=== PATIENT | male | born 1950 | race Two or more races ===

== ENCOUNTER → 2016-08-07 | Outpatient (CLI) | payer MEDICAID ==
[~2016-08-07] MED LIST: GADOBUTROL 10 ML VIAL IVP ONE
== END ==
LOC: FIMAGING 12:06
PROVIDERS: ATTEND Internal Medicine Hematology & Oncology
DX: Z12.89 Encounter for screening for malignant neoplasm of other sites (principal); C34.90 Malignant neoplasm of unspecified part of unspecified bronchus or lung
CPT/HCPCS: A9585

== ENCOUNTER → 2016-08-19 | Day surgery (SDC) | payer MEDICAID ==
[~2016-08-19] MED LIST changes: +ACETAMINOPHEN 325 MG TAB ONE; -GADOBUTROL 10 ML VIAL IVP ONE; +LIDOCAINE 1% 30 ML SDV ONE; +MIDAZOLAM 2 MG/2 ML VIAL ONE; +NS 1,000 ML IV SCH; +fentaNYL 100 MCG/2 ML INJ ONE
== END | disposition home or self-care (01) ==
LOC: FIMAGING 07:27
PROVIDERS: ATTEND Internal Medicine Hematology & Oncology
PROC: 0B9C3ZX Drainage of Right Upper Lung Lobe, Percutaneous Approach, Diagnostic (ICD-10-PCS; principal; 2016-08-19)
DX: C34.01 Malignant neoplasm of right main bronchus (principal); I10 Essential (primary) hypertension; E11.9 Type 2 diabetes mellitus without complications; I48.91 Unspecified atrial fibrillation
CPT/HCPCS: J2250; J3010

== ENCOUNTER 2016-08-27 10:10 | Emergency (ER) | payer MEDICAID ==
[2016-08-27 10:15] VITALS: RESP 16
[2016-08-27] MEDS ORDERED: OXYMETAZOLINE 30 ML NASAL SPRAY ONE (10:34)
--- NOTE | 2016-08-27 10:35 | EDPHY ---
H & P Stated Complaint: EPISTAXIS YESTERDAY AND THEN THIS AM R SIDE HPI/ROS: CHIEF COMPLAINT: Nosebleed HISTORY OF PRESENT ILLNESS: Spontaneous nose bleed that 1st started yesterday morning. Soon as he woke up stood up, he started bleeding from the right naris. This lasted for 30 minutes and stop spontaneously. This occurred again this morning around 8:00 a.m.. It has not stopped. He feels that there is some blood on the back of the throat. No chest pain. No shortness of breath. No headache. No lightheadedness or dizziness. He does take Xarelto for atrial fibrillation. It no trauma to the nose. No other associated complaints or modifying factors. REVIEW OF SYSTEMS: Ten systems reviewed and are negative unless otherwise noted in the HPI PERTINENT MEDICAL HISTORY: Atrial fibrillation on Xarelto EXAMINATION General Appearance: Alert, no distress Head: normocephalic, atraumatic Eyes: Pupils equal and round, no conjunctival pallor or injection ENT, Mouth: Mucous membranes moist. EOMs intact. There is dry blood around the right near. There is a clamp on the nose this time. The posterior pharynx does reveal mild venous blood. No pulsatile blood flow. No asymmetry of the posterior pharynx. Uvula is midline. Airway is widely patent. Neck: Normal inspection, supple, non-tender Respiratory: Lungs are clear to auscultation Cardiovascular: Irregularly irregular. No murmur. Gastrointestinal: Abdomen is soft and nontender Skin: Warm and dry, no rash Extremities: Nontender, no pedal edema Psychiatric: Mood and affect normal DIFFERENTIAL DIAGNOSES: Including but not limited to epistaxis, posterior sphenoid bleed, anterior bleed , coagulopathy, anemia MDM: 10:35 a.m. Epistaxis that is recurrent. Today's nosebleed has been present for over 2 and 0.5 hours. There is mild blood in the posterior pharynx is nonpulsatile. He is awake and alert with stable vital signs. Coagulation studies and CBC have been ordered. Pressure is being applied at this time. 11:30 a.m. Patient was still bleeding minimally around the nose clamp. I have now applied a 7.5 rhino rocket. There is good tamponade. No bleeding. He tolerated this well. Hemoglobin and platelets are within normal limits. Monitor and plan for outpatient follow-up with ENT. 12:25 p.m. Patient has not had any return of epistaxis for the past hour. He has minimal pain, for which I have ordered [place]. He has been dosed with Keflex here and will be provided prescription. He is to contact ENT upon discharge for follow- up. He is also to contact his staff midwife to discuss the Xarelto. Return here for any return of bleeding, hemoptysis or blood from the mouth. He is comfortable with this plan and discharged home stable condition PROCEDURE: Epistaxis management Indication: epistaxis Consent: verbal Description: Right near was treated with Afrin and lidocaine with epinephrine, 3 mL. 7.5 cm rhino rocket was irrigated with sterile water. This was placement of the right nasal passage without complication. Tolerated well. Bleeding was hemostasis. Follow-up: ENT in 2-3 days SUPERVISION: This patient was independently evaluated without direct examination by the attending physician. Case was discussed with attending physician. Source: Patient Exam Limitations: No limitations - Personal History Current Tetanus/Diphtheria Vaccine: Yes Tetanus Vaccine Date: < 10 YEARS - Medical/Surgical History Hx Asthma: No Hx Chronic Respiratory Disease: No Hx Diabetes: Yes Hx Cardiac Disease: No Hx Renal Disease: No Hx Cirrhosis: No Hx Alcoholism: No Hx HIV/AIDS: No Hx Splenectomy or Spleen Trauma: No Other PMH: NON SMALL CELL LUNG CANCER, DIABETES, HTN, HIGH CHOLESTEROL - Social History Smoking Status: Former smoker Constitutional: Initial Vital Signs Temperature (C) 98.6 F 08/27/16 10:11 Heart Rate 70 08/27/16 10:11 Respiratory Rate 16 08/27/16 10:11 Blood Pressure 154/81 H 08/27/16 10:11 O2 Sat (%) 93 08/27/16 10:11 O2 Delivery Mode Room Air Allergies/Adverse Reactions: No Known Allergies Allergy (Unverified 08/27/16 10:15) Home Medications: Medication Instructions Recorded Amlodipine Besylate 10 mg PO DAILY 08/15/16 Aspirin 81mg (*) 81 mg PO DAILY 08/15/16 Atorvastatin Calcium 80 mg PO DAILY 08/15/16 Centrum Silver Tablet PO DAILY 08/15/16 FENOFIBRATE 134 mg PO DAILY 08/15/16 Glimepiride 4 mg PO DAILY 08/15/16 HCTZ (*) 25 mg PO DAILY 08/15/16 Metoprolol Tartrate 25 mg PO DAILY 08/15/16 Omeprazole 40 mg PO DAILY 08/15/16 Pot Citrate-Citric Acid Packet 25 meq PO DAILY 08/15/16 Tamsulosin HCl 0.4 mg PO DAILY 08/15/16 Tradjenta 5 mg PO DAILY 08/15/16 Xarelto 20 mg PO DAILY 08/15/16 Cephalexin [Keflex (*)] 500 mg PO TID #30 cap 08/27/16 Hydrocodone/APAP 5/325 [[place]land 1 - 2 tab PO Q4H PRN #10 tab 08/27/16 5/325 (*)] Medical Decision Making - Data Points Laboratory Results: Laboratory Results 08/27/16 10:43 08/27/16 08/27/16 10:43 10:43 WBC 7.31 10^3/uL 10^3/uL (3.80-9.50) RBC 4.39 10^6/uL L 10^6/uL (4.40-6.38) Hgb 13.0 g/dL L g/dL (13.7-17.5) Hct 39.8 % L % (40.0-51.0) MCV 90.7 fL fL (81.5-99.8) MCH 29.6 pg pg (27.9-34.1) MCHC 32.7 g/dL g/dL (32.4-36.7) RDW 14.0 % % (11.5-15.2) Plt Count 472 10^3/uL H 10^3/uL (150-400) PT 18.0 SEC H SEC (12.0-15.0) INR 1.49 H (0.83-1.16) APTT 45.6 SEC H SEC (23.0-38.0) Departure - Departure Disposition: Home, Routine, Self-Care Clinical Impression: Epistaxis, Coagulation disorder Condition: Good Instructions: Nosebleed (ED) Additional Instructions: Contact primary care physician to discuss holding his Xarelto due to the nose bleed. Contact ENT physician for follow-up regarding the rhino rocket. Keflex prophylaxis as prescribed. Return here for signs of bleeding, dizziness, lightheadedness, syncope or chest pain Referrals: TALAT OLIVER [Other] - As per Instructions Shannon Messer MD [Medical Doctor] - As per Instructions Prescriptions: Cephalexin [Keflex (*)] 500 mg PO TID #30 cap Hydrocodone/APAP 5/325 [[place] 5/325 (*)] 1 - 2 tab PO Q4H PRN #10 tab PRN Reason: Pain, Moderate
[2016-08-27 10:51] LABS: HEMATOCRIT 39.8 % (40.0-51.0); LIPEMIA HEMOLYSIS FLAG 80 (0-99); MEAN CELL HEMOGLOBIN 29.6 pg (27.9-34.1); MEAN CELL HEMOGLOBIN CONCENTR. 32.7 g/dL (32.4-36.7); MEAN CELL VOLUME 90.7 fL (81.5-99.8); PLATELET COUNT 472 10^3/uL (150-400); RED BLOOD CELL COUNT 4.39 10^6/uL (4.40-6.38)
[2016-08-27 11:01] LABS: INR 1.49 (0.83-1.16)
[2016-08-27 11:02] LABS: APTT 45.6 SEC (23.0-38.0)
[2016-08-27] MEDS ORDERED: CEPHALEXIN 500 MG CAP PO ONE (11:38)
[2016-08-27] MEDS ORDERED: HYDROCODONE/APAP 5/325 TAB PO ONE (12:26)
[2016-08-27 12:53] VITALS: BP 114/72; PULSE 54; TEMP 98.8; O2SAT 96
[2016-08-27] MEDS ORDERED: OXYMETAZOLINE 30 ML NASAL SPRAY EACHNARE SCH (21:00)
== END 2016-08-27 12:52 | disposition home or self-care (01) ==
PROC: 2Y41X5Z Packing of Nasal Region using Packing Material (ICD-10-PCS; principal; 2016-08-27)
DX: R04.0 Epistaxis (principal); E11.9 Type 2 diabetes mellitus without complications; I10 Essential (primary) hypertension; D68.9 Coagulation defect, unspecified; Z79.01 Long term (current) use of anticoagulants; Z79.82 Long term (current) use of aspirin; Z85.118 Personal history of other malignant neoplasm of bronchus and lung; Z87.891 Personal history of nicotine dependence
CPT/HCPCS: J1170

== ENCOUNTER 2016-08-27 22:00 | Emergency (ER) | payer MEDICAID ==
[2016-08-27 22:15] VITALS: RESP 16; TEMP 97.7
[2016-08-27] MEDS ORDERED: HYDROmorphONE/DILAUDID 1 MG/ML SYR IM ONE (23:25)
[2016-08-28 00:18] VITALS: BP 116/78; PULSE 58; O2SAT 92
--- NOTE | 2016-08-28 00:23 | EDPHY ---
H & P Stated Complaint: pain/pressure fm Rhino Rocket Time Seen by Provider: 08/27/16 23:04 HPI/ROS: Chief complaint: Nose pain, headache HPI: 66-year-old male on Xarelto presenting with headache and face pain after having a rhino rocket placed in this emergency department earlier today. Patient has been taking Cecilia without any significant relief. Denies any fevers or chills. Has not had any further bleeding. He has made an appointment to follow up with ENT in several days. ROS: 10 point Review of Systems is negative except as noted in the HPI. Gen: Awake, Alert, No Distress HEENT: Nose: Nasal balloon in right nostril Eyes: PERRLA, EOMI Mouth: Moist mucosa Neck: Supple, no JVD Skin: no rash Neuro: CN II-XII intact, Sensation grossly intact, Strength 5/5 in bilateral upper and lower extremities - Personal History Current Tetanus/Diphtheria Vaccine: Yes Current Tetanus Diphtheria and Acellular Pertussis (TDAP): Yes Tetanus Vaccine Date: < 10 YEARS - Medical/Surgical History Hx Asthma: No Hx Chronic Respiratory Disease: No Hx Diabetes: Yes Hx Cardiac Disease: No Hx Renal Disease: No Hx Cirrhosis: No Hx Alcoholism: No Hx HIV/AIDS: No Hx Splenectomy or Spleen Trauma: No Other PMH: NON SMALL CELL LUNG CANCER, DIABETES, HTN, HIGH CHOLESTEROL - Social History Smoking Status: Former smoker Constitutional: Initial Vital Signs Temperature (C) 36.5 C 08/27/16 22:10 Heart Rate 68 08/27/16 22:10 Respiratory Rate 16 08/27/16 22:10 Blood Pressure 131/99 H 08/27/16 22:10 O2 Sat (%) 94 08/27/16 22:10 O2 Delivery Mode Room Air Allergies/Adverse Reactions: No Known Allergies Allergy (Unverified 08/27/16 10:15) Home Medications: Medication Instructions Recorded Amlodipine Besylate 10 mg PO DAILY 08/15/16 Aspirin 81mg (*) 81 mg PO DAILY 08/15/16 Atorvastatin Calcium 80 mg PO DAILY 08/15/16 Centrum Silver Tablet PO DAILY 08/15/16 FENOFIBRATE 134 mg PO DAILY 08/15/16 Glimepiride 4 mg PO DAILY 08/15/16 HCTZ (*) 25 mg PO DAILY 08/15/16 Metoprolol Tartrate 25 mg PO DAILY 08/15/16 Omeprazole 40 mg PO DAILY 08/15/16 Pot Citrate-Citric Acid Packet 25 meq PO DAILY 08/15/16 Tamsulosin HCl 0.4 mg PO DAILY 08/15/16 Tradjenta 5 mg PO DAILY 08/15/16 Xarelto 20 mg PO DAILY 08/15/16 Cephalexin [Keflex (*)] 500 mg PO TID #30 cap 08/27/16 Hydrocodone/APAP 5/325 [Cecilia 1 - 2 tab PO Q4H PRN #10 tab 08/27/16 5/325 (*)] IBUPROFEN 08/27/16 oxyCODONE/APAP 5/325 [Percocet 1 - 2 tab PO Q4H PRN #10 tab 08/28/16 5/325 (*)] Medical Decision Making ED Course/Re-evaluation: Patient given IM Dilaudid here. Feeling significantly improved. I have counseled him instructed that the nasal packing knee sustained placed the next 2 days. He will be sent home with oral Percocet as needed for pain. Follow up as scheduled. Packing is be removed in 2 days per his return instructions. - Data Points Medications Given: Discontinued Medications Hydromorphone HCl (Dilaudid) 2 mg IM EDNOW ONE Stop: 08/27/16 23:26 Last Admin: 08/27/16 23:39 Dose: 2 mg Departure - Departure Disposition: Home, Routine, Self-Care Clinical Impression: Epistaxis Condition: Good Instructions: Nosebleed (ED) Additional Instructions: He may take oxycodone every 4 hours as needed for pain, 1 mg tablets. Follow up with your doctor in [facility] in 2 days for nasal packing removal. Referrals: TALAT OLIVER [Other] - As per Instructions Prescriptions: oxyCODONE/APAP 5/325 [Percocet 5/325 (*)] 1 - 2 tab PO Q4H PRN #10 tab PRN Reason: Pain, Severe
== END 2016-08-28 00:31 | disposition home or self-care (01) ==
DX: R04.0 Epistaxis (principal); E11.9 Type 2 diabetes mellitus without complications; I10 Essential (primary) hypertension; Z79.01 Long term (current) use of anticoagulants; Z79.82 Long term (current) use of aspirin; Z85.118 Personal history of other malignant neoplasm of bronchus and lung; Z87.891 Personal history of nicotine dependence
CPT/HCPCS: J1170

== ENCOUNTER 2016-08-29 14:11 | Emergency (ER) | payer MEDICAID ==
[2016-08-29 14:17] VITALS: BP 125/71; PULSE 72; RESP 16; TEMP 97.5; O2SAT 92
--- NOTE | 2016-08-29 15:07 | EDPHY ---
H & P Time Seen by Provider: 08/29/16 15:01 HPI/ROS: CHIEF COMPLAINT: Removal of nasal packing HISTORY OF PRESENT ILLNESS: 66-year-old male who was seen here 2 days ago and had a rhino rocket placed in the right naris for epistaxis. He is unable to obtain an appointment at ENT and is wishing to have the rhino rocket removed. He no longer has bleeding. He is currently taking antibiotics. Patient denies other complaints. REVIEW OF SYSTEMS: Aside from elements discussed in the HPI, a comprehensive 10-point review of systems was reviewed and is negative. PAST MEDICAL HISTORY: Non-small cell lung cancer, hypertension, diabetes. Patient is on Xarelto. SOCIAL HISTORY: Here with his family. GENERAL APPEARANCE: Pleasant, alert, no distress. FOCUSED EXAM OF ENT: Rhino rocket is present in the right nares. No bleeding. Oropharynx is clear. No posterior blood. No bleeding from the left naris. Smoking Status: Former smoker Constitutional: Initial Vital Signs Temperature (C) 36.4 C 08/29/16 14:14 Heart Rate 72 08/29/16 14:14 Respiratory Rate 16 08/29/16 14:14 Blood Pressure 125/71 H 08/29/16 14:14 O2 Sat (%) 92 08/29/16 14:14 O2 Delivery Mode Room Air Allergies/Adverse Reactions: No Known Allergies Allergy (Unverified 08/27/16 10:15) Home Medications: Medication Instructions Recorded Amlodipine Besylate 10 mg PO DAILY 08/15/16 Aspirin 81mg (*) 81 mg PO DAILY 08/15/16 Atorvastatin Calcium 80 mg PO DAILY 08/15/16 Centrum Silver Tablet PO DAILY 08/15/16 FENOFIBRATE 134 mg PO DAILY 08/15/16 Glimepiride 4 mg PO DAILY 08/15/16 HCTZ (*) 25 mg PO DAILY 08/15/16 Metoprolol Tartrate 25 mg PO DAILY 08/15/16 Omeprazole 40 mg PO DAILY 08/15/16 Pot Citrate-Citric Acid Packet 25 meq PO DAILY 08/15/16 Tamsulosin HCl 0.4 mg PO DAILY 08/15/16 Tradjenta 5 mg PO DAILY 08/15/16 Xarelto 20 mg PO DAILY 08/15/16 Cephalexin [Keflex (*)] 500 mg PO TID #30 cap 08/27/16 Hydrocodone/APAP 5/325 [Karval 1 - 2 tab PO Q4H PRN #10 tab 08/27/16 5/325 (*)] IBUPROFEN 08/27/16 oxyCODONE/APAP 5/325 [Percocet 1 - 2 tab PO Q4H PRN #10 tab 08/28/16 5/325 (*)] MDM/Departure - [facility] ED Course/Re-evaluation: Balloon was deflated in the packing was easily removed. On examination afterwards I see no acute bleeding source. Patient is comfortable being discharged. Differential Diagnosis: Differential diagnosis: Nasal packing removal, continued epistaxis. - Depart Disposition: Home, Routine, Self-Care Clinical Impression: Acute anterior epistaxis, Encounter for removal of nasal packing Condition: Good Instructions: Nosebleed (ED) Referrals: NONE *PRIMARY CARE P,. [Primary Care Provider] - As per Instructions
== END 2016-08-29 15:12 | disposition home or self-care (01) ==
DX: R04.0 Epistaxis (principal); I10 Essential (primary) hypertension; E11.9 Type 2 diabetes mellitus without complications; C34.90 Malignant neoplasm of unspecified part of unspecified bronchus or lung; Z48.00 Encounter for change or removal of nonsurgical wound dressing; Z79.01 Long term (current) use of anticoagulants; Z79.82 Long term (current) use of aspirin; Z87.891 Personal history of nicotine dependence

== ENCOUNTER 2016-09-16 12:18 | Inpatient (IN) | payer MEDICAID ==
--- NOTE | 2016-09-16 14:44 | EDPHY ---
H & P Stated Complaint: 2 weeks sciatic back pain, pt wants stat MRI Time Seen by Provider: 09/16/16 14:23 HPI/ROS: CHIEF COMPLAINT: Lower back pain HISTORY OF PRESENT ILLNESS: This is a 66-year-old male patient presenting to the emergency department sent by [facility] to rule out any metastasis of lung cancer to spine. Patient states he was diagnosed with lung cancer in August of this year, trial of chemo, last IV chemo was 4 days ago. Patient states over the past 2 weeks he has had an increased pain in his mid back radiating to his lower back radiating to his right lower leg. Patient states" the pain is so bad I can't walk or move my legs sometime" denies any chest pain or shortness of breath no bowel or bladder incontinence REVIEW OF SYSTEMS: Constitutional: No fever, no chills. Eyes: No discharge. No blurred vision ENT: No sore throat. Cardiovascular: No chest pain, no palpitations. Respiratory: No cough, no shortness of breath. Gastrointestinal: No abdominal pain, no vomiting. Genitourinary: No no difficulty urinating Musculoskeletal: back pain. Skin: No rashes. Neurological: No headache. Source: Patient - Personal History Current Tetanus/Diphtheria Vaccine: Yes Current Tetanus Diphtheria and Acellular Pertussis (TDAP): Yes Tetanus Vaccine Date: < 10 YEARS - Medical/Surgical History Hx Asthma: No Hx Chronic Respiratory Disease: No Hx Diabetes: Yes Hx Cardiac Disease: No Hx Renal Disease: No Hx Cirrhosis: No Hx Alcoholism: No Hx HIV/AIDS: No Hx Splenectomy or Spleen Trauma: No Other PMH: NON SMALL CELL LUNG CANCER, DIABETES, HTN, HIGH CHOLESTEROL - Social History Smoking Status: Former smoker - Physical Exam Exam: General Appearance: Alert, no distress. Eyes: Pupils equal and round no pallor or injection. ENT, Mouth: Mucous membranes moist. No stomatitis Respiratory: There are no retractions, lungs are clear to auscultation. Cardiovascular: Regular rate and rhythm. Gastrointestinal: Abdomen is soft and nontender, no masses, bowel sounds normal. Neurological: No focal deficits Skin: Warm and dry, no rashes. Musculoskeletal: Thoracic/lumbar vertebral tenderness on palpation. Right hamstring tenderness on palpation full range of motion. Positive CMS intact Extremities: symmetrical, full range of motion. Psychiatric: Patient is oriented X 3, there is no agitation. Patient acting appropriate Constitutional: Initial Vital Signs Temperature (C) 36.8 C 09/16/16 12:21 Heart Rate 96 09/16/16 12:21 Respiratory Rate 16 09/16/16 12:21 Blood Pressure 111/80 09/16/16 12:21 O2 Sat (%) 98 09/16/16 12:21 O2 Delivery Mode Room Air Allergies/Adverse Reactions: No Known Allergies Allergy (Unverified 08/27/16 10:15) Home Medications: Medication Instructions Recorded Amlodipine Besylate 10 mg PO DAILY 08/15/16 Aspirin 81mg (*) 81 mg PO DAILY 08/15/16 Atorvastatin Calcium 80 mg PO DAILY 08/15/16 Centrum Silver Tablet PO DAILY 08/15/16 FENOFIBRATE 134 mg PO DAILY 08/15/16 Glimepiride 4 mg PO DAILY 08/15/16 HCTZ (*) 25 mg PO DAILY 08/15/16 Metoprolol Tartrate 25 mg PO DAILY 08/15/16 Omeprazole 40 mg PO DAILY 08/15/16 Pot Citrate-Citric Acid Packet 25 meq PO DAILY 08/15/16 Tamsulosin HCl 0.4 mg PO DAILY 08/15/16 Tradjenta 5 mg PO DAILY 08/15/16 Xarelto 20 mg PO DAILY 08/15/16 Cephalexin [Keflex (*)] 500 mg PO TID #30 cap 08/27/16 Hydrocodone/APAP 5/325 [[place] 1 - 2 tab PO Q4H PRN #10 tab 08/27/16 5/325 (*)] IBUPROFEN 08/27/16 oxyCODONE/APAP 5/325 [Percocet 1 - 2 tab PO Q4H PRN #10 tab 08/28/16 5/325 (*)] Medical Decision Making ED Course/Re-evaluation: Discussed ED plan of care: MRI of thoracic and lumbar vertebral spine, IV Dilaudid 1730: Patient MRI at this time, no apparent distress well appearing, pain has been relieved with Dilaudid. Report handed to Dr. Liu - Data Points Medications Given: Discontinued Medications Hydromorphone HCl (Dilaudid) 2 mg PO EDNOW ONE Stop: 09/16/16 14:47 Last Admin: 09/16/16 15:07 Dose: 2 mg Hydromorphone HCl (Dilaudid) 1 mg IVP EDNOW ONE Stop: 09/16/16 15:13 Last Admin: 09/16/16 15:35 Dose: 1 mg Departure - Departure Clinical Impression: Back pain Qualifiers: Back pain location: thoracic back pain Chronicity: acute Back pain laterality: midline Qualified Code(s): M54.6 - Pain in thoracic spine Condition: Good Referrals: Gerald Solis MD [Primary Care Provider] - As per Instructions
[2016-09-16] MEDS ORDERED: HYDROmorphONE/DILAUDID 2 MG TAB PO ONE (14:46)
[2016-09-16] MEDS ORDERED: HYDROmorphONE/DILAUDID 2 MG/ML INJ ONE (15:10)
[2016-09-16] MEDS ORDERED: HYDROmorphONE/DILAUDID 1 MG/ML SYR IVP ONE ×2 (15:12→20:00)
[2016-09-16] MEDS ORDERED: GADOBUTROL 10 ML VIAL IVP ONE (18:06)
--- NOTE | 2016-09-16 19:59 | EDPHY ---
ED Progress Note Narrative: The patient was signed out to me by the PA, Alexa Gaines, pending MRI results. 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 8:00 p.m.: I discussed findings with the patient. I will consult the biomedical electronics technician oncologist and neurosurgeon. 8:10 p.m.: I spoke to Dr. Quan, Oncology, who would like the patient started on a steroid and admitted to Neurosurgery. 8:15 p.m.: I spoke to Neurosurgeon, who will consult, but would like patient admitted to the hospitalist. 8:20 p.m.: I spoke to the hospitalist team, the patient will be admitted to Dr. Humphrey.
[2016-09-16] MEDS ORDERED: DEXAMETHASONE 4 MG TAB PO ONE (20:26)
[2016-09-16] MEDS ORDERED: ONDANSETRON DISINTEGRATING 4 MG TAB PO PRN (20:39)
[2016-09-16] MEDS ORDERED: ONDANSETRON 4 MG/2 ML VIAL IVP PRN (20:39)
[2016-09-16] MEDS ORDERED: ACETAMINOPHEN 325 MG TAB PO PRN (20:39)
[2016-09-16] MEDS ORDERED: MAGNESIUM HYDROXIDE 30 ML UDCUP PO PRN (20:42)
[2016-09-16] MEDS ORDERED: LACTULOSE 20 GM/30 ML UDCUP PO PRN (20:42)
[2016-09-16] MEDS ORDERED: BISACODYL 10 MG SUPP PR PRN (20:42)
[2016-09-16] MEDS ORDERED: POLYETHYLENE GLYCOL 3350 17 GM PKT PO PRN (20:42)
[2016-09-16] MEDS ORDERED: D50W 25 GM/50 ML SYR IVP PRN (21:44)
--- NOTE | 2016-09-16 21:51 | PDGENHP ---
History and Physical - Chief Complaint acute back pain - History of Present Illness primary care provider: In [place] [facility] oncologist: Dr. Solis HPI: 66-year-old male presenting with acute back pain located in the mid and lower back, characterized as severe and radiating into the right lower extremity , exacerbated by ambulation and not alleviated by home doses of ibuprofen, gabapentin, oxycodone. Patient reports that the onset of his pain was approximately 2 weeks ago and has been persistent duration and worsening thereafter. Pain became so unbearable on the day of presentation he sought medical attention. He reports that it has been somewhat alleviated by the Dilaudid received in the emergency department. He denies any constipation or urinary retention. He has otherwise been taking all of his home medications with last dose of Xarelto on the evening prior, 6/4 p.m., last dose of aspirin 6 /5 a.m.. History Information - Allergies/Home Medication List Allergies/Adverse Reactions: No Known Allergies Allergy (Unverified 08/27/16 10:15) Home Medications: Aspirin EC [Aspirin EC 81 mg (*)] 81 mg PO DAILY 09/16/16 [Last Taken 09/16/16] Atorvastatin Calcium [Lipitor 80 mg] 80 mg PO DAILY 09/16/16 [Last Taken ] Fenofibrate,Micronized [Fenofibrate] 134 mg PO DAILY 09/16/16 [Last Taken ] Gabapentin [Neurontin 100 MG (*)] 300 mg PO Q8H PRN 09/16/16 [Last Taken ] Glimepiride [Amaryl] 4 mg PO HS 09/16/16 [Last Taken 09/15/16] Hydrochlorothiazide [HCTZ (*)] 25 mg PO DAILY 09/16/16 [Last Taken 09/16/16] Linagliptin [Tradjenta] 5 mg PO DAILY 09/16/16 [Last Taken 09/16/16] Metoprolol Tartrate 25 mg PO DAILY 09/16/16 [Last Taken 09/16/16] Multivitamins [Multivitamin (*)] 1 each PO DAILY 09/16/16 [Last Taken 09/16/16] Omeprazole 40 mg PO DAILY 09/16/16 [Last Taken 09/16/16] Potassium Chloride 20 meq PO DAILY 09/16/16 [Last Taken 09/16/16] Rivaroxaban [Xarelto] 20 mg PO HS 09/16/16 [Last Taken 09/15/16] Tamsulosin HCl [Flomax 0.4 MG (*)] 0.4 mg PO DAILY 09/16/16 [Last Taken 09/16/16 ] amLODIPine BESYLATE [Amlodipine Besylate] 10 mg PO DAILY 09/16/16 [Last Taken ] I have personally reviewed and updated: family history, medical history, social history, surgical history - Past Medical History atrial fibrillation ( Status post DC cardioversion x2 with recent conversion back into AFib with news of his malignancy), diabetes type 2, hypertension, hyperlipidemia Additional medical history: metastatic non-small cell lung cancer currently receiving chemotherapy, last dosage 4 days ago. Osteoarthritis - Surgical History Additional surgical history: right knee surgery - Family History Additional family history: no family history of neurologic issues - Social History Smoking Status: Former smoker Alcohol Use: Occasionally Drug Use: None Additional social history: patient reports that he does not experience shortness of breath or chest pain when he ambulates upstairs, otherwise does not participate in regular physical exercise Review of Systems ROS: 10pt was reviewed & negative except for what was stated in HPI & below Muscolosketal: Reports: back pain Physical Exam Temp Pulse Resp BP Pulse Ox 37.3 C 79 18 103/68 92 09/16/16 21:35 09/16/16 21:35 09/16/16 21:35 09/16/16 21:35 09/16/16 21:35 O2 (L/minute) 2 Constitutional: no apparent distress, obese, uncomfortable, No not in pain ( mild pain) Eyes: PERRL, anicteric sclera, EOMI Ears, Nose, Mouth, Throat: moist mucous membranes, hearing normal, ears appear normal, no oral mucosal ulcers Cardiovascular: irregularly irregular, No systolic murmur, No tachycardia, No edema Respiratory: no respiratory distress, no rales or rhonchi, clear to auscultation Gastrointestinal: normoactive bowel sounds, soft, non-tender abdomen, no palpable masses, distension ( mildly) Musculoskeletal: other ( tenderness over the lower thoracic and upper lumbar spine) Neurologic: AAOx3, sensation intact bilaterally, other ( positive straight leg raise on the right), No weakness ( motor strength 5/5 bilateral lower extremity) Psychiatric: interacting appropriately, not anxious, not encephalopathic, thought process linear Assessment & Plan Assessment: 66-year-old male presenting with metastatic non-small cell lung cancer to the thoracic and lumbar spine with central disc herniation and cord compression resulting in acute back pain Plan: 1. Spinal cord compression and Spinal cord edema. Secondary to structural, metastatic lesions with central disc herniation resulting in pain, no evidence of bowel or bladder dysfunction, no evidence of lower extremity weakness or atrophy - placed on neuro checks - discussed with Dr. Sherrie Liu, she has informed me that Dr. Quan recommended dexamethasone and this will be continued 4 mg IV q.6 - appreciate neurosurgical evaluation to determine whether surgery is indicated - patient has an RCRI of 0 conferring 0.5% risk of perioperative cardiovascular morbidity and/or mortality, conferring a low cardiovascular risk for an intermediate to high risk neurosurgical procedure - the patient reports that he had a Lexiscan stress test within the last year I would recommend ordering these records from his outpatient provider in [place] , order placed to verify that patient had no evidence of ischemia - that being said, the patient does currently have atrial fibrillation and he is currently in a rate controlled AFib rhythm, requiring ongoing telemetry monitoring given his risk of rapid ventricular response if he does undergo surgery - would recommend that his beta-kaleigh be continued currently holding his Xarelto and aspirin, exact date of procedure to mitigate bleeding risks will be per Neurosurgery but I would recommend at least 48 hours off of Xarelto given that this is a neurosurgical procedure, and patient will be greater than 48 hours out from last dosage by 6/7 a.m. 2. Back pain. Acute, secondary to above, attempt to manage pain with oral and IV Dilaudid, continue bowel regimen, avoid nonsteroidal anti-inflammatory medications -placed gabapentin on scheduled dosing given that the patient was taking as needed at home which is an ineffective way of dosing gabapentin 3. non-small cell lung cancer. Recent diagnosis in July of 2016, reviewed outside records including brain MRI demonstrating atrophy but no intracranial metastases -patient is currently undergoing outpatient chemotherapy protocol -appreciate oncology consultation 4. Permanent atrial fibrillation. Patient is status post cardioversion x2 with recent conversion back into AFib in the setting of receiving news about his malignancy -as noted above, hold his anticoagulation anti-platelet medications -continue metoprolol -placed on telemetry monitoring to ensure he does not go into rapid ventricular response 5. Hypertension. Chronic, continue amlodipine and hydrochlorothiazide with potassium supplementation, monitor his daily electrolytes Diet. Cardiac, NPO in a.m. in case the surgical team does need to perform emergent surgery if his neurologic exam evolves Prophylaxis. High risk patient, begin SCDs given the patient may require surgery Code. Full per patient, his is MPOA Disposition. Anticipated discharge uncertain this time, anticipated length stay is greater than 48 hours warranting inpatient admission status for acute cord compression with spinal cord edema secondary to non-small cell lung cancer , likely requiring urgent surgery.
[2016-09-16] MEDS: GABAPENTIN 100 MG CAP PO SCH (23:03)
[2016-09-16] MEDS: SENNOSIDES/DOCUSATE SODIUM TAB PO SCH (23:03)
[2016-09-16] MEDS: HYDROmorphONE/DILAUDID 2 MG TAB PO PRN (23:04)
[2016-09-16] MEDS: DEXAMETHASONE 4 MG/ML VIAL IVP SCH (23:04)
[2016-09-16] MEDS: TEMAZEPAM 15 MG CAP PO PRN (23:04)
[2016-09-16] MEDS: NS 1,000 ML IV SCH (23:05)
[2016-09-17] MEDS: DEXAMETHASONE 4 MG/ML VIAL IVP SCH ×4 (05:50→23:03)
[2016-09-17] MEDS: GABAPENTIN 100 MG CAP PO SCH ×3 (05:50→21:33)
[2016-09-17] MEDS: HYDROmorphONE/DILAUDID 2 MG TAB PO PRN ×2 (05:50→21:37)
[2016-09-17] MEDS: NS 1,000 ML IV SCH ×2 (05:52→15:27)
[2016-09-17] MEDS: SENNOSIDES/DOCUSATE SODIUM TAB PO SCH ×2 (08:02→21:34)
[2016-09-17] MEDS: TAMSULOSIN HCL 0.4 MG CAP PO SCH (08:03)
[2016-09-17] MEDS: HYDROCHLOROTHIAZIDE 25 MG TAB PO SCH (08:04)
[2016-09-17] MEDS: ATORVASTATIN CALCIUM 40 MG TAB PO SCH (08:04)
[2016-09-17] MEDS: HYDROmorphONE/DILAUDID 1 MG/ML SYR IVP PRN ×2 (08:05→13:29)
[2016-09-17] MEDS: MULTIVITAMINS 1 EACH TAB PO SCH (08:05)
[2016-09-17] MEDS: INSULIN REGULAR HUMAN 100 UNIT/ML SC SCH ×4 (08:05→22:58)
[2016-09-17] MEDS: POTASSIUM CL 20 MEQ TAB PO SCH (08:05)
[2016-09-17 08:34] LABS: ALANINE AMINOTRANSFERASE 32 IU/L (21-72); ALBUMIN 3.3 g/dL (3.5-5.0); ALKALINE PHOSPHATASE 89 IU/L (38-126); ANION GAP 8 mEq/L (8-16); ASPARTATE AMINOTRANSFERASE 17 IU/L (17-59); BILIRUBIN,TOTAL 0.5 mg/dL (0.1-1.4); CALCIUM 8.5 mg/dL (8.5-10.4); CARBON DIOXIDE 24 mEq/l (22-31); CHLORIDE 107 mEq/L (97-110); CREATININE 0.7 mg/dL (0.7-1.3); GLOMERULAR FILTRATION RATE > 60; GLUCOSE 191 mg/dL (70-100); INR 1.22 (0.83-1.16); POTASSIUM 4.7 mEq/L (3.5-5.2); PROTIME(PATIENT) 15.4 SEC (12.0-15.0); SODIUM 139 mEq/L (134-144); TOTAL PROTEIN 6.2 g/dL (6.3-8.2)
[2016-09-17 08:35] LABS: APTT 35.7 SEC (23.0-38.0)
[2016-09-17] MEDS ORDERED: METOPROLOL TARTRATE 25 MG TAB PO SCH (09:00)
[2016-09-17] MEDS ORDERED: FENOFIBRATE MICRONIZED 134 MG PO SCH (09:00)
[2016-09-17] MEDS: PANTOPRAZOLE SODIUM 40 MG TAB PO SCH (10:02)
--- NOTE | 2016-09-17 12:18 | GCON ---
[f rep st] CONSULTATION REASON FOR CONSULTATION: Back pain. RECOMMENDATIONS: 1. Consideration for neurosurgical consult. 2. Most likely he will need external beam radiotherapy after we have a consultation with Neurosurge ry. 3. Definitive determination of whether or not to continue systemic treatment on a clinical trial [facility] JERICHO [id number] which is nivolumab plus ipilimumab is difficult to decide at this moment. EXECUTIVE SUMMARY: Mr. Ramos is a 66-year-old man with metastatic squamous cell carcinoma of the lung. He was initially diagnosed in [facility] in mid June with right-sided rib pain which is found to b e due to pathologic rib fracture due to a rib metastasis. He has a large mass in the inferior right upper lobe which was 9 cm in maximal dimension with central necrosis. There were some other pulmon brice nodules as well. The patient underwent a bronchoscopy which revealed a poorly differentiated sq uamous cell carcinoma. The patient had CK7 positive, CK20 negative, CD10 positive, DHEA 3 positive, HECTOR positive, CRISTINE-EP 4 positive, CK 4 and 6 variably positive, vimentin negative, Calretinin negati ve, S100 negative, TTF 1 negative. The patient has a known metastasis to liver which is about 1 cm in size. He has a normal brain scan . Alk, EGFR, and PL 1 testing are all negative. The patient's PET scan was reviewed, and while it was not specifically mentioned, there was most likely some metastases to the spine as well as the pe lvis on the PET scan. The patient was started on a clinical trial with nivolumab and ipilimumab on August 26. The patient received a dose of ipilimumab of 1 mg/kg in combination with 240 mg of nivolu mab. The ipilimumab is given once every 6 weeks, and nivolumab is given every 2 weeks. The patient was started on zoledronate at the same time. He presented to the emergency room last night with worsening upper lumbar back pain radiating into t he right leg. He had an MRI scan done at [facility], and this thoracic MRI shows a T6 disk herniation which was severe with some stenosis which has probably been chronic and old, but he also had a T11 metastasis in the posterior inferior vertebral body with surrounding bone marrow e debi with no retropulsion. The patient was placed on corticosteroids with dexamethasone last evening, and the patient's conditi on is better this morning. Neurosurgical consult is pending at this time. PAST MEDICAL HISTORY: Remarkable for the fact that he was a cigarette smoker but quit 17 years ago. He has a history of atrial fibrillation, diabetes, hypertension, and hyperlipidemia. He has also had a splenectomy. He had a traumatic splenectomy during a laparoscopic surgery for hiatal hernia i n 1999. FAMILY HISTORY: Unremarkable. SOCIAL HISTORY: He is an occasional drinker. He has been for 41 years, and he has several children who are present today. The patient works multiple different kinds of jobs but currently wo rks in [employer]. REVIEW OF SYSTEMS: His weight has been stable. He is eating relatively well. He denies any signif icant cough. He denies significant shortness of breath. He denies any chest pain at this time. He does not have any nausea or vomiting. His back pain is in the upper lumbar area, and it radiates i nto the right lower extremity. He has no extremity edema or calf tenderness. PHYSICAL EXAMINATION: Neurologically, he is intact. On abdominal exam, he is obese, but there is n o hepatosplenomegaly. There is no neurologic weakness. IMPRESSION: 1. 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 2. History of positive QuantiFERON test. 3. Chronic atrial fibrillation. PLAN: The patient is admitted. The issues are multiple. It is too early probably to assess any ki nd response, but the pain is severe. I believe the pain is most likely from T11, and the management of that is pending the neurosurgeon but most likely will require some radiation therapy. In the ia antime, I would continue the steroids. We need to be mindful that he is QuantiFERON positive. Whet her or not the patient will continue on the trial is not resolved at this time. I have not called a radiation consult yet. I am conferring with his hospitalist as well as the [facility] care. I have discussed the case with Dr. Solis. /[id number]/MODL
--- NOTE | 2016-09-17 14:33 | GCON ---
[f rep st] CONSULTATION CHIEF COMPLAINT: Back pain and right leg pain. HISTORY OF PRESENT ILLNESS: The patient is a 66-year-old male patient who is a patient of Dr. Quan. He has known metastatic squamous cell carcinoma of the lung. He was diagnosed in June, had some right-sided rib pain which was found to be due to a pathologic rib fracture and rib metastasis. The patient has been being treated with chemotherapy managed by Dr. Quan. The patient presented to the emergency room last night with worsening upper lumbar spine back pain that radiated to the right leg. He underwent MRI of the lumbar spine and the thoracic spine that showed some zdjuu-to-voomgtlt size disk herniations in the thoracic spine along with some metastasis into the L5 vertebral body. The Neurosurgery service was subsequently consulted for further management. On examination this morning, the patient was resting in bed. He had family at the bedside. He was moving well. He stated that his pain was localized down around his belt line. He denied any higher pain in his back. He also had some pain down the back of the right leg. He denied any weakness. No loss of bladder or bowel control. No new numbness or tingling in his legs or extremities. PAST MEDICAL HISTORY: Quit smoking 17 years ago, history of atrial fibrillation , diabetes hypertension, hyperlipidemia, history of splenectomy, hiatal hernia repair. FAMILY HISTORY: Reviewed and unremarkable. SOCIAL HISTORY: An occasional drinker. Has been for 41 years. He has several children who live in the area. The patient has worked multiple jobs and per family he has worked in the [employer]. REVIEW OF SYSTEMS: Please see above mentioned in the HPI. PHYSICAL EXAMINATION: VITAL SIGNS: Blood pressure 109/75, heart rate 61, respirations 19, O2 saturation is 95% on 2 L of oxygen via nasal cannula, temperature is 36.4. GENERAL: Well-developed, well-nourished male patient in no acute distress. Cranial nerves 2-12 are grossly intact. Patient's eyes are PERRLA. His extremities are intact. Sclera is anicteric. He has intact sensation over his face. His facial movements are symmetric. A facial droop noted. His tongue protrudes midline. His palate elevates symmetrically. He has intact sensation over his face, intact to light finger scratch bilaterally. His bilateral shoulder shrug is symmetric. Motor examination of the bilateral lower extremities is 5/5 for hip flexion, flexion and extension of the knee and plantar and dorsiflexion. He has intact sensation throughout the normal dermatomal distribution of his body. Focal motor strength of his upper extremities was not assessed, but he has no obvious deficits. LABORATORY: PT is 15.4, INR 1.22, APTT is 35.7. Sodium 139, potassium 4.7, chloride 107, carbon dioxide 24, anion gap 8, BUN 16, creatinine 0.7, GFR greater than 60. Glucose 191, calcium 8.5, bilirubin 0.5, AST 17, ALT 32, alkaline phosphatase 89, total protein 6.2, albumin 3.3. IMAGING: MRI of the lumbar spine with and without contrast. Six lumbar vertebral body segments osseous metastasis involving the ventral left side of the L5 vertebral body measuring 13 mm. Multilevel moderate degenerative disk disease with central disk herniations and bilateral facet arthropathy resulting in multilevel [id number]-pcjercdq central canal stenosis, worse at L3-4 and L4-5 levels; central subligamentous disk herniation at L5-L6 with facet arthropathy resulting in dkut-nq-odqjhlvt bilateral lateral recess stenosis and mild central canal stenosis. Thoracic spine MRI with and without contrast. T11 metastasis to the posteroinferior vertebral body with surrounding bone marrow edema enhancement and questionable associated nondisplaced fracture through the metastatic focus, no retropulsion, T6-7 severe central canal stenosis secondary to a large central disk herniation with cord compression and deformity, smaller disk herniations in the lower thoracic spine resulting in [id number]-yt-vxwahpci stenosis as described above (please see above findings). IMPRESSION: This is a 66-year-old male patient with new onset back pain with a history of metastatic lung cancer and several metastasis. PLAN: I have seen and examined the patient this morning. He is neurologically intact. We have kept the patient n.p.o. in anticipation of further discussion of treatment. The patient was seen by Dr. Jagruti Eden this afternoon, and after discussion of treatment options, patient will undergo an epidural steroid injection at L5. This order has been placed and will be performed by the interventional Radiology service. Recommend the patient be up and ambulatory and work with therapies, both physical therapy and occupational therapy, continue with pain management. We will reassess the patient in the morning to see if he has had any benefit from the epidural steroid injection. Please contact the Neurosurgery service of any changes and motor status or neurologic status. /[id number]/MODL MTDD
--- NOTE | 2016-09-17 14:49 | HOSPPROG ---
Hospitalist Progress Note Assessment/Plan: 66-year-old male presenting with metastatic non-small cell lung cancer to the thoracic and lumbar spine with central disc herniation and cord compression resulting in acute back pain. This is my first encounter, chart reviewed. D/W Jose Felipe and David. Plan: # Spinal cord metastatic lesions with central disc herniation resulting in pain , - no evidence of bowel or bladder dysfunction, no evidence of lower extremity weakness or atrophy - placed on neuro checks - dexamethasone and this will be continued 4 mg IV q.6 - appreciate neurosurgical evaluation, no surgery plan, just AN at L5/S1. # atrial fibrillation - currently in a rate controlled AFib rhythm - would recommend that his beta-kaleigh be continued - currently holding his Xarelto and aspirin # Back pain. - Acute -AN -avoid nonsteroidal anti-inflammatory medications -gabapentin on scheduled dosing given that the patient was taking as needed at home which is an ineffective way of dosing gabapentin #. non-small cell lung cancer. - Recent diagnosis in July of 2016, D/W Kadeem -patient is currently undergoing outpatient chemotherapy protocol -consider radiation per oncology #. Hypertension. Chronic, continue amlodipine and hydrochlorothiazide with potassium supplementation, monitor his daily electrolytes Diet. Cardiac, NPO for intervention Prophylaxis. High risk patient, begin SCDs given the patient may require surgery Code. Full per patient, his is MPOA Disposition. Anticipated discharge uncertain this time, anticipated length stay is greater than 48 hours warranting inpatient admission status f Subjective: Still having some back pain. Less then yesterday. Objective: Vital Signs Temp Pulse Resp BP Pulse Ox 36.4 C 61 19 109/75 95 09/17/16 11:58 09/17/16 11:58 09/17/16 11:58 09/17/16 11:58 09/17/16 11:58 Laboratory Results 09/17/16 08:10 09/16/16 09/17/16 09/18/16 05:59 05:59 05:59 Intake Total 1071 0 Output Total 300 550 Balance 771 -550 PT 15.4 SEC (12.0-15.0) H 09/17/16 08:10 INR 1.22 (0.83-1.16) H 09/17/16 08:10 - Physical Exam Constitutional: no apparent distress, appears nourished, uncomfortable Eyes: PERRL, anicteric sclera, EOMI Ears, Nose, Mouth, Throat: moist mucous membranes, hearing normal, ears appear normal Cardiovascular: No JVD, No tachycardia, No edema Respiratory: no respiratory distress, no rales or rhonchi, reduced air movement Gastrointestinal: No tenderness, No ascites, No guarding Skin: warm, normal color, No erythema Musculoskeletal: pain with ROM, muscular tenderness, generalized weakness Neurologic: AAOx3 Psychiatric: interacting appropriately, not anxious, not encephalopathic, thought process linear ICD10 Worksheet Patient Problems: Problems Problem Status Onset Back pain Acute
[2016-09-17] MEDS ORDERED: MIDAZOLAM 2 MG/2 ML VIAL ONE (15:50)
[2016-09-17] MEDS ORDERED: fentaNYL 100 MCG/2 ML INJ ONE (15:50)
[2016-09-17] MEDS ORDERED: TRIAMCINOLONE ACETONIDE 200 MG/5 ML MDV IM ONE (16:14)
[2016-09-17] MEDS: TEMAZEPAM 15 MG CAP PO PRN (23:03)
[2016-09-18] MEDS: DEXAMETHASONE 4 MG/ML VIAL IVP SCH ×2 (05:37→13:03)
[2016-09-18] MEDS: GABAPENTIN 100 MG CAP PO SCH ×2 (05:37→13:03)
[2016-09-18] MEDS: HYDROmorphONE/DILAUDID 2 MG TAB PO PRN ×3 (05:40→14:29)
--- NOTE | 2016-09-18 07:44 | NEUSURGPN ---
Assessment/Plan: Assessment: 66 yo male that is admitted to IM with hx of lung cancer with mets to spine and LBP with LE pain Plan: -lung CA: defer to IM/Oncology for management -MRI showed HNP at T6/7, T11 as well as stenosis at L5 with mets -pt is s/p injection and states pain is better -d/w Dr Eden and ok to s/o -continue with PT/OT -pt and updated -call with any questions or concerns -warning signs given Subjective: No new complaints or concerns. No new events per Pt and family/RN. Objective: AAO x 3, PERRLA/EOMI no droop CN 2-12 grossly intact PRABHA x 4 CDI 5/5 BUE/BLE = Neuro Check Frequency: per routine Urinary Catheter in Place: No - Physician Discussed Patient with : [facility] Physical Exam - Vitals, I&O, Labs I and O 09/17/16 09/18/16 09/19/16 05:59 05:59 05:59 Intake Total 1071 1300 Output Total 300 1650 Balance 771 -350 Weight 111.13 kg 111.13 kg Intake: Oral (ml) 400 500 IV Intake (ml) 641 IV Infused (ml) 30 800 Ns 1,000 ml @ 100 mls/hr 800 IV CONT MELODY Rx#: [id number] Output: Urine (ml) 300 1650 Urinal 300 1650 Other: Intake Quantity Yes Sufficient Number of Voids Urinal 1 2 Vital Signs Temp Pulse Resp BP Pulse Ox 36.3 C 62 16 109/64 96 09/18/16 04:00 09/18/16 04:00 09/18/16 04:00 09/18/16 04:00 09/18/16 04:00 Laboratory Results 09/17/16 08:10 ICD10 Worksheet Patient Problems: Problems Problem Status Onset Back pain Acute
--- NOTE | 2016-09-18 08:02 | CPEKG ---
Heart Rate: 41 RR Interval: 1463 P-R Interval: 212 QRSD Interval: 112 QT Interval: 480 QTC Interval: 397 P Stanton: 0 QRS Stanton: 14 T Wave Stanton: -4 EKG Severity - ABNORMAL ECG - EKG Impression: BRADYCARDIA WITH IRREGULAR RATE 32-52 EKG Impression: INCOMPLETE LEFT BUNDLE BRANCH BLOCK Electronically Signed By: Ronny Britton 18-Sep-2016 09:42:08
--- NOTE | 2016-09-18 08:49 | SOAPPROG ---
SOAP Progress Note Assessment/Plan: Assessment: 1. NSCLC SCC stage IV: stable on clinical trail. Dicussed with Dr. Solis. Continue current therapy. No radiation to T11 needed right now. 2. LBP with radiculopathy: pain is better post AN. Plan:Taper off of dexamethasone. See Dr. solis next week 09/18/16 08:46 Subjective: Came in with LBP. better after AN. Objective: Vital Signs Temp Pulse Resp BP Pulse Ox 36.3 C 52 L 21 H 113/68 97 09/18/16 07:46 09/18/16 07:46 09/18/16 07:46 09/18/16 07:46 09/18/16 07:46 Laboratory Results 09/17/16 08:10 09/17/16 09/18/16 09/19/16 05:59 05:59 05:59 Intake Total 1071 1300 Output Total 300 1650 Balance 771 -350 PT 15.4 SEC (12.0-15.0) H 09/17/16 08:10 INR 1.22 (0.83-1.16) H 09/17/16 08:10 Looks good Lungs clear CVS reg Abd neg Ext no weakness - Time Spent With Patient Time Spent With Patient: 20 min ICD10 Worksheet Patient Problems: Problems Problem Status Onset Back pain Acute
[2016-09-18] MEDS ORDERED: FENOFIBRATE MICRONIZED 134 MG PO SCH (09:00)
[2016-09-18] MEDS: ATORVASTATIN CALCIUM 40 MG TAB PO SCH (09:16)
[2016-09-18] MEDS: MULTIVITAMINS 1 EACH TAB PO SCH (09:18)
[2016-09-18] MEDS: SENNOSIDES/DOCUSATE SODIUM TAB PO SCH (09:18)
[2016-09-18] MEDS: POTASSIUM CL 20 MEQ TAB PO SCH (09:19)
[2016-09-18] MEDS: PANTOPRAZOLE SODIUM 40 MG TAB PO SCH (09:19)
[2016-09-18] MEDS: HYDROCHLOROTHIAZIDE 25 MG TAB PO SCH (09:20)
[2016-09-18] MEDS: INSULIN REGULAR HUMAN 100 UNIT/ML SC SCH ×2 (09:20→13:36)
[2016-09-18] MEDS: TAMSULOSIN HCL 0.4 MG CAP PO SCH (09:20)
[2016-09-18 11:49] VITALS: BP 112/70; PULSE 77; RESP 16; TEMP 97.6; O2SAT 93
--- NOTE | 2016-09-18 15:01 | GDS ---
[f rep st] DISCHARGE SUMMARY DISCHARGE DIAGNOSES: 1. Back pain. 2. Non-small cell lung cancer. 3. Hypertension. 4. Atrial fibrillation. 5. Spinal cord metastatic lesions. 6. Bradycardia. CONSULTATIONS: 1. Dr. Quan of Oncology. 2. Dr. Eden of Neurosurgery. STUDIES AND PROCEDURES: 1. Lumbar spine MRI. 2. Thoracic spine MRI. 3. Lumbar epidural injection. PHYSICAL EXAM: GENERAL: The patient is alert. VITAL SIGNS: Afebrile at 36.4. Pulse is 77. Resp iratory rate is 16. Blood pressure is 112/77. He is saturating 93% on room air. HOSPITAL COURSE: The patient is a 66-year-old male who presented to the hospital with complaints of back pain. He was evaluated and diagnosed with: 1. Spinal cord metastatic lesions. During this hospitalization, he received a consultation from On cology as well as Neurosurgery. It was noted that the patient would benefit from an epidural steroi d injection. He received injection performed by Dr. Hernandez of Radiology. His pain has significantly i mproved. He was also placed on Decadron and will taper this in the outpatient setting. 2. Atrial fibrillation with bradycardia. The patient's beta kaleigh has been held at the time of d isposition. He will continue on his aspirin as well as his Xarelto in the outpatient setting. 3. Non-small cell lung cancer. This is followed by Dr. Solis. He will continue chemotherapy an d follow up with Dr. Solis. 4. Hypertension. This is stable and controlled with medications. 5. Diabetes mellitus. Again, the patient will reinitiate his previously prescribed home medication s. DISPOSITION: The patient will be discharged home with his family. There are no pending studies. F to will be with Dr. Solis, his primary oncologist. DISCHARGE MEDICATIONS: Please refer to EMR form. I have provided the patient a prescription for Di laudid 2 mg, #20, and have discontinued his Lopressor prior to disposition. I spent greater than 35 minutes in the care, coordination, and management of the patient's discharge . /[id number]/MODL
== END 2016-09-18 14:32 | disposition home or self-care (01) | DRG 543 ==
LOC: OBSVTOIN 20:24 → F3N 21:12
PROVIDERS: ADMIT Internal Medicine; ATTEND Internal Medicine
PROC: 3E0S3BZ Introduction of Anesthetic Agent into Epidural Space, Percutaneous Approach (ICD-10-PCS; principal; 2016-09-17 16:05)
PROC: 3E0S33Z Introduction of Anti-inflammatory into Epidural Space, Percutaneous Approach (ICD-10-PCS; principal; 2016-09-17 16:05)
DX: C79.51 Secondary malignant neoplasm of bone (principal); C34.90 Malignant neoplasm of unspecified part of unspecified bronchus or lung; I10 Essential (primary) hypertension; E11.9 Type 2 diabetes mellitus without complications; I48.2 Chronic atrial fibrillation; R00.1 Bradycardia, unspecified; E78.5 Hyperlipidemia, unspecified; Z87.891 Personal history of nicotine dependence
CPT/HCPCS: 96374; 97161-GP; 97165-GO; 97530-GP; A9585; J1100; J1170; J1815; J2250; J3010; J3301

== ENCOUNTER → 2016-10-09 | Day surgery (SDC) | payer MEDICAID ==
[~2016-10-09] MED LIST changes: -ACETAMINOPHEN 325 MG TAB ONE; +IOPAMIDOL (ISOVUE-M 300) 15 ML VIAL ONE; -LIDOCAINE 1% 30 ML SDV ONE; -MIDAZOLAM 2 MG/2 ML VIAL ONE; -NS 1,000 ML IV SCH; +TRIAMCINOLONE ACETONIDE 200 MG/5 ML MDV IM ONE; -fentaNYL 100 MCG/2 ML INJ ONE
== END | disposition home or self-care (01) ==
LOC: FIMAGING 13:16
PROVIDERS: ATTEND Radiology Diagnostic Radiology
DX: M47.26 Other spondylosis with radiculopathy, lumbar region (principal); M51.16 Intervertebral disc disorders with radiculopathy, lumbar region; C79.51 Secondary malignant neoplasm of bone; C34.90 Malignant neoplasm of unspecified part of unspecified bronchus or lung; I10 Essential (primary) hypertension; Z87.891 Personal history of nicotine dependence
CPT/HCPCS: J3301; Q9967

== ENCOUNTER 2016-12-30 12:29 | Inpatient (IN) | payer MEDICAID ==
[2016-12-30] MEDS ORDERED: NS 1,000 ML IV ONE (13:03)
[2016-12-30] MEDS ORDERED: HYDROmorphONE/DILAUDID 1 MG/ML INJ IVP ONE (13:03)
[2016-12-30] MEDS ORDERED: ONDANSETRON 4 MG/2 ML VIAL IVP ONE (13:03)
--- NOTE | 2016-12-30 13:06 | EDPHY ---
H & P Stated Complaint: lower back pain radiataing down both legs, lung ca, mets to spine Time Seen by Provider: 12/30/16 12:45 HPI/ROS: CHIEF COMPLAINT: Back pain HISTORY OF PRESENT ILLNESS: The patient is a 66-year-old man with a history of metastatic liver cancer with metastasis to his lumbar spine and kidneys. He was seen in Dr. Gerald Solis is office today and referred here for MRIs and admission for pain control. The patient has had increased back pain radiating down both legs. He has some urinary incontinence but this is baseline. No stool incontinence. No retention. The patient has also had falls recently and Dr. Solis was concerned about brain metastasis. The patient does not have any cervical or thoracic back pain. No fever. No chest pain. No shortness of breath. He states that the pain is his primary concern. REVIEW OF SYSTEMS: Constitutional: denies: chills, fever, recent illness, recent injury EENTM: denies: blurred vision, double vision, nose congestion Respiratory: denies: cough, shortness of breath Cardiac: denies: chest pain, irregular heart rate, lightheadedness, palpitations Gastrointestinal/Abdominal: denies: abdominal pain, diarrhea, nausea, vomiting, blood streaked stools Genitourinary: denies: dysuria, frequency, hematuria, pain Musculoskeletal: See HPI Skin: denies: lesions, rash, jaundice, bruising Neurological: denies: headache, numbness, paresthesia, tingling, dizziness, weakness Hematologic/Lymphatic: denies: blood clots, easy bleeding, easy bruising Immunologic/allergic: denies: HIV/AIDS, transplant EXAM: GENERAL: Well-appearing, well-nourished and in no acute distress. HEAD: Atraumatic, normocephalic. EYES: Pupils equal round and reactive to light, extraocular movements intact, sclera anicteric, conjunctiva are normal. ENT: TMs normal, nares patent, oropharynx clear without exudates. Moist mucous membranes. NECK: Normal range of motion, supple without lymphadenopathy or JVD. LUNGS: Breath sounds clear to auscultation bilaterally and equal. No wheezes rales or rhonchi. HEART: Regular rate and rhythm without murmurs, rubs or gallops. ABDOMEN: Soft, nontender, normoactive bowel sounds. No guarding, no rebound. No masses appreciated. BACK: Low back pain, no step-offs EXTREMITIES: Normal range of motion, no pitting or edema. No clubbing or cyanosis. NEUROLOGICAL: Cranial nerves II through XII grossly intact. Normal speech, normal gait. 5/5 strength, normal movement in all extremities, normal sensation PSYCH: Normal mood, normal affect. SKIN: Warm, dry, normal turgor, no visible rashes or lesions. Source: Patient Exam Limitations: No limitations - Personal History Current Tetanus/Diphtheria Vaccine: Unsure Current Tetanus Diphtheria and Acellular Pertussis (TDAP): Unsure Tetanus Vaccine Date: < 10 YEARS - Medical/Surgical History Hx Asthma: No Hx Chronic Respiratory Disease: No Hx Diabetes: Yes Hx Cardiac Disease: No Hx Renal Disease: No Hx Cirrhosis: No Hx Alcoholism: No Hx HIV/AIDS: No Hx Splenectomy or Spleen Trauma: No Other PMH: NON SMALL CELL LUNG CANCER, DIABETES, HTN, HIGH CHOLESTEROL - Family History Significant Family History: No pertinent family hx - Social History Smoking Status: Former smoker Alcohol Use: Sober Drug Use: None Constitutional: Initial Vital Signs Temperature (C) 36.7 C 12/30/16 12:33 Heart Rate 79 12/30/16 12:33 Respiratory Rate 18 12/30/16 12:33 Blood Pressure 114/74 12/30/16 12:33 O2 Sat (%) 90 L 12/30/16 12:33 O2 Delivery Mode Room Air Allergies/Adverse Reactions: No Known Allergies Allergy (Verified 10/07/16 11:40) Home Medications: Medication Instructions Recorded Atorvastatin Calcium [Lipitor 80 80 mg PO DAILY 09/16/16 mg] Fenofibrate,Micronized 134 mg PO DAILY 09/16/16 [Fenofibrate] Gabapentin [Neurontin 100 MG (*)] 300 mg PO Q8H PRN 09/16/16 Glimepiride [Amaryl] 4 mg PO HS 09/16/16 Linagliptin [Tradjenta] 5 mg PO DAILY 09/16/16 Multivitamins [Multivitamin (*)] 1 each PO DAILY 09/16/16 Omeprazole 40 mg PO BID 09/16/16 Potassium Chloride 20 meq PO DAILY 09/16/16 Rivaroxaban [Xarelto] 20 mg PO HS 09/16/16 Tamsulosin HCl [Flomax 0.4 MG (*)] 0.4 mg PO BID 09/16/16 amLODIPine BESYLATE [Amlodipine 10 mg PO DAILY 09/16/16 Besylate] Acetaminophen [Tylenol 325mg (*)] 650 mg PO Q4HRS PRN #0 tab 09/18/16 Polyethylene Glycol 3350 [Miralax 17 gm PO DAILY PRN #0 pkt 09/18/16 17 gm (*)] Sennosides/Docusate Sodium 1 - 2 tab PO BID PRN 10/07/16 [Senokot-S] Metoprolol Tartrate [Lopressor 25 12.5 mg PO BID 12/30/16 mg (*)] Ondansetron [Ondansetron Odt] 8 mg PO Q8 PRN 12/30/16 Sertraline HCl [Zoloft 100mg (*)] 150 mg PO DAILY 12/30/16 fentaNYL [Duragesic 100 MCG Patch 100 mcg TD Q72H 12/30/16 (*)] morphINE IR [morphINE IR 15 mg (*)] 30 mg PO Q4H PRN 12/30/16 predniSONE 20 mg PO DAILY 12/30/16 Medical Decision Making ED Course/Re-evaluation: 3:00 p.m. the patient is in MRI. His pain is currently controlled. Care transferred to Dr. Stevie Daugherty at shift change. 3:30 p.m. the patient is pain controlled. He is back from MRI. I spoke with Dr. Gomes who will admit. We are pending MRI results. Differential Diagnosis: Partial list of the Differential diagnosis considered include but were not limited to; metastasis, fracture and although unlikely based on the history and physical exam, I also considered infection. - Data Points Laboratory Results: Laboratory Results 12/30/16 13:00 12/30/16 13:00 Medications Given: Amlodipine Besylate (Norvasc) 10 mg PO DAILY [facility] Stop: 06/29/17 08:59 Last Admin: 01/01/17 08:44 Dose: 10 mg Amoxicillin/Clavulanate Potassium (Augmentin 875mg) 875 mg PO BID [facility] PRN Reason: Protocol Stop: 01/31/17 13:14 Last Admin: 01/01/17 13:29 Dose: 875 mg Atorvastatin Calcium (Lipitor) 80 mg PO DAILY [facility] Stop: 06/29/17 08:59 Last Admin: 01/01/17 08:44 Dose: 80 mg Fentanyl (Duragesic) 100 mcg TD Q3D [facility] Stop: 01/11/17 12:29 Last Admin: 01/01/17 13:19 Dose: 100 mcg Fentanyl (Duragesic) 25 mcg TD Q3D [facility] Stop: 01/11/17 12:29 Last Admin: 01/01/17 13:18 Dose: 25 mcg Gabapentin (Neurontin) 400 mg PO TID [facility] Stop: 06/29/17 08:59 Last Admin: 01/01/17 08:44 Dose: 400 mg Glimepiride (Amaryl) 4 mg PO HS [facility] Stop: 06/28/17 20:59 Last Admin: 12/31/16 21:27 Dose: 4 mg Hydromorphone HCl (Dilaudid) 0.2 - 0.4 mg IVP Q2 PRN PRN Reason: Pain, Severe Unable to Take PO Stop: 01/09/17 20:34 Last Admin: 01/01/17 11:28 Dose: 0.4 mg Hydromorphone HCl (Dilaudid) 2 - 4 mg PO Q4HRS PRN PRN Reason: Pain, Severe Able to Take PO Stop: 01/11/17 12:20 Last Admin: 01/01/17 13:29 Dose: 4 mg Insulin Human Lispro (Humalog Lispro) 0 unit SC TIDMEAL [facility] PRN Reason: Protocol Stop: 06/29/17 17:59 Last Admin: 01/01/17 11:29 Dose: 3 units Metoprolol Tartrate (Lopressor) 12.5 mg PO BID [facility] Stop: 06/28/17 20:59 Last Admin: 01/01/17 08:44 Dose: 12.5 mg Miscellaneous Medication (Fenofibrate,Micronized [Fenofibrate]) 134 mg PO DAILY [facility] Stop: 06/29/17 08:59 Last Admin: 01/01/17 08:49 Dose: 134 mg Miscellaneous Medication (Linagliptin [Tradjenta]) 5 mg PO DAILY [facility] Stop: 06/29/17 08:59 Last Admin: 01/01/17 08:49 Dose: 5 mg Multivitamins (Tab-A-Carlos) 1 each PO DAILY [facility] Stop: 06/29/17 08:59 Last Admin: 01/01/17 08:44 Dose: 1 each Pantoprazole Sodium (Protonix) 40 mg PO BID [facility] Stop: 06/28/17 20:59 Last Admin: 01/01/17 08:45 Dose: 40 mg Potassium Chloride (Klor-Con) 20 meq PO DAILY [facility] Stop: 06/29/17 08:59 Last Admin: 01/01/17 08:45 Dose: 20 meq Prednisone (Prednisone) 20 mg PO DAILY [facility] Stop: 06/30/17 12:29 Last Admin: 01/01/17 13:19 Dose: 20 mg Rivaroxaban (Xarelto) 20 mg PO HS [facility] Stop: 06/28/17 20:59 Last Admin: 12/31/16 21:26 Dose: 20 mg Sertraline HCl (Zoloft) 150 mg PO DAILY [facility] Stop: 06/29/17 08:59 Last Admin: 01/01/17 08:44 Dose: 150 mg Tamsulosin HCl (Flomax) 0.4 mg PO BID [facility] Stop: 06/28/17 20:59 Last Admin: 01/01/17 08:45 Dose: 0.4 mg Zolpidem Tartrate (Ambien) 5 - 10 mg PO HS PRN PRN Reason: Sleep/Insomnia, use 1st Stop: 06/28/17 17:45 Last Admin: 12/31/16 22:08 Dose: 10 mg Discontinued Medications Dexamethasone (Decadron) 4 mg PO BID [facility] Stop: 06/29/17 20:59 Last Admin: 01/01/17 08:45 Dose: 4 mg Fentanyl (Duragesic) 100 mcg TD Q72H [facility] Stop: 01/09/17 16:44 Last Admin: 12/30/16 17:33 Dose: 100 mcg Gabapentin (Neurontin) 300 mg PO Q8H PRN PRN Reason: NEUROPATHY Stop: 06/28/17 16:40 Last Admin: 12/30/16 22:46 Dose: 300 mg Gabapentin (Neurontin) 300 mg PO ONCE ONE Stop: 12/31/16 03:42 Last Admin: 12/31/16 03:54 Dose: 300 mg Gabapentin (Neurontin) 300 mg PO TID [facility] Stop: 06/29/17 08:59 Last Admin: 12/31/16 09:41 Dose: 300 mg Hydromorphone HCl (Dilaudid) 1 mg IVP EDNOW ONE Stop: 12/30/16 13:04 Last Admin: 12/30/16 13:07 Dose: 1 mg Hydromorphone HCl (Dilaudid) 0.2 - 0.4 mg IVP Q4HRS PRN PRN Reason: Pain, Severe Unable to Take PO Stop: 01/09/17 17:45 Last Admin: 12/30/16 19:17 Dose: 0.2 mg Sodium Chloride (Ns) 1,000 mls @ 0 mls/hr IV EDNOW ONE; Wide Open PRN Reason: Protocol Stop: 12/30/16 13:04 Last Admin: 12/30/16 13:07 Dose: 1,000 mls Influenza Virus Vaccine Quadrival (Fluarix Quad 0411-1372) 0.5 ml IM .ONCE ONE Stop: 12/31/16 12:28 Last Admin: 12/31/16 13:59 Dose: 0.5 ml Methylnaltrexone [place] (Relistor) 12 mg SC ONCE ONE Stop: 01/01/17 12:57 Last Admin: 01/01/17 13:19 Dose: 12 mg Morphine Sulfate (Morphine Ir) 30 mg PO Q4H PRN PRN Reason: Pain, Breakthrough Stop: 01/09/17 16:40 Last Admin: 12/31/16 15:26 Dose: 30 mg Morphine Sulfate (Ms Contin/Oramorph) 15 mg PO BID [facility] Stop: 01/10/17 20:59 Last Admin: 01/01/17 08:44 Dose: 15 mg Morphine Sulfate (Morphine Ir) 15 - 30 mg PO Q4H PRN; Protocol PRN Reason: Pain, Breakthrough Stop: 01/09/17 16:40 Last Admin: 01/01/17 08:37 Dose: 30 mg Ondansetron HCl (Zofran) 4 mg IVP EDNOW ONE Stop: 12/30/16 13:04 Last Admin: 12/30/16 13:08 Dose: 4 mg Pneumococcal Polyvalent Vaccine (Pneumovax 23) 0.5 ml IM .ONCE ONE Stop: 12/31/16 12:28 Last Admin: 12/31/16 14:04 Dose: 0.5 ml Polyethylene Glycol (Miralax) 17 gm PO DAILY PRN PRN Reason: Constipation, patient prefers Stop: 06/28/17 16:40 Last Admin: 12/31/16 22:18 Dose: 17 gm Prednisone (Prednisone) 20 mg PO DAILY [facility] Stop: 06/29/17 08:59 Last Admin: 12/31/16 09:40 Dose: 20 mg Departure - Departure Disposition: [facility] Acute Clinical Impression: Back pain Qualifiers: Back pain location: low back pain Chronicity: unspecified Back pain laterality : midline Sciatica presence: unspecified whether sciatica present Qualified Code (s): M54.5 - Low back pain Lung cancer Qualifiers: Laterality: unspecified laterality Lung location: unspecified part of lung Qualified Code(s): C34.90 - Malignant neoplasm of unspecified part of unspecified bronchus or lung Condition: Fair
[2016-12-30 13:09] LABS: % IMMATURE GRANULYOCYTES 0.7 % (0.0-1.1); ABSOLUTE IMMATURE GRANULOCYTES 0.08 10^3/uL (0.00-0.10); ADD DIFF? NO; ADD MORPH? NO; ADD SCAN? NO; ATYPICAL LYMPHOCYTE FLAG 10 (0-99); FRAGMENT RBC FLAG 20 (0-99); HEMATOCRIT 37.5 % (40.0-51.0); HEMOGLOBIN 12.1 g/dL (13.7-17.5); LEFT SHIFT FLG 0 (0-99); LIPEMIA HEMOLYSIS FLAG 80 (0-99); MEAN CELL HEMOGLOBIN 28.9 pg (27.9-34.1); MEAN CELL HEMOGLOBIN CONCENTR. 32.3 g/dL (32.4-36.7); MEAN CELL VOLUME 89.5 fL (81.5-99.8); MEAN PLATELET VOLUME 10.1 fL (8.7-11.7); PLATELET CLUMPS FLAG 40 (0-99); PLATELET COUNT 331 10^3/uL (150-400); RED BLOOD CELL COUNT 4.19 10^6/uL (4.40-6.38); RED CELL DISTRIBUTION WIDTH 17.9 % (11.5-15.2)
[2016-12-30 13:36] LABS: ALANINE AMINOTRANSFERASE 284 IU/L (21-72); ALBUMIN 3.4 g/dL (3.5-5.0); ALKALINE PHOSPHATASE 222 IU/L (38-126); ANION GAP 9 mEq/L (8-16); ASPARTATE AMINOTRANSFERASE 146 IU/L (17-59); BILIRUBIN-CONJUGATED 0.7 mg/dL (0.0-0.5); BILIRUBIN-UNCONJUGATED 0.3 mg/dL (0.0-1.1); CALCIUM 8.9 mg/dL (8.5-10.4); CARBON DIOXIDE 28 mEq/l (22-31); CHLORIDE 98 mEq/L (97-110); CREATININE 0.8 mg/dL (0.7-1.3); GLOMERULAR FILTRATION RATE > 60; GLUCOSE 69 mg/dL (70-100); POTASSIUM 3.7 mEq/L (3.5-5.2); SODIUM 135 mEq/L (134-144); TOTAL PROTEIN 6.3 g/dL (6.3-8.2)
[2016-12-30] MEDS ORDERED: GADOBUTROL 10 ML VIAL IVP ONE (14:15)
[2016-12-30] MEDS ORDERED: SENNOSIDES/DOCUSATE SODIUM TAB PO PRN (16:41)
[2016-12-30] MEDS ORDERED: ONDANSETRON 8 MG PO PRN (16:41)
[2016-12-30] MEDS ORDERED: GABAPENTIN 300 MG CAP PO PRN (16:41)
[2016-12-30] MEDS ORDERED: fentaNYL 100 MCG PATCH TD SCH (16:45)
[2016-12-30] MEDS ORDERED: ONDANSETRON DISINTEGRATING 4 MG TAB PO PRN ×2 (16:51→17:46)
[2016-12-30] MEDS ORDERED: HYDROmorphONE/DILAUDID 1 MG/ML INJ IVP PRN (17:46)
[2016-12-30] MEDS ORDERED: ACETAMINOPHEN 325 MG TAB PO PRN (17:46)
[2016-12-30] MEDS ORDERED: ONDANSETRON 4 MG/2 ML VIAL IVP PRN (17:46)
--- NOTE | 2016-12-30 19:18 | PDGENHP ---
History and Physical History and Physical: CC: Back pain and bilateral leg pain HISTORY: This patient with known metastatic lung cancer sent in from Dr. Solis office because of back and bilateral leg pain which is new. Patient does have some chronic back pain related to metastatic disease and is on some pain medications for these. However in the last 3 days he has had steadily increasing low lumbar pain as low well as radicular pain in both legs that goes down the posterior thigh past the knee and into the ankle and foot on each side. This is consistent with neuropathic pain. There is no loss of sensation but he does feel slightly weak. The patient has had no change in bowel or bladder function. He does have chronic constipation from his ongoing pain medicine use and uses laxative successfully for that. There is no fever. Notably before the onset of pain 3 days ago he did 3 days ago while working on a car fall backward and landed on his buttock. It was later that night that he had the new onset of pain. The pain is fairly debilitating for him and he has a significant increase in the pain when he bends over. He has been taking his same doses of pain medication that he usually takes. He tells me that he thinks this is too much medicine as it makes him feel lightheaded and woozy at times but never makes him sleepy and he is not nauseous with it. Notably he also does have some lumbar disc disease and several months ago was treated here with an epidural steroid injection which he says gave him partial relief of some radicular pain he was having at that time. He has had no spine surgeries. Know whether he is that the patient is currently taking prednisone at 20 mg daily, tapered down from 60 mg. This is medicine he is taking because of a hepatic reaction to recent immune therapy for his lung cancer. He says the prednisone has made his sugars run a bit higher ROS: A comprehensive 10 system review revealed no other significant findings PAST MEDICAL HISTORY: Stage IV squamous cell carcinoma of the lung status post treatment with several different immune related medications. He is currently not receiving any treatment as he had a liver reaction to his most recent therapy, and they are waiting for his liver to settle down before trying new medication. Notably he is on some steroid for that as above. He has not had any radiation therapy. Atrial fibrillation, status post cardioversions Type 2 diabetes Hypertension Osteoarthritis Right knee replacement FAMILY MEDICAL HISTORY: No prior lung cancers in the family SOCIAL HISTORY: for 41 years, with his and several family members here at the bedside with him and they are very supportive Former smoker Notably he does still wish to be full cor MEDICATIONS: The patients list has been reconciled by our clinical pharmacist in the EMR. I have reviewed the list and ordered appropriate medicines. PHYSICAL EXAMINATION: Vital Signs: Stable without fever Examination: General: alert, oriented, good mentation, relaxed Skin: warm, dry, good color, no rash HEENT: normal Neck: no mass or jvd Resps: relaxed Lungs: clear breath sounds Heart: regular, no murmur Abdomen: soft, nondistended, nontender, +BS, no mass On examination of the back the spine has normal alignment and normal lordosis. There is no spine tenderness per se. He has normal strength throughout both lower extremities with the possible exception of his left hip flexion which at 1 point tested a little bit weak for me and other try tested normal. There is no loss of sensation. Ankle tendon reflexes are slightly symmetrically decreased knees are normal. Straight leg raise did elicit some sciatic pain. No Bleeding or bruising Neurologic: normal speech/language, normal hourly shift, no focal weakness IV site: looks normal LABORATORY DATA: White blood cell count elevated 11.9 with mild increase in neutrophils Mild anemia hemoglobin 12 He does have ongoing elevation of liver enzymes in the 200s and elevation of lipase RADIOLOGY STUDIES: MRI of the spine is done and I reviewed the images of that and reviewed the results with Dr. Boyer of Radiology. He does have some new vertebral body metastases at L1-2 but none of his metastatic disease of the spine is causing any neural impingement or narrowing of the canal. He does have some chronic disc disease which has been present. Overall there is not a definite cause of sciatic identified in Dr. pan readings. MRI of the brain is done with no evidence of metastatic lesions in the brain. There is a small white matter lesions that could potentially be an old ischemic lesion. ASSESSMENT: # bilateral sciatica and lumbar pain new in the last 3 days, occurring after he fell backward onto his buttock 3 days ago. This certainly sounds like spine related neuropathic pain however per radiology reading of the MRI of the spine today a cause of this is not clearly identified. Would like to have Neurosurgery review his MRI scanning get their opinion. He is already on some oral steroid. Would certainly like to be able to come up with some kind of none medicinal treatment for his pain but would like to get the final opinion about the MRI before deciding what to trying do. He is already on narcotic which is at a dose that he thinks is more than he should take, and is already on gabapentin. 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 has had for his lung cancer he is on oral prednisone at a tapering dose for this at present # type 2 diabetes mellitus # stage IV squamous cell carcinoma of the lung with disease in the liver and spine normal MRI of the brain today # history of permanent atrial fibrillation on rate control and anticoagulation # does wish to be full cor PLANS: -will place on observation though depending on his progress may need to stay long enough to changed inpatient -will concert neurosurgery to review his examination and MRI scan to help determine the cause of his symptoms and make treatment plans -continue current medications, will follow his sugars closely I have reviewed the patient's case in detail with Dr. Nilson Fish I have reviewed the patient's past medical records as part of this assessment, including previous hospital records including physician notes, and imaging studies, lab data
[2016-12-30] MEDS: HYDROmorphONE/DILAUDID 1 MG/ML INJ IVP PRN (20:45)
[2016-12-30] MEDS: GLIMEPIRIDE 2 MG TAB PO SCH (20:51)
[2016-12-30] MEDS: METOPROLOL TARTRATE 25 MG TAB PO SCH (20:51)
[2016-12-30] MEDS: PANTOPRAZOLE SODIUM 40 MG TAB PO SCH (20:51)
[2016-12-30] MEDS: RIVAROXABAN 20 MG TAB PO SCH (20:51)
[2016-12-30] MEDS: TAMSULOSIN HCL 0.4 MG CAP PO SCH (20:51)
[2016-12-30] MEDS ORDERED: NON-FORMULARY NEW DRUG (Glimepiride [Amaryl] 4 MG) PO SCH (21:00)
[2016-12-30] MEDS ORDERED: NON-FORMULARY NEW DRUG (Omeprazole [Omeprazole] 40 MG) PO SCH (21:00)
[2016-12-30] MEDS: ZOLPIDEM TARTRATE 5 MG TAB PO PRN (21:01)
[2016-12-31] MEDS: HYDROmorphONE/DILAUDID 1 MG/ML INJ IVP PRN ×4 (01:40→22:46)
[2016-12-31] MEDS ORDERED: GABAPENTIN 300 MG CAP PO ONE (03:41)
[2016-12-31] MEDS ORDERED: predniSONE 20 MG TAB PO SCH (09:00)
[2016-12-31] MEDS ORDERED: GABAPENTIN 300 MG CAP PO SCH (09:00)
[2016-12-31] MEDS: TAMSULOSIN HCL 0.4 MG CAP PO SCH ×2 (09:39→21:26)
[2016-12-31] MEDS: PANTOPRAZOLE SODIUM 40 MG TAB PO SCH ×2 (09:40→21:25)
[2016-12-31] MEDS: POTASSIUM CL 20 MEQ TAB PO SCH (09:40)
[2016-12-31] MEDS: ATORVASTATIN CALCIUM 40 MG TAB PO SCH (09:40)
[2016-12-31] MEDS: SERTRALINE HCL 100 MG TAB PO SCH (09:41)
[2016-12-31] MEDS: MULTIVITAMINS 1 EACH TAB PO SCH (09:41)
[2016-12-31] MEDS: METOPROLOL TARTRATE 25 MG TAB PO SCH ×2 (09:41→22:25)
[2016-12-31] MEDS: POLYETHYLENE GLYCOL 3350 17 GM PKT PO PRN ×2 (09:56→22:18)
[2016-12-31] MEDS: FENOFIBRATE MICRONIZED 134 MG PO SCH (10:02)
[2016-12-31] MEDS ORDERED: FLU VACC QS 2017-18 (3YR+)/PF 0.5 ML SYR (FLUARIX QUAD) IM ONE (12:27)
[2016-12-31] MEDS ORDERED: PNEUMOCOCCAL 0.5ML VACCINE VIAL IM ONE (12:27)
--- NOTE | 2016-12-31 13:11 | ASMTCASEMG ---
Living Arrangements What is your living Answers: With Spouse arrangement? Who do you live with? Type Of Residence What kind of residence do Answers: House you live in? Case Management Evaluation Functional: Able to Answers: No Notes: Pain in back return Home with Prior Level of Function/Care Functional: ADL / IADL Answers: Mobility Issues Performance Deficits Due to: Psychosocial Needs: Answers: Terminal Illness Education Needs Answers: Disease Teaching Discharge Plan Comments Coordination Status Comments Notes: Met with patient, spouse and son to discuss possible d/c needs. Patient says that he is unsure what the plan ahead is since he had a reaction to his cancer treatment at the beginning of his third. curt. of a trial medication. He reports having been diagnosed in August following some back pain. Asked patient about needs they might have while here and they said if they are in the hospital vety long they would appreciate a occupational health physician coming to see them. case management will continue to follow. Date Signed: 12/31/2016 01:11 PM Electronically Signed By:CARINA Britt
[2016-12-31] MEDS ORDERED: D50W 25 GM/50 ML SYR IVP PRN (13:13)
--- NOTE | 2016-12-31 13:17 | GCON ---
[f rep st] CONSULTATION NEUROSURGERY CONSULTATION CHIEF COMPLAINT: Back and leg pain. HISTORY OF PRESENT ILLNESS: The patient was seen in September at a prior admission for back pain by Dr. Samson castañeda. He has known metastatic lung cancer and Dr. Solis is his oncologist. He presented to the hospital with worsening back and bilateral leg pain. He does have some chronic back pain related to his metastatic disease and is on pain medications for this. Patient and his family report that his pain has been steadily worsening and he now has leg pain that goes all the way down to the foot when previously it stopped at the level of the knee. He also feels weaker in his legs and is using a walk er to assist with ambulation. Patient was admitted to the medicine service for further treatment, an d the neurosurgery service was subsequently consulted. Currently the patient is resting in bed. He states that the pain medications he is on are not adequately managing his pain. His states that his pain is in his low back, goes down into his buttock and then into the front of the left leg down into the foot. He has been on some prednisone due to elevated liver enzymes, and when he was on a h igher dose of this, his blood sugars went up. Patient states that on the higher dose of prednisone h e felt slightly better in regard to his back and leg pain, but he did not have significant relief of his pain at that time. He states that he has intact sensation over his legs. No numbness or tinglin g, but does have persistent leg pain and low back pain. He states that the steroid injection he had during his last admission did not do much for him. REVIEW OF SYSTEMS: Please see above-mentioned in the HPI. PAST MEDICAL HISTORY: Stage IV squamous cell carcinoma, atrial fibrillation, type 2 diabetes, hypert ension, osteoarthritis, right knee replacement. SOCIAL HISTORY: Patient is . His accompanies him along with other family members. He i s a former smoker. Per the medical record, patient wishes to be a full core. MEDICATIONS: Please see the hospital medication list. PHYSICAL EXAMINATION: VITAL SIGNS: Blood pressure is 127/88, heart rate is 70, O2 sat is 92% on navi m air. Respirations are 16. Temperature is 37.1 Celsius. GENERAL: This is a well-developed, well- nourished male patient. He is in no acute distress. EXTREMITIES: He moves all 4 extremities withou t gross deficits. On focused motor examination of bilateral lower extremities, he has 5/5 bilaterall y for hip flexion, flexion-extension at the knee, and plantar flexion. Dorsiflexion on the left is a pproximately 5-/5 and dorsiflexion on the right is 5/5. He has absent patellar reflexes. Negative B abinski. He has intact sensation over his legs without any areas of decreased sensation. LABORATORY DATA: White blood cells 11.89, red blood cells 4.19, hemoglobin 12.1, hematocrit 37.5, RD W is 17.9, platelet count is 331. Sodium 135, potassium 3.7, chloride 98, carbon dioxide 28, anion gap 9, BUN 15, creatinine 0.8, GFR g reater than 60, glucose 69, calcium 8.9. Total bilirubin 1.0, conjugated bilirubin 0.7, unconjugated bilirubin is 0.3, AST is 146, ALT is 284, alk phos is 222, total protein 6.3, albumin 3.4, lipase 16 12. IMAGING: MRI of the brain with and without contrast: No evidence for intracranial metastatic diseas e. Small white matter lesion, posterior right frontal lobe which is nonspecific and could be seconda ry to small vessel ischemic disease. No evidence for acute infarct. Mild generalized cerebral atrop hy. Mild chronic sinus related change. Lumbar spine MRI: Progression of osseous metastatic disease in the lumbar spine with new lesions in the L1 and L2 vertebral bodies as above. Multilevel degenerative disk and degenerative joint disease in lumbar spine with a stable appearance as detailed above by level. IMPRESSION: This is a 66-year-old male patient with stage IV metastatic lung cancer. He has worseni ng back pain and left leg pain. PLAN: I reviewed the patient's MRI with Dr. Eden today. There are new bony lesions at L1 and L2, but no significant new nerve compression to explain his worsening left leg pain. I discussed treatm ent options with the patient and also with Dr. Eden today. Given that he is diabetic and is alrea dy having issues keeping his blood sugar at an appropriate level with steroid use, this would not be our first-line recommendation for trying to manage his symptoms. We could try increasing his gabapen tin to see if that helps his nerve pain, and I will plan to increase his gabapentin to 400 mg three t imes daily from 300 mg three times daily. I think I will largely have to work on pain management wit h this patient, and possibly adjusting his pain medications that he is currently taking. While he is here in the hospital, would recommend he work with Physical Therapy and Occupational Therapy. At th is time, there are no plans for surgical intervention, as there is no significant nerve compression t hat would require surgery. I have discussed the patient with Dr. Jagruti Eden, who has seen the priya ent this afternoon and discussed with the family as well. I have paged the hospitalist service so th at I can discuss with the physician taking care of this patient today as well. Please contact the neurosurgery service for any additional questions or concerns. /[id number]/MODL
[2016-12-31] MEDS: GABAPENTIN 400 MG CAP PO SCH ×2 (15:24→21:26)
--- NOTE | 2016-12-31 17:18 | NEUSURGPN ---
Assessment/Plan: Please see dictation from earlier today for complete consult note. 66 yo M with mets to spine, c/o back pain and left leg pain MRI reviewed without significant nerve compression. Recommend focusing on pain management, currently do not recommend AN or surgical intervention. Bumped up gabapentin dose to see if this provides some benefit. Pt seen and D/w Dr Eden NS will sign off and follow peripherally, please call with any questions or concerns - Physician Discussed Patient with : [facility] Physical Exam - Vitals, I&O, Labs I and O 12/30/16 12/31/16 01/01/17 05:59 05:59 05:59 Intake Total 1250 Output Total 450 Balance 800 Weight 102.194 kg Intake: Oral (ml) 250 IV Infused (ml) 1000 Output: Urine (ml) 450 Toilet 450 Other: Number of Voids Toilet 2 Vital Signs Temp Pulse Resp BP Pulse Ox 36.9 C 66 18 124/72 H 90 L 12/31/16 13:56 12/31/16 13:56 12/31/16 13:56 12/31/16 13:56 12/31/16 13:56 ICD10 Worksheet Patient Problems: Problems Problem Status Onset Back pain Acute Lung cancer Acute
--- NOTE | 2016-12-31 17:30 | HOSPPROG ---
Hospitalist Progress Note Assessment/Plan: 66 yo male with h/o stage IV SCC lung cancer admitted for pain control in setting of worsening back pain with radicular component. Acute back pain with radicular symptoms - MRI shows progression of spine mets with new lesions in L1 and L2. Mild - mod neural foraminal narrowing could explain his radicular pain in quad distribution. -agree with increasing neurontin, continue up-titration by 300 mg q 2-3 days -change prednisone to dexamethasone -add MS Contin and up-titrate as needed, cont morphine IR for breakthrough pain -PT/OT Stage IV SCC of lung - Pt seen by oncology here, chemo planned as outpatient. 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 May need to up-titrate insulin with steroid use. Hypertension - cont current regimen Hemoptysis - "grape-size" amt of BRB, CXR shows progression of cancer. Doubt PE as he is on Xarelto. Follow. Full code Dispo - change to inpt, needs ongoing hospitalization for pain control, acute PT /OT. Subjective: Pt continues to have back pain. Shooting pains into his legs, worse in LLE, quadricept region. Feels like a sharp electrical pain. No loss of bowel or bladder control. No fevers. RN reported a "grape-size" amount of hemoptysis today. Objective: Vital Signs Temp Pulse Resp BP Pulse Ox 36.9 C 66 18 124/72 H 90 L 12/31/16 13:56 12/31/16 13:56 12/31/16 13:56 12/31/16 13:56 12/31/16 13:56 12/30/16 12/31/16 01/01/17 05:59 05:59 05:59 Intake Total 1250 Output Total 450 Balance 800 - Physical Exam Constitutional: no apparent distress Eyes: PERRL Ears, Nose, Mouth, Throat: moist mucous membranes Cardiovascular: regular rate and rhythym Respiratory: no respiratory distress, clear to auscultation Gastrointestinal: normoactive bowel sounds, soft, non-tender abdomen Skin: warm Musculoskeletal: full muscle strength Neurologic: AAOx3 Psychiatric: interacting appropriately ICD10 Worksheet Patient Problems: Problems Problem Status Onset Back pain Acute Lung cancer Acute
[2016-12-31] MEDS: INSULIN LISPRO 100 UNIT/ML SC SCH (18:23)
[2016-12-31] MEDS: DEXAMETHASONE 4 MG TAB PO SCH (21:25)
[2016-12-31] MEDS: RIVAROXABAN 20 MG TAB PO SCH (21:26)
[2016-12-31] MEDS: GLIMEPIRIDE 2 MG TAB PO SCH (21:27)
[2016-12-31] MEDS: morphINE SR 15 MG TAB PO SCH (21:27)
[2016-12-31] MEDS: ZOLPIDEM TARTRATE 5 MG TAB PO PRN (22:08)
[2017-01-01] MEDS: HYDROmorphONE/DILAUDID 1 MG/ML INJ IVP PRN ×5 (02:51→20:24)
--- NOTE | 2017-01-01 03:38 | GCON ---
[f rep st] CONSULTATION RADIATION ONCOLOGY CONSULTATION NOTE DATE OF CONSULTATION: 12/31/2016 REFERRING PHYSICIAN: Medical Oncology REFERRING SERVICE: Medical Oncology CHIEF COMPLAINT: Metastatic non-small cell lung cancer admitted for acute on chronic low back pain, found to have progression of his disease on MRI. Role of palliative radiation. PATIENT IDENTIFICATION: The patient is a 66-year-old gentleman with a prior history of metastatic no n-small cell lung cancer, clinical T3 N1 M1b, of his lung, rib, liver and lumbar spine. He was previ ously treated on clinical trial with Dr. Gerald Solis consisting of nivolumab and low dose ipilimum ab but had to be discontinued given progression as well as autoimmune hepatitis. He was [facility] adm [facility] acute on chronic low back pain and was found to have MRI evid ence of disease progression in that location. Dr. Solis has consulted me regarding a role of pall iative radiation. HISTORY OF PRESENT ILLNESS: The patient was initially diagnosed with his malignancy in June [address] he presented with right-sided rib pain that became severe. A CT scan of the chest showed a large mass in the right upper lobe extending to the hilum measuring 9.1 cm. There was 8th rib cortical de fect as well as a mild right hilar adenopathy. He ultimately underwent a bronchoscopy and biopsy whi ch showed a poorly differentiated carcinoma, possible lung primary versus a metastatic lesion of unkn own primary, likely upper GI or mesothelial or urothelial. A PET scan for initial staging showed the lung tumor, a bone lesion and a 1 cm metastasis to the liver with no other sites of disease. A brai n MRI was normal. Dr. Solis enrolled him on a clinical trial consisting of nivolumab and low dose ipilimumab. He vaz s some issues with pain flare initially with treatment and did develop transaminase elevation suggest ion of autoimmune hepatitis related to this immunotherapy. He was started on prednisone, which is cu rrently being tapered. Given some re-staging scans showing progression, it was decided to take the p atient off the trial and pursue another type of systemic therapy. About 3 days ago, he was doing some work on a vehicle and fell from standing to the ground. This was associated with some increase of his low back pain which he has had for several years. He has had p rior injections to the lumbar spine with steroids and that has not helped much. He was escalating up on his narcotic pain medication until he got to the point where he was told to go to the hospital fo r further pain control as his pain was not being controlled on oral narcotics. Since he has been in the hospital, an MRI was performed of his brain which showed no evidence for int racranial metastatic disease. A lumbar spine MRI was performed which showed progression of osseous m etastatic disease in the lumbar spine with new lesions in L1-L2 vertebral bodies. He does have multi -level degenerative disk and degenerative joint disease of the lumbar spine that was stable in appear ance. He was evaluated by Dr. Eden in the neurosurgical team who mostly attributed his pain to potential degenerative joint disease as there were no obvious metastatic lesions compressing the nerves. Since being in the hospital and receiving IV pain medications as well as a fentanyl patch, the patien t overall feels slightly improved low back pain. He does continue to localize this to the lower lumb ar spine and the upper portion of the sacrum and says that it does radiate down mainly to his left qu ad and down to his left foot. He does have some radiation down to his right leg, but not as severe. He denies any bowel or bladder issues. He has been walking the halls in the hospital and does repor t a little bit of weakness but still able to ambulate with a walker. He denies significant pain anyw here else. Otherwise, his breathing has been stable. No focal neurologic issues. No sensory change s in his lower extremities. REVIEW OF SYSTEMS: A complete review of systems was obtained and was negative except as mentioned ab ove. PAST MEDICAL HISTORY: 1. Lung cancer as outlined above. 2. Atrial fibrillation. 3. Type 2 diabetes. 4. Hypertension. 5. Osteoarthritis. 6. Right knee replacement. PAST SURGICAL HISTORY: Right knee replacement. FAMILY HISTORY: Noncontributory. SOCIAL HISTORY: He lives in [place] with his . He is here in the hospital with his sister. He has for 41 years. He has several family members in the area as well. 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 MEDICATIONS: Tylenol, Norvasc, Lipitor, Duragesic, Neurontin, Amaryl, Dilaudid, lispro, Lopressor, m orphine 30 mg p.o. q.4 hours as needed for pain, Zofran, Protonix, MiraLAX, prednisone 20 mg per day, Xarelto, Senokot, Zoloft, Flomax, Ambien. ALLERGIES: No known drug allergies. PHYSICAL EXAMINATION: VITAL SIGNS: Blood pressure 124/72, oxygen sats 90%, respiratory rate 18, hea rt rate 66, temp 36.9. GENERAL: When I initially saw the patient, he was actually walking the hallw ay and ambulating with a cautious gait but with a walker. He was in no obvious pain during his walke r. Well-appearing gentleman, otherwise. MUSCULOSKELETAL: On palpation of the entire vertebral colu mn, he does have some tenderness to palpation in the lower lumbar spine but nothing else. There is s ome rib discomfort toward the right. There are no bony abnormalities or skeletal step-off deformitie s. NEUROLOGIC: Cranial nerves 2-12 are intact. 4/5 strength in the lower extremities and 5/5 stren gth in the upper extremities. Sensation to light touch is intact in the bilateral lower extremities. IMAGING: Please see HPI above. PATHOLOGY: Metastatic non-small cell lung cancer. ASSESSMENT AND PLAN: The patient is a 66-year-old gentleman with metastatic non-small cell lung canc er to lung, bone and liver, status post initial nivolumab and low dose ipilimumab on trial. Currentl y, off trial given disease progression and autoimmune hepatitis. He was admitted for acute on chroni c low back pain. I am being consulted regarding the role of palliative radiation to his lumbar spine . I had a long discussion with the patient today in the hospital regarding diagnosis and management of metastatic non-small cell lung cancer. Once again, he has been on systemic therapy on clinical trial with immunotherapy with Dr. Solis and was awaiting restaging scans to evaluate for response and n eed for further systemic treatment, but was admitted for acute on chronic low back pain. MRI shows m ulti-level metastasis in the lumbar spine and a few new lesions that have progressed since his prior scan. The exact etiology of his low back pain is a little bit puzzling as he does have severe disk disease, degenerative joint disease, and these metastasis. He was evaluated by the neurosurgical team who th inks his pain is most likely attributed to degenerative joint disease and may not be related to the m etastatic lesions. I do agree that, after reviewing the MRI, his lesions seemed to be confined to th e vertebral bodies and do not seem to be associated with the soft tissue component that would be comp ressing the nerves that exit the foramen. However, his pain does seem to be discordant with a pure d egenerative joint disease etiology and possibly could have a component of metastatic disease progress ion. Dr. Solis has asked me to evaluate him regarding palliative radiation and a short course of radiation to hopefully alleviate his pain. I think this is a reasonable approach and I will focus on the entire lumbar spine, L1-L5, since there are multiple lesions in that location to see if we can h elp his pain. I explained to the patient that this is in no way a curative type of treatment and the re is about a 50% chance that we will be able to help his pain. I cannot guarantee that the pain com pletely goes away, but the goal is to reduce it to a bearable level to the point where maybe he can r educe the amount of narcotics that he requires for pain control. I discussed that the radiation may be associated with a pain flare which could temporarily increase his pain. However, I put this risk at low since he is currently on prednisone for his autoimmune hepatitis, which would alleviate any in flammation from radiation. I would recommend a dose of 20 Gy in 5 fractions, with 4 Gy per fraction, and we will plan to perform a CT simulation of him tomorrow morning and hopefully be able to get started later this week. After which, the plan is to pursue second line systemic therapy with Dr. Solis and to potentially get a CT chest, abdomen and pelvis prior to determine his disease response in the lungs and elsewhere. I discussed the pros, cons, risks and benefits as well as the acute and usp side effect profile o f external beam radiotherapy with the patient today. Acute side effects would include fatigue, skin irritation, itching and dryness of the skin, pain flare, loose stools, diarrhea, nausea, vomiting, da mage to the nerves, bladder irritation, rectal or small bowel irritation, inability to control his pa in. After our discussion today, the patient has expressed a desire to move forward with radiation to help alleviate his pain. We will see him in our clinic tomorrow morning. We will sign consents and go o anne more of the logistics of radiation with the patient and his family. /[id number]/MODL
[2017-01-01] MEDS: GABAPENTIN 400 MG CAP PO SCH ×3 (08:44→22:21)
[2017-01-01] MEDS: SERTRALINE HCL 100 MG TAB PO SCH (08:44)
[2017-01-01] MEDS: ATORVASTATIN CALCIUM 40 MG TAB PO SCH (08:44)
[2017-01-01] MEDS: MULTIVITAMINS 1 EACH TAB PO SCH (08:44)
[2017-01-01] MEDS: morphINE SR 15 MG TAB PO SCH (08:44)
[2017-01-01] MEDS: METOPROLOL TARTRATE 25 MG TAB PO SCH ×2 (08:44→20:28)
[2017-01-01] MEDS: DEXAMETHASONE 4 MG TAB PO SCH (08:45)
[2017-01-01] MEDS: TAMSULOSIN HCL 0.4 MG CAP PO SCH ×2 (08:45→20:21)
[2017-01-01] MEDS: PANTOPRAZOLE SODIUM 40 MG TAB PO SCH ×2 (08:45→20:22)
[2017-01-01] MEDS: POTASSIUM CL 20 MEQ TAB PO SCH (08:45)
[2017-01-01] MEDS: FENOFIBRATE MICRONIZED 134 MG PO SCH (08:49)
[2017-01-01] MEDS: INSULIN LISPRO 100 UNIT/ML SC SCH ×3 (08:49→18:46)
[2017-01-01] MEDS ORDERED: HYDROmorphONE/DILAUDID 2 MG TAB PO PRN (12:21)
[2017-01-01] MEDS ORDERED: BISACODYL 10 MG SUPP PR PRN (12:24)
[2017-01-01] MEDS ORDERED: MAGNESIUM HYDROXIDE 30 ML UDCUP PO PRN (12:24)
[2017-01-01] MEDS ORDERED: LACTULOSE 20 GM/30 ML UDCUP PO PRN (12:24)
[2017-01-01] MEDS ORDERED: POLYETHYLENE GLYCOL 3350 17 GM PKT PO PRN (12:24)
[2017-01-01] MEDS ORDERED: fentaNYL 25 MCG PATCH TD SCH (12:30)
[2017-01-01] MEDS ORDERED: fentaNYL 100 MCG PATCH TD SCH (12:30)
[2017-01-01] MEDS ORDERED: METHYLNALTREXONE BROMIDE 12 MG/0.6 ML INJ SC ONE (12:56)
[2017-01-01] MEDS: predniSONE 20 MG TAB PO SCH (13:19)
[2017-01-01] MEDS: AMOXICILLIN/CLAVULANATE POT 875/125 MG TAB PO SCH ×2 (13:29→20:21)
--- NOTE | 2017-01-01 14:50 | HOSPPROG ---
Hospitalist Progress Note Assessment/Plan: * Metastatic lung cancer - non-small cell * Acute back pain - musculoskeletal due to fall vs. 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 Dilaudid works better than morphine, but doesn't last very long Objective: Vital Signs Temp Pulse Resp BP Pulse Ox 36.3 C 66 16 138/82 H 93 01/01/17 07:35 01/01/17 08:44 01/01/17 07:35 01/01/17 08:44 01/01/17 07:35 12/31/16 01/01/17 01/02/17 05:59 05:59 05:59 Intake Total 400 Balance 400 CXR viewed, my personal interpretation is - mass with PNA vs. Atelectasis Lumbar MRI - spine mets - Physical Exam Constitutional: no apparent distress, appears nourished, not in pain Cardiovascular: regular rate and rhythym, no murmur, rub, or gallop Respiratory: no respiratory distress, no rales or rhonchi, clear to auscultation Gastrointestinal: normoactive bowel sounds, soft, non-tender abdomen, no palpable masses Skin: no rashes or abrasions, no fluctuance, no induration Neurologic: AAOx3, sensation intact bilaterally Psychiatric: interacting appropriately, not anxious, not encephalopathic, thought process linear ICD10 Worksheet Patient Problems: Problems Problem Status Onset Back pain Acute Lung cancer Acute
--- NOTE | 2017-01-01 15:24 | ASMTCMCOM ---
CM Note CM Note Notes: Met with pt and dtr to discuss DC needs. Pt does not need home care but would welcome a palliative care referral. Faxed referral to [facility]. They will let [facility] know if they can take pt. Date Signed: 01/01/2017 03:23 PM Electronically Signed By:Marlee Vail LCSW
[2017-01-01] MEDS: HYDROmorphONE/DILAUDID 2 MG TAB PO PRN ×2 (17:38→22:23)
[2017-01-01] MEDS: GLIMEPIRIDE 2 MG TAB PO SCH (20:20)
[2017-01-01] MEDS: RIVAROXABAN 20 MG TAB PO SCH (20:22)
[2017-01-01] MEDS: ZOLPIDEM TARTRATE 5 MG TAB PO PRN (22:22)
[2017-01-02] MEDS: HYDROmorphONE/DILAUDID 1 MG/ML INJ IVP PRN ×4 (00:57→16:45)
[2017-01-02] MEDS: HYDROmorphONE/DILAUDID 2 MG TAB PO PRN ×6 (01:50→22:00)
[2017-01-02 05:52] LABS: % IMMATURE GRANULYOCYTES 0.5 % (0.0-1.1); ABSOLUTE IMMATURE GRANULOCYTES 0.05 10^3/uL (0.00-0.10); ADD DIFF? NO; ADD MORPH? NO; ADD SCAN? NO; ATYPICAL LYMPHOCYTE FLAG 20 (0-99); FRAGMENT RBC FLAG 20 (0-99); HEMATOCRIT 35.9 % (40.0-51.0); HEMOGLOBIN 11.8 g/dL (13.7-17.5); LEFT SHIFT FLG 0 (0-99); LIPEMIA HEMOLYSIS FLAG 80 (0-99); MEAN CELL HEMOGLOBIN 28.9 pg (27.9-34.1); MEAN CELL HEMOGLOBIN CONCENTR. 32.9 g/dL (32.4-36.7); MEAN CELL VOLUME 87.8 fL (81.5-99.8); MEAN PLATELET VOLUME 10.6 fL (8.7-11.7); PLATELET CLUMPS FLAG 0 (0-99); PLATELET COUNT 351 10^3/uL (150-400); RED BLOOD CELL COUNT 4.09 10^6/uL (4.40-6.38); RED CELL DISTRIBUTION WIDTH 17.3 % (11.5-15.2)
[2017-01-02 06:11] LABS: ALANINE AMINOTRANSFERASE 202 IU/L (21-72); ALBUMIN 3.1 g/dL (3.5-5.0); ALKALINE PHOSPHATASE 220 IU/L (38-126); ANION GAP 14 mEq/L (8-16); ASPARTATE AMINOTRANSFERASE 78 IU/L (17-59); BILIRUBIN,TOTAL 0.7 mg/dL (0.1-1.4); BILIRUBIN-CONJUGATED 0.6 mg/dL (0.0-0.5); BILIRUBIN-UNCONJUGATED 0.1 mg/dL (0.0-1.1); CARBON DIOXIDE 20 mEq/l (22-31); CHLORIDE 99 mEq/L (97-110); CREATININE 0.6 mg/dL (0.7-1.3); GLOMERULAR FILTRATION RATE > 60; GLUCOSE 324 mg/dL (70-100); POTASSIUM 4.1 mEq/L (3.5-5.2); SODIUM 133 mEq/L (134-144); TOTAL PROTEIN 5.9 g/dL (6.3-8.2)
[2017-01-02] MEDS: AMOXICILLIN/CLAVULANATE POT 875/125 MG TAB PO SCH ×2 (09:31→22:01)
[2017-01-02] MEDS: SERTRALINE HCL 100 MG TAB PO SCH (09:31)
[2017-01-02] MEDS: ATORVASTATIN CALCIUM 40 MG TAB PO SCH (09:32)
[2017-01-02] MEDS: POTASSIUM CL 20 MEQ TAB PO SCH (09:32)
[2017-01-02] MEDS: GABAPENTIN 400 MG CAP PO SCH (09:32)
[2017-01-02] MEDS: MULTIVITAMINS 1 EACH TAB PO SCH (09:37)
[2017-01-02] MEDS: TAMSULOSIN HCL 0.4 MG CAP PO SCH ×2 (09:37→21:59)
[2017-01-02] MEDS: METOPROLOL TARTRATE 25 MG TAB PO SCH ×2 (09:38→22:01)
[2017-01-02] MEDS: predniSONE 20 MG TAB PO SCH (09:38)
[2017-01-02] MEDS: PANTOPRAZOLE SODIUM 40 MG TAB PO SCH ×2 (09:39→21:58)
[2017-01-02] MEDS: INSULIN LISPRO 100 UNIT/ML SC SCH ×3 (09:42→18:44)
[2017-01-02] MEDS: FENOFIBRATE MICRONIZED 134 MG PO SCH (09:42)
[2017-01-02] MEDS ORDERED: GABAPENTIN 400 MG CAP PO SCH (12:10)
[2017-01-02] MEDS ORDERED: fentaNYL 25 MCG PATCH TD SCH (12:10)
--- NOTE | 2017-01-02 12:13 | HOSPPROG ---
Hospitalist Progress Note Assessment/Plan: * Metastatic lung cancer - non-small cell * Acute back pain - musculoskeletal due to fall vs. mets -per neurosurgery no evidence for nerve compression -no benefit to AN -inpatient XRT -increase Fentanyl again today. Increase Neurontin * Hemoptysis - more c/w bloody sputum. ?Bronchitis. 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 His biggest complaint at this time is pain mgmt and this will be addressed per above. Subjective: Lots of low back pain with Neuropathy. First encounter with this patient Objective: Vital Signs Temp Pulse Resp BP Pulse Ox 36.8 C 71 17 136/75 H 94 01/02/17 08:24 01/02/17 09:45 01/02/17 08:24 01/02/17 09:38 01/02/17 09:45 Microbiology 01/01/17 16:17 - Final Sputum, Expectorated Laboratory Results 01/02/17 04:56 01/02/17 04:56 01/01/17 01/02/17 01/03/17 05:59 05:59 05:59 Intake Total 400 800 Balance 400 800 - Physical Exam Constitutional: no apparent distress Eyes: PERRL Ears, Nose, Mouth, Throat: moist mucous membranes, hearing normal Cardiovascular: regular rate and rhythym, No edema Respiratory: no respiratory distress, reduced air movement Gastrointestinal: normoactive bowel sounds, soft, non-tender abdomen Musculoskeletal: generalized weakness Neurologic: AAOx3 Psychiatric: interacting appropriately, not anxious, not encephalopathic ICD10 Worksheet Patient Problems: Problems Problem Status Onset Back pain Acute Lung cancer Acute
[2017-01-02] MEDS ORDERED: fentaNYL 100 MCG PATCH TD SCH (13:00)
[2017-01-02] MEDS: GABAPENTIN 300 MG CAP PO SCH ×2 (14:55→21:58)
[2017-01-02] MEDS: RIVAROXABAN 20 MG TAB PO SCH (21:58)
[2017-01-02] MEDS: GLIMEPIRIDE 2 MG TAB PO SCH (22:01)
[2017-01-02] MEDS: LORazepam 2 MG/ML INJ IVP PRN (22:05)
[2017-01-02] MEDS: ZOLPIDEM TARTRATE 5 MG TAB PO PRN (22:10)
[2017-01-03] MEDS: HYDROmorphONE/DILAUDID 2 MG TAB PO PRN ×3 (04:48→18:38)
[2017-01-03] MEDS: predniSONE 20 MG TAB PO SCH (09:27)
[2017-01-03] MEDS: MULTIVITAMINS 1 EACH TAB PO SCH (09:27)
[2017-01-03] MEDS: AMOXICILLIN/CLAVULANATE POT 875/125 MG TAB PO SCH ×2 (09:27→20:50)
[2017-01-03] MEDS: PROCHLORPERAZINE MALEATE 10 MG TAB PO PRN (09:27)
[2017-01-03] MEDS: POTASSIUM CL 20 MEQ TAB PO SCH (09:27)
[2017-01-03] MEDS: GABAPENTIN 300 MG CAP PO SCH ×3 (09:28→20:50)
[2017-01-03] MEDS: SERTRALINE HCL 100 MG TAB PO SCH (09:28)
[2017-01-03] MEDS: PANTOPRAZOLE SODIUM 40 MG TAB PO SCH ×2 (09:28→20:49)
[2017-01-03] MEDS: TAMSULOSIN HCL 0.4 MG CAP PO SCH ×2 (09:28→20:50)
[2017-01-03] MEDS: ATORVASTATIN CALCIUM 40 MG TAB PO SCH (09:29)
[2017-01-03] MEDS: INSULIN LISPRO 100 UNIT/ML SC SCH ×2 (09:33→12:20)
[2017-01-03] MEDS: FENOFIBRATE MICRONIZED 134 MG PO SCH (09:36)
[2017-01-03] MEDS: METOPROLOL TARTRATE 25 MG TAB PO SCH ×2 (09:49→20:49)
[2017-01-03] MEDS: HYDROmorphONE/DILAUDID 1 MG/ML INJ IVP PRN ×2 (10:15→20:47)
--- NOTE | 2017-01-03 10:15 | HOSPPROG ---
Hospitalist Progress Note Assessment/Plan: 66 yo male with met lung cancer admitted for acute on chronic low back pain. MRI c/w mets to Lumbar spine but no e/o of nerve impingement. No need for Neurosurgical intervention. Managing with pain meds as well as radiation per Radiation Onc as it is possibly that some of the tumor burden is contributing. * Metastatic lung cancer - non-small cell * Acute back pain - musculoskeletal due to fall vs. mets -per neurosurgery no evidence for nerve compression -no benefit to AN -inpatient XRT, has session today, M/T/W -Prednisone Taper -Continue Fentanyl, increase Neurontin again today which he is tolerating well * Hemoptysis/Bronchitis. Has improved on Augmentin. 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 Labile BG. Cont with ISS and oral meds. Would hold off on starting long acting insulin at this time. Dispo: cont with XRT, will d/c to home next week with home palliative care Subjective: slept well. Stil with back pain. somewhat better controlled. Objective: Vital Signs Temp Pulse Resp BP Pulse Ox 37.0 C 57 L 18 122/82 H 95 01/03/17 08:23 01/03/17 08:23 01/03/17 08:23 01/03/17 08:23 01/03/17 08:23 Microbiology 01/01/17 16:17 - Final Sputum, Expectorated Laboratory Results 01/02/17 04:56 01/02/17 04:56 01/02/17 01/03/17 01/04/17 05:59 05:59 05:59 Intake Total 800 2100 Balance 800 2100 - Physical Exam Constitutional: no apparent distress, appears nourished, not in pain Eyes: PERRL, anicteric sclera, EOMI Ears, Nose, Mouth, Throat: moist mucous membranes, hearing normal, ears appear normal, no oral mucosal ulcers Cardiovascular: regular rate and rhythym, no murmur, rub, or gallop Respiratory: no respiratory distress, no rales or rhonchi, reduced air movement Skin: warm Musculoskeletal: generalized weakness Neurologic: AAOx3 Psychiatric: interacting appropriately, not anxious, not encephalopathic ICD10 Worksheet Patient Problems: Problems Problem Status Onset Back pain Acute Lung cancer Acute
[2017-01-03] MEDS ORDERED: PARAMETERS MISC PRN (14:36)
[2017-01-03] MEDS ORDERED: D50W 25 GM/50 ML SYR IVP PRN (14:36)
--- NOTE | 2017-01-03 16:34 | ASMTCMCOM ---
CM Note CM Note Notes: Pt still having pain so will not DC today. Litoselena would like to meet with pt and tomorrow while at [facility]. suggested noon. Yamil will contact with best time. Date Signed: 01/03/2017 04:33 PM Electronically Signed By:Marlee Vail LCSW
[2017-01-03] MEDS: INSULIN LISPRO 100 UNIT/1 ML VIAL STANDARD SC SCH (18:53)
[2017-01-03] MEDS ORDERED: OXYMETAZOLINE 30 ML NASAL SPRAY EACHNARE PRN (19:40)
[2017-01-03] MEDS: GLIMEPIRIDE 2 MG TAB PO SCH (20:50)
[2017-01-03] MEDS: RIVAROXABAN 20 MG TAB PO SCH (20:50)
[2017-01-04] MEDS: HYDROmorphONE/DILAUDID 2 MG TAB PO PRN ×5 (00:20→21:47)
[2017-01-04] MEDS: ZOLPIDEM TARTRATE 5 MG TAB PO PRN ×2 (00:20→23:01)
[2017-01-04] MEDS: HYDROmorphONE/DILAUDID 1 MG/ML INJ IVP PRN (01:20)
[2017-01-04] MEDS: predniSONE 20 MG TAB PO SCH (09:13)
[2017-01-04] MEDS: GABAPENTIN 300 MG CAP PO SCH ×4 (09:13→21:50)
[2017-01-04] MEDS: AMOXICILLIN/CLAVULANATE POT 875/125 MG TAB PO SCH ×2 (09:14→21:49)
[2017-01-04] MEDS: SERTRALINE HCL 100 MG TAB PO SCH (09:14)
[2017-01-04] MEDS: MULTIVITAMINS 1 EACH TAB PO SCH (09:14)
[2017-01-04] MEDS: POTASSIUM CL 20 MEQ TAB PO SCH (09:15)
[2017-01-04] MEDS: METOPROLOL TARTRATE 25 MG TAB PO SCH ×2 (09:15→21:52)
[2017-01-04] MEDS: TAMSULOSIN HCL 0.4 MG CAP PO SCH ×2 (09:15→21:55)
[2017-01-04] MEDS: PANTOPRAZOLE SODIUM 40 MG TAB PO SCH ×2 (09:17→21:55)
[2017-01-04] MEDS: ATORVASTATIN CALCIUM 40 MG TAB PO SCH (09:17)
[2017-01-04] MEDS: FENOFIBRATE MICRONIZED 134 MG PO SCH (09:20)
[2017-01-04] MEDS: INSULIN LISPRO 100 UNIT/1 ML VIAL STANDARD SC SCH ×2 (10:46→12:53)
--- NOTE | 2017-01-04 14:14 | HOSPPROG ---
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 -Increase prn po Dilaudid. His fentanyl patch also been increased twice in the last week. -MoM for constipation. Changed stool softener from prn to scheduled. -Continue to ambulate. -Pt met w/ Palliative home health service today. Subj: c/o continued pain. Obj: Gen: middle aged overweight M, NAD, alert, ambulating. HEENT: EOMI, MMM. Resp: CTAB no RRW. CV: S1/S2 RRR no MRG. Abd: SND. Extrem: no periph edema. MSK: nl gait. This pt is new to me, reviewed chart/records. Objective: Vital Signs Temp Pulse Resp BP Pulse Ox 36.9 C 61 18 119/79 91 L 01/04/17 07:43 01/04/17 09:15 01/04/17 07:43 01/04/17 09:16 01/04/17 07:43 Microbiology 01/01/17 16:17 - Final Sputum, Expectorated Sputum Culture - Final Strep Agalactiae Group B Laboratory Results 01/02/17 04:56 01/02/17 04:56 01/03/17 01/04/17 01/05/17 05:59 05:59 05:59 Intake Total 2100 900 Output Total 600 Balance 2100 300 ICD10 Worksheet Patient Problems: Problems Problem Status Onset Back pain Acute Lung cancer Acute
[2017-01-04] MEDS: INSULIN LISPRO 100 UNIT/1 ML VIAL HIGH SC SCH (18:40)
[2017-01-04] MEDS: SENNOSIDES/DOCUSATE SODIUM TAB PO SCH (21:52)
[2017-01-04] MEDS: RIVAROXABAN 20 MG TAB PO SCH (21:55)
[2017-01-04] MEDS: GLIMEPIRIDE 2 MG TAB PO SCH (21:56)
[2017-01-04] MEDS: LORazepam 2 MG/ML INJ IVP PRN (23:01)
[2017-01-05] MEDS: HYDROmorphONE/DILAUDID 2 MG TAB PO PRN ×4 (04:03→20:53)
[2017-01-05] MEDS ORDERED: fentaNYL 25 MCG PATCH TD SCH (08:00)
[2017-01-05] MEDS: HYDROmorphONE/DILAUDID 1 MG/ML INJ IVP PRN ×2 (09:12→12:06)
[2017-01-05] MEDS ORDERED: predniSONE 20 MG TAB PO SCH (09:44)
[2017-01-05] MEDS: GABAPENTIN 300 MG CAP PO SCH ×3 (09:59→20:51)
[2017-01-05] MEDS: METOPROLOL TARTRATE 25 MG TAB PO SCH ×2 (09:59→20:51)
[2017-01-05] MEDS: AMOXICILLIN/CLAVULANATE POT 875/125 MG TAB PO SCH ×2 (09:59→20:51)
[2017-01-05] MEDS: ATORVASTATIN CALCIUM 40 MG TAB PO SCH (09:59)
[2017-01-05] MEDS: TAMSULOSIN HCL 0.4 MG CAP PO SCH ×2 (09:59→20:52)
[2017-01-05] MEDS: SERTRALINE HCL 100 MG TAB PO SCH (10:00)
[2017-01-05] MEDS: PANTOPRAZOLE SODIUM 40 MG TAB PO SCH ×2 (10:01→20:52)
[2017-01-05] MEDS: POTASSIUM CL 20 MEQ TAB PO SCH (10:01)
[2017-01-05] MEDS: MULTIVITAMINS 1 EACH TAB PO SCH (10:01)
[2017-01-05] MEDS: SENNOSIDES/DOCUSATE SODIUM TAB PO SCH ×2 (10:02→20:50)
[2017-01-05] MEDS: INSULIN LISPRO 100 UNIT/1 ML VIAL HIGH SC SCH ×3 (11:12→17:49)
[2017-01-05] MEDS: FENOFIBRATE MICRONIZED 134 MG PO SCH (11:14)
[2017-01-05] MEDS: fentaNYL 100 MCG PATCH TD SCH (11:16)
[2017-01-05] MEDS: fentaNYL 50 MCG PATCH TD SCH (11:17)
[2017-01-05] MEDS: predniSONE 10 MG TAB PO SCH (12:07)
[2017-01-05] MEDS: predniSONE 20 MG TAB PO SCH (12:19)
[2017-01-05] MEDS: RIVAROXABAN 20 MG TAB PO SCH (20:51)
[2017-01-05] MEDS: GLIMEPIRIDE 2 MG TAB PO SCH (20:52)
[2017-01-05] MEDS: ZOLPIDEM TARTRATE 5 MG TAB PO PRN (20:59)
--- NOTE | 2017-01-05 22:06 | HOSPPROG ---
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 -Increased prn po Dilaudid. His fentanyl patch also been increased twice in the last week. -Increased gabapentin dose yesterday. -Bowel protocol. -Continue to ambulate. -Getting XRT MTW and then he is done. -US revealed no mass in his back, recent CT also showed no mass in the back- it is likely muscle swelling. Dispo: consider to DC to home when pain is adequately controlled. Subj: c/o continued back pain. He c/o lump in R back which was not present before. Obj: Gen: middle aged overweight M, NAD, alert, ambulating. HEENT: EOMI, MMM. Resp: CTAB no RRW. CV: S1/S2 RRR no MRG. Abd: SND. Extrem: no periph edema. MSK: nl gait. Objective: Vital Signs Temp Pulse Resp BP Pulse Ox 37.0 C 65 18 107/73 94 01/05/17 20:52 01/05/17 20:52 01/05/17 20:52 01/05/17 20:52 01/05/17 20:52 Laboratory Results 01/02/17 04:56 01/02/17 04:56 01/04/17 01/05/17 01/06/17 05:59 05:59 05:59 Intake Total 900 850 Output Total 600 Balance 300 850 ICD10 Worksheet Patient Problems: Problems Problem Status Onset Back pain Acute Lung cancer Acute
[2017-01-06] MEDS: HYDROmorphONE/DILAUDID 2 MG TAB PO PRN ×4 (00:16→13:10)
[2017-01-06] MEDS ORDERED: fentaNYL 25 MCG PATCH TD SCH (08:00)
[2017-01-06] MEDS: predniSONE 10 MG TAB PO SCH (08:47)
[2017-01-06] MEDS: TAMSULOSIN HCL 0.4 MG CAP PO SCH ×2 (08:47→21:15)
[2017-01-06] MEDS: PANTOPRAZOLE SODIUM 40 MG TAB PO SCH ×2 (08:47→21:15)
[2017-01-06] MEDS: ATORVASTATIN CALCIUM 40 MG TAB PO SCH (08:47)
[2017-01-06] MEDS: MULTIVITAMINS 1 EACH TAB PO SCH (08:47)
[2017-01-06] MEDS: POTASSIUM CL 20 MEQ TAB PO SCH (08:48)
[2017-01-06] MEDS: GABAPENTIN 300 MG CAP PO SCH ×3 (08:48→21:13)
[2017-01-06] MEDS: SERTRALINE HCL 100 MG TAB PO SCH (08:48)
[2017-01-06] MEDS: METOPROLOL TARTRATE 25 MG TAB PO SCH ×2 (08:48→21:10)
[2017-01-06] MEDS: AMOXICILLIN/CLAVULANATE POT 875/125 MG TAB PO SCH ×2 (08:48→21:13)
[2017-01-06] MEDS: SENNOSIDES/DOCUSATE SODIUM TAB PO SCH ×2 (08:49→21:12)
[2017-01-06] MEDS: FENOFIBRATE MICRONIZED 134 MG PO SCH (08:52)
[2017-01-06] MEDS: INSULIN LISPRO 100 UNIT/1 ML VIAL HIGH SC SCH ×3 (08:54→17:46)
--- NOTE | 2017-01-06 12:37 | ASMTCMCOM ---
CM Note CM Note Notes: Met with patient for support and explore needs for discharge. Patient surrounded by many family members including a sister here from [facility]. Patient states he continues to have significant pain even with radiation. He also states he feels very tired and fatigued with his treatment. Supported him to say to all his visitors that he needs to rest when he feels it necessary. C/M will continue to follow. Date Signed: 01/06/2017 12:37 PM Electronically Signed By:CARINA Britt
--- NOTE | 2017-01-06 16:36 | HOSPPROG ---
Hospitalist Progress Note Assessment/Plan: DIAGNOSES: -Acute bilateral Sciatica, uncertain etiology/mechanism with no cause identified on MRI -Pain of Malignancy, with metastatic lesions in spine causing lumbar back pain but no neural impingement -Metastatic Lung Cancer At present he has had 3 of 5 Radiation treatments to spine, with beginnings of some improvement of his lumbar pain. I do not necessarily expect this to help his sciatica, and he may need to try chiropractic or other types of therapy for that as he feels the narcotics make him too sleepy, and he is already on gabapentin. PLANS: finish his course or radiation treatments here dc to home after that will review further w Doctor Will and Nsurg SUBJECTIVE: still w unchanged bilateral sciatic is able to ambulate some decrease in lumbar back pain OBJECTIVE: vitals stable without fever exam: alert oriented relaxed skin warm dry good color resps normal lungs clear heart reg no weakness in legs US done yesterday with no abnormality identified Objective: Vital Signs Temp Pulse Resp BP Pulse Ox 36.8 C 72 16 103/62 92 01/06/17 15:07 01/06/17 15:07 01/06/17 15:07 01/06/17 15:07 01/06/17 15:07 Laboratory Results 01/02/17 04:56 01/02/17 04:56 01/05/17 01/06/17 01/07/17 06:59 06:59 06:59 Intake Total 162 995 1625 Balance 415 968 3021 ICD10 Worksheet Patient Problems: Problems Problem Status Onset Back pain Acute Lung cancer Acute
[2017-01-06] MEDS: RIVAROXABAN 20 MG TAB PO SCH (21:11)
[2017-01-06] MEDS: ZOLPIDEM TARTRATE 5 MG TAB PO PRN (21:14)
[2017-01-06] MEDS: GLIMEPIRIDE 2 MG TAB PO SCH (21:15)
[2017-01-06] MEDS ORDERED: HYDROmorphONE/DILAUDID 2 MG/ML INJ IVP PRN (22:00)
[2017-01-07] MEDS: HYDROmorphONE/DILAUDID 2 MG TAB PO PRN ×2 (04:04→07:57)
[2017-01-07] MEDS: METOPROLOL TARTRATE 25 MG TAB PO SCH ×2 (08:27→20:28)
[2017-01-07] MEDS: predniSONE 10 MG TAB PO SCH (08:27)
[2017-01-07] MEDS: SERTRALINE HCL 100 MG TAB PO SCH (08:33)
[2017-01-07] MEDS: TAMSULOSIN HCL 0.4 MG CAP PO SCH ×2 (08:35→20:24)
[2017-01-07] MEDS: PANTOPRAZOLE SODIUM 40 MG TAB PO SCH ×2 (08:35→20:23)
[2017-01-07] MEDS: POTASSIUM CL 20 MEQ TAB PO SCH (08:36)
[2017-01-07] MEDS: GABAPENTIN 300 MG CAP PO SCH ×3 (08:36→21:17)
[2017-01-07] MEDS: SENNOSIDES/DOCUSATE SODIUM TAB PO SCH ×2 (08:37→20:24)
[2017-01-07] MEDS: ATORVASTATIN CALCIUM 40 MG TAB PO SCH (08:37)
[2017-01-07] MEDS: AMOXICILLIN/CLAVULANATE POT 875/125 MG TAB PO SCH ×2 (08:37→20:25)
[2017-01-07] MEDS: MULTIVITAMINS 1 EACH TAB PO SCH (08:37)
[2017-01-07] MEDS: FENOFIBRATE MICRONIZED 134 MG PO SCH (08:41)
[2017-01-07] MEDS: INSULIN LISPRO 100 UNIT/1 ML VIAL HIGH SC SCH ×3 (08:54→19:31)
[2017-01-07] MEDS ORDERED: FLUCONAZOLE 150 MG TAB PO ONE (10:56)
[2017-01-07] MEDS: MICONAZOLE NITRATE 28 GM CRTUBE TP SCH ×2 (12:29→20:29)
[2017-01-07] MEDS: ACETAMINOPHEN 500 MG TAB PO SCH ×2 (16:40→21:17)
--- NOTE | 2017-01-07 17:44 | HOSPPROG ---
Hospitalist Progress Note Assessment/Plan: DIAGNOSES: -Acute bilateral Sciatica, uncertain etiology/mechanism with no cause identified on MRI. States he fell onto buttock before onset of sciatic, ? if he may have nerve contusion or piriformis syndrome, though likelihood of bilateral sciatica of that mechanism seems very low. -Pain of Malignancy, with metastatic lesions in spine causing lumbar back pain but no neural impingement -Metastatic Lung Cancer At present he has had 4 of 5 Radiation treatments to spine, with beginnings of some improvement of his lumbar pain. I do not necessarily expect this to help his sciatica, and he may need to try chiropractic or other types of therapy for that as he feels the narcotics make him too sleepy, and he is already on gabapentin. PLANS: finish his course or radiation treatments here if no improvement in pain will review w neurology SUBJECTIVE: still w unchanged bilateral sciatic pain and today lumbar pain unchanged is able to ambulate OBJECTIVE: vitals stable without fever exam: alert oriented relaxed skin warm dry good color resps normal lungs clear heart reg no weakness in legs Objective: Vital Signs Temp Pulse Resp BP Pulse Ox 36.8 C 65 18 108/55 L 95 01/07/17 16:00 01/07/17 16:00 01/07/17 16:00 01/07/17 16:00 01/07/17 16:00 Laboratory Results 01/02/17 04:56 01/02/17 04:56 01/06/17 01/07/17 01/08/17 06:59 06:59 06:59 Intake Total 650 2600 Output Total 650 Balance 650 2600 -650 ICD10 Worksheet Patient Problems: Problems Problem Status Onset Back pain Acute Lung cancer Acute
[2017-01-07] MEDS: RIVAROXABAN 20 MG TAB PO SCH (20:23)
[2017-01-07] MEDS: GLIMEPIRIDE 2 MG TAB PO SCH (20:24)
[2017-01-07] MEDS: ZOLPIDEM TARTRATE 5 MG TAB PO PRN (21:18)
[2017-01-08 03:09] VITALS: RESP 16
[2017-01-08] MEDS: ACETAMINOPHEN 500 MG TAB PO SCH ×2 (05:14→13:42)
[2017-01-08] MEDS: INSULIN LISPRO 100 UNIT/1 ML VIAL HIGH SC SCH ×2 (07:39→11:52)
[2017-01-08 08:16] VITALS: BP 118/79; PULSE 79; TEMP 98.4; O2SAT 96
[2017-01-08] MEDS: POTASSIUM CL 20 MEQ TAB PO SCH (08:45)
[2017-01-08] MEDS: SERTRALINE HCL 100 MG TAB PO SCH (08:46)
[2017-01-08] MEDS: TAMSULOSIN HCL 0.4 MG CAP PO SCH (08:47)
[2017-01-08] MEDS: METOPROLOL TARTRATE 25 MG TAB PO SCH (08:47)
[2017-01-08] MEDS: AMOXICILLIN/CLAVULANATE POT 875/125 MG TAB PO SCH (08:49)
[2017-01-08] MEDS: ATORVASTATIN CALCIUM 40 MG TAB PO SCH (08:49)
[2017-01-08] MEDS: GABAPENTIN 300 MG CAP PO SCH (08:50)
[2017-01-08] MEDS: PANTOPRAZOLE SODIUM 40 MG TAB PO SCH (08:50)
[2017-01-08] MEDS: MULTIVITAMINS 1 EACH TAB PO SCH (08:51)
[2017-01-08] MEDS: predniSONE 10 MG TAB PO SCH (08:51)
[2017-01-08] MEDS: FENOFIBRATE MICRONIZED 134 MG PO SCH (08:53)
[2017-01-08] MEDS: fentaNYL 100 MCG PATCH TD SCH (08:54)
[2017-01-08] MEDS: fentaNYL 50 MCG PATCH TD SCH (08:55)
[2017-01-08] MEDS: HYDROmorphONE/DILAUDID 2 MG TAB PO PRN ×2 (09:36→12:21)
[2017-01-08] MEDS: SENNOSIDES/DOCUSATE SODIUM TAB PO SCH (09:48)
[2017-01-08] MEDS: PROCHLORPERAZINE MALEATE 10 MG TAB PO PRN (12:21)
[2017-01-08] MEDS ORDERED: HYDROmorphONE/DILAUDID 2 MG/ML INJ IVP PRN (14:29)
--- NOTE | 2017-01-08 14:54 | PDDCSUM ---
Discharge Summary Discharge Summary: DISCHARGE DIAGNOSES: -Acute bilateral Sciatica, uncertain etiology/mechanism with no cause identified on MRI. States he fell onto buttock before onset of sciatic, ? if he may have nerve contusion or piriformis syndrome, though likelihood of bilateral sciatica of that mechanism seems very low. -Pain of Malignancy, with metastatic lesions in spine causing lumbar back pain but no neural impingement -Metastatic Lung Cancer CONSULTANTS: Neurosurgery PROCEDURES: MRI of lumbar spine showing advancing metastatic disease to the vertebral bodies but nothing impinging on the neural structures HOSPITAL COURSE SUMMARY: This patient with known metastatic lung cancer to the lumbar spine came in with primarily increasing bilateral sciatic distribution pain without the loss of sensation or bowel or bladder function. There was also some increase in lumbar pain. MRI was done and showed some increase in the burden of lumbar vertebral body disease but there was no neural impingement, canal stenosis, or other explanation for his sciatica pain per se. The patient did have a fall landing on his buttock on the day of increase pain in the sciatic distribution, which was 3 or 4 days before admission. It is considered possible that he may have had some neural contusion with that fall. During this hospital admission he had an increase in his narcotic dosing which was helpful with his pain but he still does have pain. We tried lidocaine patches which were not terribly helpful. We did increase also his dose of Neurontin to a current total of 1200 mg three times daily. For his metastatic disease he was evaluated by the radiation oncology service in did begin radiation treatment. He completed a 5 dose course of radiation therapy to the lumbar spine here in the hospital. At this time he still has pain but it is improving notably. He is up ambulating without walker and not falling or having balance problems. He is eating well. There are no fevers. He is felt safe for discharge to home. PENDING TEST RESULTS: None MEDICATION CHANGES: Increase in fentanyl patch to 150 mcg Changed from oxycodone to oral Dilaudid for pain management with breakthrough FOLLOW-UP PLAN: He will have an appointment for follow-up with Dr. Solis later this week or early next week Greater than 35 minutes bedside and care coordination time today
[2017-01-08] MEDS: MICONAZOLE NITRATE 28 GM CRTUBE TP SCH (15:55)
--- NOTE | 2017-01-08 16:04 | ASMTCMCOM ---
CM Note CM Note Notes: Pt is discharging home today with [facility]. Notified Linda and sent d/c med list. D/c summary not available yet. Date Signed: 01/08/2017 04:03 PM Electronically Signed By:CARINA Bar
--- NOTE | 2017-01-08 16:11 | ASDISCHSUM ---
Discharge Information Plan Status:Has needs-TBD Medically Cleared to Leave:01/08/2017 Discharge Date:01/08/2017 03:55 PM CM D/C Disposition:Home, Routine, Self-Care ADT D/C Disposition:Home, Routine, Self-Care Projected Discharge Date:01/03/2017 12:00 AM Transportation at D/C:Family Discharge Delay Reason: Follow-Up Date:01/03/2017 12:00 AM Discharge Slot: Final Diagnosis: Placement Information Referral Type:*Hospice Referral ID:[id number] Provider Name:[facility] Address 1:[address] Phone Number: Address 2: Fax Number: City:[place] Selection Factors: State:[place] Patient Contact Information Contact Name:SHASHANKEVONELAINE Relationship: Address:[address] Work Phone: City:[facility] Phone: State/Zip Code:[place] [address] Email: Financial Information Financial Class: Primary Plan Desc:[employer] [place] Primary Plan Number:[id number] Secondary Plan Desc: Secondary Plan Number: Assessment Information [facility] Initial CM Assessment Living Arrangements What is your living Answers: With Spouse arrangement? Who do you live with? Type Of Residence What kind of residence do Answers: House you live in? Case Management Evaluation Functional: Able to Answers: No Notes: Pain in back return Home with Prior Level of Function/Care Functional: ADL / IADL Answers: Mobility Issues Performance Deficits Due to: Psychosocial Needs: Answers: Terminal Illness Education Needs Answers: Disease Teaching Discharge Plan Comments Coordination Status Comments Notes: Met with patient, spouse and son to discuss possible d/c needs. Patient says that he is unsure what the plan ahead is since he had a reaction to his cancer treatment at the beginning of his third. curt. of a trial medication. He reports having been diagnosed in August following some back pain. Asked patient about needs they might have while here and they said if they are in the hospital vety long they would appreciate a film processing shift supervisor coming to see them. case management will continue to follow. Date Signed: 12/31/2016 01:11 PM Electronically Signed By:CARINA Britt [facility] CM Progress Note CM Note CM Note Notes: Met with pt and dtr to discuss DC needs. Pt does not need home care but would welcome a palliative care referral. Faxed referral to [facility]. They will let [facility] know if they can take pt. Date Signed: 01/01/2017 03:23 PM Electronically Signed By:Marlee Vail LCSW [facility] CM Progress Note CM Note CM Note Notes: Pt still having pain so will not DC today. Linda would like to meet with pt and tomorrow while at [facility]. suggested noon. Yamil will contact with best time. Date Signed: 01/03/2017 04:33 PM Electronically Signed By:Marlee Vail LCSW [facility] CM Progress Note CM Note CM Note Notes: Met with patient for support and explore needs for discharge. Patient surrounded by many family members including a sister here from [facility]. Patient states he continues to have significant pain even with radiation. He also states he feels very tired and fatigued with his treatment. Supported him to say to all his visitors that he needs to rest when he feels it necessary. C/M will continue to follow. Date Signed: 01/06/2017 12:37 PM Electronically Signed By:CARINA Britt [facility] CM Progress Note CM Note CM Note Notes: Pt is discharging home today with [facility]. Notified Linda and sent d/c med list. D/c summary not available yet. Date Signed: 01/08/2017 04:03 PM Electronically Signed By:CARINA Bar Intervention Information
== END 2017-01-08 15:55 | disposition home or self-care (01) | DRG 552 ==
LOC: F1N 16:31 → OBSVTOIN 12-31 18:09
PROVIDERS: ADMIT Internal Medicine; ATTEND Internal Medicine
DX: M54.31 Sciatica, right side (principal); M54.32 Sciatica, left side; C79.51 Secondary malignant neoplasm of bone; C78.7 Secondary malignant neoplasm of liver and intrahepatic bile duct; M47.816 Spondylosis without myelopathy or radiculopathy, lumbar region; M51.36 Other intervertebral disc degeneration, lumbar region; E11.9 Type 2 diabetes mellitus without complications; I10 Essential (primary) hypertension; E78.00 Pure hypercholesterolemia, unspecified; I48.2 Chronic atrial fibrillation; Z79.01 Long term (current) use of anticoagulants; K75.89 Other specified inflammatory liver diseases; K59.03 Drug induced constipation; T40.2X5A Adverse effect of other opioids, initial encounter; J20.9 Acute bronchitis, unspecified; R73.9 Hyperglycemia, unspecified; T38.0X5A Adverse effect of glucocorticoids and synthetic analogues, initial encounter; Z85.118 Personal history of other malignant neoplasm of bronchus and lung; Z96.651 Presence of right artificial knee joint
CPT/HCPCS: 96374; 97116-GP; 97161-GP; 97166-GO; 97530-GO; 97535-GO; A9585; G0008; G0009; G0378; J1170; J1815; J2060; J2212; J2405

== ENCOUNTER 2017-01-18 22:17 | Inpatient (IN) | payer MEDICAID ==
[2017-01-18] MEDS ORDERED: NS 1,000 ML IV ONE (22:33)
--- NOTE | 2017-01-18 22:33 | EDPHY ---
H & P Stated Complaint: bilat thigh pain/numbness x 24 hrs, s/p chemo 3 d ago HPI/ROS: HPI CHIEF COMPLAINT: Back pain, leg pain, numbness and tingling in his legs, leg weakness times 24 hours HISTORY OF PRESENT ILLNESS: This patient is 66-year-old male, history of metastatic lung cancer, undergoing chemotherapy. Followed by Dr. Solis. Additionally has significant past medical history for hypertension, hyperlipidemia, diabetes. He presents emergency room with leg numbness and tingling bilaterally, and bilateral leg weakness. With worsening lumbar back pain. Unable to walk. Unable to sit up in bed. He just received chemotherapy 2 days ago. He has had a T-max of a 100.8degrees. No cough no chest pain no shortness of breath. No headache or neck pain. Globally does feel weak. Patient does report that he has metastatic disease to his spine. Past Medical History: Hypertension, hyperlipidemia, diabetes, metastatic lung cancer Past Surgical History: No recent surgery Social History: Denies daily use drugs alcohol tobacco products. Family History: Noncontributory ROS REVIEW OF SYSTEMS: A comprehensive 10 point review of systems is otherwise negative aside from elements mentioned in the history of present illness. Exam Constitutional appears well nontoxic, triage nursing summary reviewed, vital signs reviewed, awake/alert. Eyes normal conjunctivae and sclera, EOMI, PERRLA. HENT normal inspection, atraumatic, moist mucus membranes, no epistaxis, neck supple/ no meningismus, no raccoon eyes. Respiratory clear to auscultation bilaterally, normal breath sounds, no respiratory distress, no wheezing. Cardiovascular rate normal, regular rhythm, no murmur, no edema, distal pulses normal. Gastrointestinal soft, non-tender, no rebound, no guarding, normal bowel sounds, no distension, no pulsatile mass. Genitourinary no CVA tenderness. Musculoskeletal no midline vertebral tenderness, full range of motion, no calf swelling, no tenderness of extremities, no meningismus, good pulses, neurovascularly intact. Neurological exam of his bilateral lower extremities he has bilateral lower extremity weakness. Very difficult to lift both legs off the bed. He complains of numbness and tingling from bilateral knees down. Also distally complains of midline lumbar back pain. No step-offs or crepitus on exam. Skin pink, warm, & dry, no rash, skin atraumatic. Neurologic awake, alert and oriented x 3, AAOx3, moves all 4 extremities equally, motor intact, sensory intact, CN II-XII intact, normal cerebellar, normal vision, normal speech. Psychiatric normal mood/affect. Heme/Lymph/Immune no lymphadenopathy. Differential Diagnosis: Includes but is not limited to in a particular order electrolyte disturbance, infection, dehydration, cauda equina syndrome, compression fracture Medical Decision Making: Plan for this patient IV establishment blood cultures lactic acid, IV Dilaudid 1 mg for pain control, IV Zofran for nausea, 1 L normal saline. Check electrolytes. MRI lumbar spine. Rule out acute cauda equina syndrome. Re-evaluation: 225: Spoke with Dr. Quan on-call for oncology. When he talked to the family they are concerned about compression fracture cord impingement given his symptoms of metastatic disease to his spine leg weakness and and numbness and tingling of his bilateral lower extremities. Patient does have weakness on exam. Will perform rectal exam to check tone. However plan will be for lumbar spine MRI and T-spine MRI. Most likely this patient need to be admitted for generalized weakness. Rule out acute cord compression. 0154AM: MRI of the thoracic spine lumbar spine reviewed. No cord compression. No signs of acute cauda equina syndrome. No new osseous lesions however slight advancement of the osseous lesions. 0154: Patient still having pain. Leg weakness. Unable sit updated unable to stand. Patient be admitted to the hospitalist service for pain control PT OT evaluation. Source: Patient - Personal History Current Tetanus/Diphtheria Vaccine: Unsure Current Tetanus Diphtheria and Acellular Pertussis (TDAP): Unsure Tetanus Vaccine Date: < 10 YEARS - Medical/Surgical History Hx Asthma: No Hx Chronic Respiratory Disease: No Hx Diabetes: Yes Hx Cardiac Disease: No Hx Renal Disease: No Hx Cirrhosis: No Hx Alcoholism: No Hx HIV/AIDS: No Hx Splenectomy or Spleen Trauma: Yes Other PMH: NON SMALL CELL LUNG CANCER, DIABETES, HTN, HIGH CHOLESTEROL - Social History Smoking Status: Former smoker Constitutional: Initial Vital Signs Temperature (C) 37.3 C 01/18/17 22:19 Heart Rate 96 01/18/17 22:19 Respiratory Rate 20 01/18/17 22:19 Blood Pressure 105/67 01/18/17 22:19 O2 Sat (%) 95 01/18/17 22:19 O2 Delivery Mode Room Air Allergies/Adverse Reactions: No Known Allergies Allergy (Verified 01/18/17 22:19) Home Medications: Medication Instructions Recorded Atorvastatin Calcium [Lipitor 80 80 mg PO DAILY 09/16/16 mg] Fenofibrate,Micronized 134 mg PO DAILY 09/16/16 [Fenofibrate] Glimepiride [Amaryl] 4 mg PO HS 09/16/16 Linagliptin [Tradjenta] 5 mg PO DAILY 09/16/16 Multivitamins [Multivitamin (*)] 1 each PO DAILY 09/16/16 Omeprazole 40 mg PO BID 09/16/16 Potassium Chloride 20 meq PO DAILY 09/16/16 Rivaroxaban [Xarelto] 20 mg PO HS 09/16/16 Tamsulosin HCl [Flomax 0.4 MG (*)] 0.4 mg PO DAILY 09/16/16 amLODIPine BESYLATE [Amlodipine 10 mg PO DAILY 09/16/16 Besylate] Ondansetron [Ondansetron Odt] 8 mg PO Q8 PRN 12/30/16 Sertraline HCl [Zoloft 100mg (*)] 150 mg PO DAILY 12/30/16 fentaNYL [Duragesic 100 MCG Patch 100 mcg TD Q72H 12/30/16 (*)] Metoprolol Tartrate [Lopressor 25 12.5 mg PO DAILY #0 01/08/17 mg (*)] fentaNYL [Duragesic 50 MCG Patch 50 mcg TD Q3D #10 patch 01/08/17 (*)] Gabapentin [Gabapentin] 1,200 mg PO TID 01/19/17 HYDROmorphone HCL [Dilaudid 2 mg 6 mg PO Q3 PRN 01/19/17 (*)] Sennosides [Ex-Lax] 45 mg PO HS 01/19/17 Zolpidem Tartrate [Ambien 5MG (*)] 10 mg PO HS 01/19/17 Medical Decision Making - Diagnostics Imaging Results: Imaging Impressions Lumbar Spine MRI 01/19/17 00:20 Impression: 1. Stable osseous metastatic disease as detailed above. 2. Stable multilevel degenerative disk disease with findings most prominent at L3-L4 as detailed above. Please see findings at specific disk levels. The study was performed as an emergency on-call case and discussed by telephone with Dr. Kb Diaz at 0 154 hrs. The final interpretation is concordant with the original communication. Thoracic Spine MRI 01/19/17 00:20 Impression: 1. Mild progression of osseous metastatic disease with involvement of the posterior superior body of T9 extending superiorly into the T8-T9 disk space. 2. Progression of osseous metastatic disease at the T11 segment level. 3. Stable moderate posterior central disk protrusion/extrusion superiorly at T6- T7.. The study was performed as an emergency on-call case and discussed by telephone with Dr. Kb Diaz at 0147 hrs. The final interpretation is concordant with the original communication. - Data Points Laboratory Results: Laboratory Results 01/18/17 22:50 01/18/17 22:50 Medications Given: Atorvastatin Calcium (Lipitor) 80 mg PO DAILY MELODY Stop: 07/18/17 12:14 Last Admin: 01/19/17 13:25 Dose: 80 mg Gabapentin (Neurontin) 1,200 mg PO TID MELODY Stop: 07/18/17 13:14 Last Admin: 01/19/17 20:49 Dose: 1,200 mg Glimepiride (Amaryl) 4 mg PO HS MELODY Stop: 07/18/17 20:59 Last Admin: 01/19/17 20:50 Dose: 4 mg Hydromorphone HCl (Dilaudid) 0.2 - 0.4 mg IVP Q4HRS PRN PRN Reason: Pain, Severe Unable to Take PO Stop: 01/29/17 02:23 Last Admin: 01/19/17 21:22 Dose: 0.4 mg Sodium Chloride (Ns) 1,000 mls @ 100 mls/hr IV CONT MELODY Stop: 01/20/17 00:59 Last Admin: 01/19/17 18:29 Dose: 1,000 mls Insulin Human Lispro (Humalog Lispro) 0 unit SC TIDMEAL MELODY PRN Reason: Protocol Stop: 07/18/17 11:59 Last Admin: 01/19/17 18:30 Dose: 8 units Lorazepam (Ativan) 0.5 - 1 mg PO Q8HRS PRN PRN Reason: Anxiety, Able to Take PO Stop: 07/18/17 02:23 Last Admin: 01/19/17 03:17 Dose: 1 mg Metoprolol Tartrate (Lopressor) 12.5 mg PO DAILY MELODY Stop: 07/18/17 11:59 Last Admin: 01/19/17 13:26 Dose: 12.5 mg Miscellaneous Medication (Linagliptin [Tradjenta]) 5 mg PO DAILY [facility] Stop: 07/18/17 11:59 Last Admin: 01/19/17 14:56 Dose: 5 mg Miscellaneous Medication (Non-Formulary) 134 ea PO DAILY MELODY Stop: 07/18/17 13:29 Last Admin: 01/19/17 14:55 Dose: 134 mg Naproxen (Aleve) 220 mg PO TID PRN PRN Reason: Pain, Inflammatory Stop: 07/18/17 11:49 Last Admin: 01/19/17 13:25 Dose: 220 mg Oxycodone HCl (Oxycodone Ir) 5 - 10 mg PO Q4HRS PRN PRN Reason: Pain, Severe Able to Take PO Stop: 01/29/17 02:23 Last Admin: 01/19/17 18:29 Dose: 10 mg Pantoprazole Sodium (Protonix) 40 mg PO BID [facility] Stop: 07/18/17 12:14 Last Admin: 01/19/17 20:51 Dose: 40 mg Rivaroxaban (Xarelto) 20 mg PO HS MELODY Stop: 07/18/17 20:59 Last Admin: 01/19/17 20:51 Dose: 20 mg Zolpidem Tartrate (Ambien) 5 mg PO HS PRN PRN Reason: Sleep/Insomnia Stop: 07/18/17 10:05 Last Admin: 01/19/17 21:22 Dose: 5 mg Discontinued Medications Fenofibrate (Tricor) 145 mg PO DAILY [facility] Stop: 07/18/17 12:14 Last Admin: 01/19/17 15:01 Dose: Not Given Hydromorphone HCl (Dilaudid) 1 mg IVP EDNOW ONE Stop: 01/18/17 22:42 Last Admin: 01/18/17 23:10 Dose: 1 mg Hydromorphone HCl (Dilaudid) 1 mg IVP EDNOW ONE Stop: 01/18/17 23:43 Last Admin: 01/18/17 23:45 Dose: 1 mg Hydromorphone HCl (Dilaudid) 2 mg IVP EDNOW ONE Stop: 01/18/17 23:42 Last Admin: 01/18/17 23:49 Dose: 1 mg Hydromorphone HCl (Dilaudid) 2 mg IVP EDNOW ONE Stop: 01/19/17 02:29 Last Admin: 01/19/17 02:31 Dose: 2 mg Sodium Chloride (Ns) 1,000 mls @ 0 mls/hr IV EDNOW ONE; Wide Open PRN Reason: Protocol Stop: 01/18/17 22:34 Last Admin: 01/18/17 23:11 Dose: 1,000 mls Zolpidem Tartrate (Ambien) 10 mg PO HS PRN PRN Reason: Sleep/Insomnia Stop: 07/18/17 03:50 Last Admin: 01/19/17 04:04 Dose: 10 mg Departure - Departure Disposition: [facility] Acute Clinical Impression: Generalized weakness, Hyponatremia Back pain Qualifiers: Back pain location: low back pain Chronicity: acute Back pain laterality: unspecified Sciatica presence: without sciatica Qualified Code(s): M54.5 - Low back pain Condition: Fair
[2017-01-18] MEDS ORDERED: HYDROmorphONE/DILAUDID 1 MG/ML INJ IVP ONE ×3 (22:41→23:42)
[2017-01-18 23:05] LABS: % IMMATURE GRANULYOCYTES 0.5 % (0.0-1.1); ABSOLUTE IMMATURE GRANULOCYTES 0.03 10^3/uL (0.00-0.10); ADD DIFF? NO; ADD MORPH? NO; ADD SCAN? NO; ATYPICAL LYMPHOCYTE FLAG 0 (0-99); FRAGMENT RBC FLAG 20 (0-99); HEMATOCRIT 34.7 % (40.0-51.0); HEMOGLOBIN 11.9 g/dL (13.7-17.5); LEFT SHIFT FLG 0 (0-99); LIPEMIA HEMOLYSIS FLAG 90 (0-99); MEAN CELL HEMOGLOBIN 28.9 pg (27.9-34.1); MEAN CELL HEMOGLOBIN CONCENTR. 34.3 g/dL (32.4-36.7); MEAN CELL VOLUME 84.2 fL (81.5-99.8); MEAN PLATELET VOLUME 10.3 fL (8.7-11.7); PLATELET CLUMPS FLAG 0 (0-99); PLATELET COUNT 314 10^3/uL (150-400); RED BLOOD CELL COUNT 4.12 10^6/uL (4.40-6.38)
[2017-01-18 23:13] LABS: INR 1.3 (0.83-1.16); PROTIME(PATIENT) 16.2 SEC (12.0-15.0)
[2017-01-18 23:14] LABS: APTT 34.8 SEC (23.0-38.0)
[2017-01-18 23:17] LABS: ALANINE AMINOTRANSFERASE 303 IU/L (21-72); ALBUMIN 2.9 g/dL (3.5-5.0); ALKALINE PHOSPHATASE 141 IU/L (38-126); ANION GAP 8 mEq/L (8-16); ASPARTATE AMINOTRANSFERASE 194 IU/L (17-59); BILIRUBIN,TOTAL 1.6 mg/dL (0.1-1.4); BILIRUBIN-CONJUGATED 0.8 mg/dL (0.0-0.5); BILIRUBIN-UNCONJUGATED 0.8 mg/dL (0.0-1.1); CALCIUM 8.1 mg/dL (8.5-10.4); CARBON DIOXIDE 26 mEq/l (22-31); CHLORIDE 93 mEq/L (97-110); CREATININE 0.8 mg/dL (0.7-1.3); GLOMERULAR FILTRATION RATE > 60; GLUCOSE 151 mg/dL (70-100); POTASSIUM 3.6 mEq/L (3.5-5.2); SODIUM 127 mEq/L (134-144); TOTAL PROTEIN 5.6 g/dL (6.3-8.2)
[2017-01-19] MEDS ORDERED: GADOBUTROL 10 ML VIAL IVP ONE (00:32)
[2017-01-19] MEDS ORDERED: LORazepam 0.5 MG TAB PO PRN (02:24)
[2017-01-19] MEDS ORDERED: PROMETHAZINE HCL 25 MG/ML INJ IVP PRN (02:24)
[2017-01-19] MEDS ORDERED: ONDANSETRON 4 MG/2 ML VIAL IVP PRN (02:24)
[2017-01-19] MEDS ORDERED: HYDROmorphONE/DILAUDID 1 MG/ML INJ IVP ONE (02:28)
[2017-01-19] MEDS ORDERED: HYDROmorphONE/DILAUDID 2 MG/ML INJ ONE (02:29)
[2017-01-19] MEDS ORDERED: NS 1,000 ML IV SCH ×2 (02:30→15:00)
[2017-01-19] MEDS: HYDROmorphONE/DILAUDID 1 MG/ML INJ IVP PRN ×4 (03:16→21:22)
[2017-01-19] MEDS: oxyCODONE IR 5 MG TAB PO PRN ×3 (03:17→18:29)
[2017-01-19] MEDS ORDERED: ZOLPIDEM TARTRATE 5 MG TAB PO PRN (03:51)
[2017-01-19 05:33] LABS: % IMMATURE GRANULYOCYTES 0.6 % (0.0-1.1); ABSOLUTE IMMATURE GRANULOCYTES 0.03 10^3/uL (0.00-0.10); ADD DIFF? NO; ADD MORPH? NO; ADD SCAN? NO; ATYPICAL LYMPHOCYTE FLAG 0 (0-99); FRAGMENT RBC FLAG 0 (0-99); HEMATOCRIT 34.6 % (40.0-51.0); HEMOGLOBIN 11.7 g/dL (13.7-17.5); LEFT SHIFT FLG 0 (0-99); LIPEMIA HEMOLYSIS FLAG 90 (0-99); MEAN CELL HEMOGLOBIN 28.8 pg (27.9-34.1); MEAN CELL HEMOGLOBIN CONCENTR. 33.8 g/dL (32.4-36.7); MEAN CELL VOLUME 85.2 fL (81.5-99.8); MEAN PLATELET VOLUME 10.4 fL (8.7-11.7); PLATELET CLUMPS FLAG 0 (0-99); PLATELET COUNT 297 10^3/uL (150-400); RED BLOOD CELL COUNT 4.06 10^6/uL (4.40-6.38); RED CELL DISTRIBUTION WIDTH 17.1 % (11.5-15.2)
[2017-01-19 05:44] LABS: ALANINE AMINOTRANSFERASE 288 IU/L (21-72); ALBUMIN 2.7 g/dL (3.5-5.0); ALKALINE PHOSPHATASE 137 IU/L (38-126); ANION GAP 6 mEq/L (8-16); ASPARTATE AMINOTRANSFERASE 173 IU/L (17-59); BILIRUBIN,TOTAL 1.5 mg/dL (0.1-1.4); CALCIUM 7.6 mg/dL (8.5-10.4); CARBON DIOXIDE 23 mEq/l (22-31); CHLORIDE 99 mEq/L (97-110); CREATININE 0.7 mg/dL (0.7-1.3); GLOMERULAR FILTRATION RATE > 60; GLUCOSE 178 mg/dL (70-100); MAGNESIUM 1.7 mg/dL (1.6-2.3); POTASSIUM 3.6 mEq/L (3.5-5.2); SODIUM 128 mEq/L (134-144); TOTAL PROTEIN 5.3 g/dL (6.3-8.2)
--- NOTE | 2017-01-19 09:34 | PDGENHP ---
History and Physical - Chief Complaint lower extremity pain and weakness - History of Present Illness Source - Patient still quite somnolent at time of my interview on Oncology floor. He is able to answer a few yes no questions but falls quickly back to sleep. at bedside and supplements history. She appears reliable. EMR reviewed and case discussed with ED provider. HPI - Pleasant 66 yo M with pmhx significant for metastatic lung cancer undergoing chemotherapy, DM II, HTN, HLD, chronic back pain who presented to ED with complaints of worsening distal LE pain and weakness. Patient last chemotherapy treatment given Friday 4 days ago. He subsequently developed numbness/tingling sensation in his distal lower extremities and found it increasingly difficult to ambulate. Patient with history of chronic back pain and metastatic disease to spine. No c/o urinary retention/fecal incontinence per the . Patient has not had any falls or injuries. Patient denies any fevers/chills/sweats. No cough/CP/dysuria. Additionally reports patinent has had fair appetite and drinking upwards of 5 or more liters of water daily. History Information - Allergies/Home Medication List Allergies/Adverse Reactions: No Known Allergies Allergy (Verified 01/18/17 22:19) Home Medications: Atorvastatin Calcium [Lipitor 80 mg] 80 mg PO DAILY 09/16/16 [Last Taken ] Fenofibrate,Micronized [Fenofibrate] 134 mg PO DAILY 09/16/16 [Last Taken ] Gabapentin [Neurontin 100 MG (*)] 300 mg PO Q8H PRN 09/16/16 [Last Taken ] Glimepiride [Amaryl] 4 mg PO HS 09/16/16 [Last Taken 12/29/16] Linagliptin [Tradjenta] 5 mg PO DAILY 09/16/16 [Last Taken 12/29/16] Multivitamins [Multivitamin (*)] 1 each PO DAILY 09/16/16 [Last Taken 12/29/16] Omeprazole 40 mg PO BID 09/16/16 [Last Taken 12/29/16] Potassium Chloride 20 meq PO DAILY 09/16/16 [Last Taken 12/29/16] Rivaroxaban [Xarelto] 20 mg PO HS 09/16/16 [Last Taken 12/29/16] Tamsulosin HCl [Flomax 0.4 MG (*)] 0.4 mg PO BID 09/16/16 [Last Taken 12/29/16] amLODIPine BESYLATE [Amlodipine Besylate] 10 mg PO DAILY 09/16/16 [Last Taken ] Sennosides/Docusate Sodium [Senokot-S] 1 - 2 tab PO BID PRN 10/07/16 [Last Taken Unknown] Ondansetron [Ondansetron Odt] 8 mg PO Q8 PRN 12/30/16 [Last Taken Unknown] Sertraline HCl [Zoloft 100mg (*)] 150 mg PO DAILY 12/30/16 [Last Taken 12/29/16] fentaNYL [Duragesic 100 MCG Patch (*)] 100 mcg TD Q72H 12/30/16 [Last Taken ] I have personally reviewed and updated: family history, medical history, social history, surgical history - Past Medical History atrial fibrillation ( Status post DC cardioversion x2 with recent conversion back into AFib with news of his malignancy), cancer, chronic insomnia, diabetes type 2, hypertension, hyperlipidemia Additional medical history: metastatic non-small cell lung cancer currently receiving chemotherapy, last dosage 4 days ago, chronic back pain, BPH, depression/anxiety, GERD, HTN, DM II, HLD, Osteoarthritis - Surgical History Additional surgical history: right knee surgery. splenectomy - Family History Positive for: diabetes type II (son) Additional family history: no family history of neurologic issues - Social History Smoking Status: Former smoker Alcohol Use: None Drug Use: None Additional social history: patient reports that he does not experience shortness of breath or chest pain when he ambulates upstairs, otherwise does not participate in regular physical exercise. COR - FULL. Review of Systems Review of Systems: ROS: 10pt was reviewed & negative except for what was stated in HPI & below Constitutional: Reports: other (fatigue today). Denies: chills, fever, recent illness EENMT: Denies: eye pain, sore throat Cardiac: Reports: edema. Denies: chest pain, lightheadedness, palpitations, syncope Respiratory: Denies: cough, orthopnea, shortness of breath Gastrointestinal: Reports: other (decreased appetite.). Denies: vomitting, nausea Genitourinary: Denies: dysuria, hematuria Muscolosketal: Reports: back pain. Denies: joint swelling Skin: Denies: dryness, rash Neurological: Reports: anxiety, depressed, numbness Hematologic/Lymphatic: Reports: anemia. Denies: easy bruising Physical Exam Physical Exam: Temp Pulse Resp BP Pulse Ox 36.6 C 90 14 90/65 L 87 L 01/19/17 08:00 01/19/17 08:00 01/19/17 08:00 01/19/17 08:00 01/19/17 08:00 Constitutional: no apparent distress, obese, other (NAD. patient lays comfortably in bed quite somnolent. ) Eyes: PERRL, anicteric sclera, No scleral injection Ears, Nose, Mouth, Throat: dry mucous membranes Cardiovascular: regular rate and rhythym, edema (trace pre-tib edema. 1+ bilateral feet.), other (slightly distant heart sounds. ) Peripheral Pulses: 2+: dorsalis-pedis (R), dorsalis-pedis (L) Respiratory: no respiratory distress, expiratory wheeze (right lower lung krishnan. ), No no rales or rhonchi Gastrointestinal: normoactive bowel sounds, other (obese abdomen) Skin: warm, other (few abrasions to anterior shins), No rash Musculoskeletal: generalized weakness, other (moves all extremities. ) Neurologic: other (nonfocal exam. moves all extremities. fatigued limits exam. ) Psychiatric: other (limited 2/2 somnolence.) Lab Data & Imaging Review 01/19/17 05:02 01/19/17 05:02 WBC 5.29 10^3/uL (3.80-9.50) 01/19/17 05:02 RBC 4.06 10^6/uL (4.40-6.38) L 01/19/17 05:02 Hgb 11.7 g/dL (13.7-17.5) L 01/19/17 05:02 Hct 34.6 % (40.0-51.0) L 01/19/17 05:02 MCV 85.2 fL (81.5-99.8) 01/19/17 05:02 MCH 28.8 pg (27.9-34.1) 01/19/17 05:02 MCHC 33.8 g/dL (32.4-36.7) 01/19/17 05:02 RDW 17.1 % (11.5-15.2) H 01/19/17 05:02 Plt Count 297 10^3/uL (150-400) 01/19/17 05:02 MPV 10.4 fL (8.7-11.7) 01/19/17 05:02 Neut % (Auto) 82.0 % (39.3-74.2) H 01/19/17 05:02 Lymph % (Auto) 11.7 % (15.0-45.0) L 01/19/17 05:02 [place] % (Auto) 3.2 % (4.5-13.0) L 01/19/17 05:02 Eos % (Auto) 2.1 % (0.6-7.6) 01/19/17 05:02 Baso % (Auto) 0.4 % (0.3-1.7) 01/19/17 05:02 Nucleat RBC Rel Count 0.0 % (0.0-0.2) 01/19/17 05:02 Absolute Neuts (auto) 4.34 10^3/uL (1.70-6.50) 01/19/17 05:02 Absolute Lymphs (auto) 0.62 10^3/uL (1.00-3.00) L 01/19/17 05:02 Absolute Monos (auto) 0.17 10^3/uL (0.30-0.80) L 01/19/17 05:02 Absolute Eos (auto) 0.11 10^3/uL (0.03-0.40) 01/19/17 05:02 Absolute Basos (auto) 0.02 10^3/uL (0.02-0.10) 01/19/17 05:02 Absolute Nucleated RBC 0.00 10^3/uL (0-0.01) 01/19/17 05:02 Immature Gran % 0.6 % (0.0-1.1) 01/19/17 05:02 Immature Gran # 0.03 10^3/uL (0.00-0.10) 01/19/17 05:02 PT 16.2 SEC (12.0-15.0) H 01/18/17 22:50 INR 1.30 (0.83-1.16) H 01/18/17 22:50 APTT 34.8 SEC (23.0-38.0) 01/18/17 22:50 VBG Lactic Acid 1.3 mmol/L (0.7-2.1) 01/18/17 22:50 Sodium 128 mEq/L (134-144) L 01/19/17 05:02 Potassium 3.6 mEq/L (3.5-5.2) 01/19/17 05:02 Chloride 99 mEq/L (97-110) 01/19/17 05:02 Carbon Dioxide 23 mEq/l (22-31) 01/19/17 05:02 Anion Gap 6 mEq/L (8-16) L 01/19/17 05:02 BUN 14 mg/dL (7-23) 01/19/17 05:02 Creatinine 0.7 mg/dL (0.7-1.3) 01/19/17 05:02 Estimated GFR > 60 01/19/17 05:02 Glucose 178 mg/dL (70-100) H 01/19/17 05:02 POC Glucose 152 mg/dL (70-100) H 01/19/17 08:40 Calcium 7.6 mg/dL (8.5-10.4) L 01/19/17 05:02 Phosphorus 2.8 mg/dL (2.5-4.5) 01/19/17 05:02 Magnesium 1.7 mg/dL (1.6-2.3) 01/19/17 05:02 Total Bilirubin 1.5 mg/dL (0.1-1.4) H 01/19/17 05:02 Conjugated Bilirubin 0.8 mg/dL (0.0-0.5) H 01/18/17 22:50 Unconjugated Bilirubin 0.8 mg/dL (0.0-1.1) 01/18/17 22:50 AST 173 IU/L (17-59) H 01/19/17 05:02 ALT 288 IU/L (21-72) H 01/19/17 05:02 Alkaline Phosphatase 137 IU/L (38-126) H 01/19/17 05:02 Creatine Kinase 38 IU/L (0-224) 01/19/17 05:02 Total Protein 5.3 g/dL (6.3-8.2) L 01/19/17 05:02 Albumin 2.7 g/dL (3.5-5.0) L 01/19/17 05:02 TSH 1.710 uIU/mL (0.465-4.680) 01/19/17 05:02 Interpretation: per report - MRI spine with metastatic lesions no cord compression. Assessment & Plan Assessment: A/P Pleasant 66 yo M with hx metastatic nonsmall cell lung ca with c/o bilateral Lower leg pain/weakness. 1. bilateral lower extremity weakness - reported to have worsened shortly after last chemotherapy session. Symptoms concerning for exacerbation of neuropathic pain. continue gabapentin. PT/OT for ambulation. MRI neg for evidence of cord compression or fracture per pre-pritchett report. 2. hyponatremia - patient last sodium at discharge was 133. notes patient has been drinking excessive amount of water and fluids up to 5 or more liters daily and noting some increased swelling in lower extremities. Fluid restrict. d/c IVF. could also be some underlying SIADH in setting of cancer diagnosis. Will continue to monitor. 3. metastatic lung ca - followed by [facility]. s/p chemotherapy. monitor cbc. 4. chronic pain - continue patient dilaudid prn. 5. hypoalbuminemia - 2/2 chronic illness. continue to monitor. dietary consult. 6. hyperbilirubinemia - possibly metastatic disease. pt without abdominal pain. monitor lfts. 7. transaminitis - as above. 8. anemia - no evidence of acute bleeding. continue to monitor s/p chemotherapy. 9. DM II uncontrolled - resume patient home medications when list update available. insulin sliding scale prn. 10. benign essential HTN - monitor BPs. resume metoprolol when dosing can be verified. hold amlodipine in setting of complaint of LE edema and monitor. hydralazine prn. 11. HLD - hold statin in setting of transaminitis. 12. GERD - continue ppi 13. BPH - monitor I/O. continue flomax 14. Atrial fibrillation - s/p cardioversion. continue xarelto, metoprolol. 15. chronic insomnia. decreased ambien to 5mg patient was quite somnolent this morning. may have decreased clearance issues in setting of transaminitis. FEN - D/C IVF. fluid restriction. diet DM II. electrolyte replacement prn. monitor sodium PPX - SCDs. on xarelto will continue COR - FULL. to be MDPOA Dispo - Admit to oncology floor as inpatient status. Anticipate > 48 hour stay with patient progressive decline, in setting of metastatic lung cancer, acute hyponatremia and generalized debility.
[2017-01-19] MEDS ORDERED: D50W 25 GM/50 ML SYR IVP PRN (10:06)
[2017-01-19] MEDS ORDERED: hydrALAZINE 20 MG/ML VIAL IVP PRN (10:06)
--- NOTE | 2017-01-19 10:26 | PDMN ---
Medical Necessity Medical necessity: C/M review: est. > 2 MN LOS for eval and TX of acute hyponatremia, Na 127, acute and persistent bilateral lower extremity weakness of unclear etiology, progressive decline, general debility requiring ongoing fluid restriction, acute inpt PT, comorbid lung cancer metastatic to spine on current chemotherapy, chronic pain, transaminitis, uncontrolled type 2 diabetes , HYN, GERD, hyperlipidemia, anemia, atrial fibrillation, BPH, chronic insomnia per H/P.
[2017-01-19 11:00] LABS: COLOR YELLOW; LEUKOCYTE ESTERASE,URINE NEGATIVE (NEGATIVE); NITRITE,URINE NEGATIVE (NEGATIVE)
[2017-01-19] MEDS ORDERED: NAPROXEN SODIUM 220 MG TAB PO PRN (11:50)
[2017-01-19] MEDS ORDERED: ONDANSETRON 8 MG PO PRN (11:53)
[2017-01-19] MEDS ORDERED: HYDROmorphONE/DILAUDID 2 MG TAB PO PRN (11:53)
[2017-01-19] MEDS ORDERED: NON-FORMULARY NEW DRUG (Atorvastatin Calcium [Lipitor 80 Mg] 80 MG) PO SCH (12:00)
--- NOTE | 2017-01-19 12:00 | HOSPPROG ---
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 Gabapentin #Thoracic metastatic disease/acute on chronic back pain: worsened at T9, T11. Add naproxen. PPI since on Xarelto to avoid GI ulcers -decrease Dilaudid dose to 4mg since says he is often too sedated. Cont Fentanyl patch #Hyponatremia: gentle IVFs #Controlled DM: Cont home meds. SSI #Atrial fibrillation: BB, Xarelto #Weakness: PT/OT #Diet: Diabetic #DVT: Xareloto #Disp: warrants inpatient admission with uncontrolled pain, requires IV opioids , PT Subjective: numbess from knees to feet. No bowel/bladder incontinence Objective: Vital Signs Temp Pulse Resp BP Pulse Ox 36.6 C 90 14 90/65 L 87 L 01/19/17 08:00 01/19/17 08:00 01/19/17 08:00 01/19/17 08:00 01/19/17 08:00 Laboratory Results 01/19/17 05:02 01/19/17 05:02 01/18/17 01/19/17 01/20/17 05:59 05:59 05:59 Intake Total 1200 Output Total 700 525 Balance 500 -525 PT 16.2 SEC (12.0-15.0) H 01/18/17 22:50 INR 1.30 (0.83-1.16) H 01/18/17 22:50 - Physical Exam Constitutional: no apparent distress Eyes: PERRL Ears, Nose, Mouth, Throat: moist mucous membranes Cardiovascular: regular rate and rhythym Respiratory: no respiratory distress Gastrointestinal: normoactive bowel sounds Genitourinary: no bladder fullness, No garcia in urethra Skin: warm Musculoskeletal: other (weakness BL legs) Neurologic: AAOx3, CN II-XII Intact, other (normal sensation to touch over legs , feet) Psychiatric: interacting appropriately ICD10 Worksheet Patient Problems: Problems Problem Status Onset Back pain Acute Generalized weakness Acute Hyponatremia Acute Lung cancer Acute
[2017-01-19] MEDS ORDERED: FENOFIBRATE 145 MG TAB PO SCH (12:15)
--- NOTE | 2017-01-19 12:39 | GCON ---
[f rep st] CONSULTATION HEMATOLOGY/ONCOLOGY CONSULTATION DATE OF CONSULTATION: 01/19/2017 REASON FOR CONSULTATION: 1. Lower extremity pain. 2. Stage IV squamous cell carcinoma of the lung. RECOMMENDATIONS: 1. Trial of naproxen 250 mg p.o. t.i.d. 2. Gabapentin 100 mg p.o. t.i.d. 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 He presented with right sided chest pain. He had a large mass in the right lower lobe measuring 9.1 cm in longest dimension, and there were some satellite nodules in the same lung. He was found to have metastatic bone disease at the same time, and he also had a 1 cm liver metastasis. He had a normal brain MRI. His ALK, EGFR, and PD-L1 testing was negative. He then enrolled on a trial with nivolumab and low-dose ipilimumab. The patient after 2 cycles of treatment developed severe back pain. An MRI showed stenosis at T6, which was nonmalignant, a metastasis at T11 without epidural disease, and severe degenerative joint disease at L5-S1. Neurosurgery felt that his pain was due to osteoarthritis, and an epidural injection was given along with a steroid taper. The patient felt somewhat better, but then had a followup CT scan after cycle 3, day 15, and that showed evidence of progressive disease in the liver and primary site, so he was then taken off the trial and was placed on therapy with Taxol and carboplatin. The patient was treated with his first cycle of paclitaxel on January 15, and 48 hours later he began to experience lower extremity pain and back pain. His called twice over the weekend and last night said that the pain was so severe that he could not get out of bed. I called the emergency room to notify them of his situation. He had an MRI scan again performed of his thoracic spine and of his lumbar spine. The MRI scans showed no evidence for any epidural tumor. He had a stable disk protrusion at T6-7. He did have some worsening mets compared to the prior film at T9 and T11, but no epidural disease. The film of the lumbar spine revealed stable mets at L1-2 and L5-S1, with stable degenerative joint disease and disks, and non-foraminal stenosis. The patient had radiation to the lumbar spine in the past 6 weeks. It apparently was helping his low back pain until he started on Taxol and carbo. At the same time , he is complaining of numbness below the knees. He has had no bladder or bowel dysfunction. The patient on his MRIs has not had any dural thickening. His brain has been free of any metastases. It is my impression that this is most likely due to Taxol-related neuropathy, arthralgias, and myalgias, and it should pass, but I will give him naproxen, and I will try to treat him as well with low doses of gabapentin initially. Then, we will wait and watch, and see if his symptoms resolve in the next 24 hours to 48 hours, like they almost always do. PAST MEDICAL HISTORY: Tobacco history reveals he quit 17 years ago, but prior to that, was a heavy smoker. He has a history of diabetes, atrial fibrillation , hypertension, and hyperlipidemia. 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 FAMILY HISTORY: Noncontributory. SOCIAL HISTORY: The patient is a nondrinker, and he lives with his of 41 years. They have 4 children. He previously worked in the [employer]. REVIEW OF SYSTEMS: Shows no evidence of fecal or urinary incontinence. No chest pain or cough at this time. He is not dyspneic at rest. There is no nausea or vomiting. He is not paralyzed. LABORATORY DATA: Recent lab work in the office revealed that his transaminases were about less than 2 times the upper limit of normal. The bilirubin was 0.9. When he presented last evening, his labs were further improved with a transaminase of 28, down from 303. The alk phos was 137. The AST was down from 194 to 173. At this time, the total bilirubin is 1.5. Electrolytes show very mild hyponatremia. PHYSICAL EXAMINATION: CLINICAL: Exam reveals a well-developed gentleman looking his stated age. Alert and oriented. As I examined him, he was able to freely move his legs around in bed and move himself over. He has some proximal muscle weakness, probably due to the steroids. In addtion there is proximal muscle atrophy. There was no evidence of any calf tenderness. His reflexes are decreased in the lower extremities. LYMPH NODES: There is no cervical or supraclavicular adenopathy. LUNGS: Clear to P and A. CV: S1 normal. S2 normally split. There is no S3, S4, or murmur. ABDOMEN: Soft and nontender, without hepatomegaly. RECTAL: Exam reveals normal sphincter tone. CLINICAL IMPRESSION: 1. The patient has what appears to be taxane-induced arthralgias and myalgias, and there may be some peripheral neuropathy. I will place him on gabapentin and naproxen, and monitor him. 2. Hyponatremia: We may want to consider a spinal tap (EVENT AV OPERATOR), although I do not think there is any clinical evidence for carcinomatous meningitis, but it is something I will keep in mind, although usually there is a profound headache. 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 3. Stage IV squamous cell carcinoma, progressing on first-line treatment, and now on Taxol and carboplatin. He has had 1 cycle 5 days ago. /[id number]/MODL MTDD
[2017-01-19] MEDS: GABAPENTIN 400 MG CAP PO SCH ×3 (13:25→23:37)
[2017-01-19] MEDS: ATORVASTATIN CALCIUM 40 MG TAB PO SCH (13:25)
[2017-01-19] MEDS: METOPROLOL TARTRATE 25 MG TAB PO SCH (13:26)
[2017-01-19] MEDS: INSULIN LISPRO 100 UNIT/ML SC SCH ×2 (13:29→18:30)
[2017-01-19] MEDS: PANTOPRAZOLE SODIUM 40 MG TAB PO SCH ×2 (14:55→20:51)
[2017-01-19] MEDS: FENOFIBRATE 134MG CAPSULE PO SCH (14:55)
[2017-01-19] MEDS ORDERED: GABAPENTIN 100 MG CAP PO SCH (16:00)
[2017-01-19] MEDS ORDERED: NON-FORMULARY NEW DRUG (Gabapentin [Gabapentin] 1,200 MG) PO SCH (16:00)
[2017-01-19] MEDS ORDERED: GABAPENTIN 400 MG CAP PO SCH (16:00)
--- NOTE | 2017-01-19 17:06 | ASMTCMCOM ---
CM Note CM Note Notes: Reviewed chart, spoke w/ ANT Nur re: d/c poc, pt's progress. Pt admitted for Taxol induced neuropathy; thoracic metastatic dx sec to stage IV squamous cell lung carcinoma. MRI done to r/o cord compression; MRI negative. Pt lives w/ his and 4 children. Per Onc, neuropathy typically resolves/improves w/in a few days of treatment. Anticipate pt will likely d/c home w/ family support when medically stable. CM will cont to follow. Date Signed: 01/19/2017 05:05 PM Electronically Signed By:Aixa Leonard RN
[2017-01-19] MEDS: GLIMEPIRIDE 2 MG TAB PO SCH (20:50)
[2017-01-19] MEDS: RIVAROXABAN 20 MG TAB PO SCH (20:51)
[2017-01-19] MEDS ORDERED: NON-FORMULARY NEW DRUG (Omeprazole [Omeprazole] 40 MG) PO SCH (21:00)
[2017-01-19] MEDS ORDERED: ZOLPIDEM TARTRATE 5 MG TAB PO SCH (21:00)
[2017-01-19] MEDS: ZOLPIDEM TARTRATE 5 MG TAB PO PRN (21:22)
[2017-01-19] MEDS: SENNOSIDES PO SCH (23:36)
[2017-01-20] MEDS: HYDROmorphONE/DILAUDID 2 MG TAB PO PRN ×3 (06:22→18:45)
--- NOTE | 2017-01-20 07:20 | SOAPPROG ---
ANUSHA Progress Note Assessment/Plan: Assessment: 1. Metastatic SCC of lung with bone/liver mets: He is now on day 6 of Tacxol/ carbo. The side effects are abating. 2. Taxol induced myalgias and arthralgias and tingling: The side effects are abating and he is on naproxen. He is taking Fentanyl patch 150 micrograms every 3 days with dilaudid for breakthrough pain. The pain is mostly due to DJD and now Taxol. He had XRT to the lumbar spine. I did more counseling about the side effects to expect today. 3. Low Na: there is no evidence of cacinomatous meningits on the scans. 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 He should remain on fluid restriction Plan: Home today with a walker 01/20/17 07:15 Subjective: Moncho was admitted after c/o "not being able to get out of bed," numbness in his legs, and joint and muscle pain. It is better today. Objective: Vital Signs Temp Pulse Resp BP Pulse Ox 37 C 74 16 112/71 97 01/20/17 04:00 01/20/17 04:00 01/20/17 04:00 01/20/17 04:00 01/20/17 04:00 Laboratory Results 01/19/17 05:02 01/19/17 05:02 01/19/17 01/20/17 01/21/17 05:59 05:59 05:59 Intake Total 1200 3282 Output Total 700 2125 500 Balance 500 1157 -500 PT 16.2 SEC (12.0-15.0) H 01/18/17 22:50 INR 1.30 (0.83-1.16) H 01/18/17 22:50 ICD10 Worksheet Patient Problems: Problems Problem Status Onset Back pain Acute Generalized weakness Acute Hyponatremia Acute Lung cancer Acute
[2017-01-20] MEDS: SERTRALINE HCL 100 MG TAB PO SCH (10:19)
[2017-01-20] MEDS: ATORVASTATIN CALCIUM 40 MG TAB PO SCH (10:20)
[2017-01-20] MEDS: METOPROLOL TARTRATE 25 MG TAB PO SCH (10:22)
[2017-01-20] MEDS: GABAPENTIN 400 MG CAP PO SCH ×3 (10:23→22:08)
[2017-01-20] MEDS: PANTOPRAZOLE SODIUM 40 MG TAB PO SCH ×2 (10:24→22:09)
[2017-01-20] MEDS: MULTIVITAMINS 1 EACH TAB PO SCH (10:24)
[2017-01-20] MEDS: TAMSULOSIN HCL 0.4 MG CAP PO SCH (10:24)
[2017-01-20] MEDS: FENOFIBRATE 134MG CAPSULE PO SCH (10:25)
[2017-01-20] MEDS: INSULIN LISPRO 100 UNIT/ML SC SCH ×3 (10:26→18:27)
[2017-01-20] MEDS: HYDROmorphONE/DILAUDID 1 MG/ML INJ IVP PRN ×2 (10:59→21:15)
--- NOTE | 2017-01-20 11:13 | PDIAF ---
- Diagnosis Diagnosis: Weakness, metastatic lung cancer Code Status: Full Code - Medication Management Discharge Medications: Medications to Continue on Transfer Atorvastatin Calcium [Lipitor 80 mg] 80 mg PO DAILY 09/16/16 [Last Taken ] Fenofibrate,Micronized [Fenofibrate] 134 mg PO DAILY 09/16/16 [Last Taken ] Glimepiride [Amaryl] 4 mg PO HS 09/16/16 [Last Taken 01/18/17] Linagliptin [Tradjenta] 5 mg PO DAILY 09/16/16 [Last Taken 01/18/17] Multivitamins [Multivitamin (*)] 1 each PO DAILY 09/16/16 [Last Taken 01/18/17] Omeprazole 40 mg PO BID 09/16/16 [Last Taken 01/18/17] Potassium Chloride 20 meq PO DAILY 09/16/16 [Last Taken 01/18/17] Rivaroxaban [Xarelto] 20 mg PO HS 09/16/16 [Last Taken 01/17/17] Tamsulosin HCl [Flomax 0.4 MG (*)] 0.4 mg PO DAILY 09/16/16 [Last Taken 01/18/17 ] amLODIPine BESYLATE [Amlodipine Besylate] 10 mg PO DAILY 09/16/16 [Last Taken ] Ondansetron [Ondansetron Odt] 8 mg PO Q8 PRN 12/30/16 [Last Taken Unknown] Sertraline HCl [Zoloft 100mg (*)] 150 mg PO DAILY 12/30/16 [Last Taken 01/18/17] fentaNYL [Duragesic 100 MCG Patch (*)] 100 mcg TD Q72H 12/30/16 [Last Taken 10/28] Metoprolol Tartrate [Lopressor 25 mg (*)] 12.5 mg PO DAILY #0 01/08/17 [Last Taken 01/18/17] fentaNYL [Duragesic 50 MCG Patch (*)] 50 mcg TD Q3D #10 patch 01/08/17 [Last Taken 01/18/17] Gabapentin 1,200 mg PO TID 01/19/17 [Last Taken 01/18/17 20:00] Sennosides [EX-LAX] 45 mg PO HS 01/19/17 [Last Taken 01/17/17] Zolpidem Tartrate [Ambien 5MG (*)] 10 mg PO HS 01/19/17 [Last Taken 01/17/17] HYDROmorphone HCL [Dilaudid 2 mg (*)] 4 mg PO Q6 PRN tab 01/20/17 [Last Taken Unknown] Naproxen Sodium [Aleve 220 MG (*)] 220 mg PO TID PRN #30 tab 01/20/17 [Last Taken Unknown] Discharge Medications: Refer to the Discharge Home Medication list for PRN reason. - Orders Services needed: Home Care, Certified Biology Lecturer, Physical Therapy, Occupational Therapy Home Care Face to Face: I certify that this patient was under my care and that I had the required [id number] encounter meeting the encounter requirements on the discharge day. My findings support the fact that the patient is homebound as defined in Home Care Face to Face Continued: CMS Chapter 7 Medicare Benefits Manual 30.1.1 , The condition of the patient is such that there exists a normal inability to leave home and consequently, leaving home would require a considerable and taxing effort. Diet Recommendation: ADA 2200 consistent carb, breast feeding - Follow Up Care Current Providers and Referrals: LORRI SHAW [Other] - As per Instructions
--- NOTE | 2017-01-20 11:23 | GDS ---
[f rep st] DISCHARGE SUMMARY DISCHARGE DIAGNOSES: 1. Lower extremity pain/numbness. 2. Stage IV squamous cell carcinoma of the lung. 3. Diabetes. 4. Atrial fibrillation, status post cardioversion. 5. Chronic insomnia. 6. Hypertension. 7. Hyperlipidemia. 8. Chronic back pain. 9. Benign prostatic hypertrophy. 10. Depression/anxiety. 11. Gastroesophageal reflux disease. 12. Osteoarthritis. HISTORY: This is a pleasant 66-year-old Khmer male with past medical history of stage IV metastatic lung cancer undergoing chemotherapy, diabetes, hypertension, hyperlipidemia, chronic back pain; who presented to the emergency room with worsening distal lower extremity pain and weakness. His last chemotherapy was 4 days prior to admission. He subsequently developed numbness and tingling in his distal lower extremities and found it very difficult to ambulate. He does have a history of chronic back pain and thoracic metastatic disease. He denied any urinary retention or fecal and urinary incontinence. He has not had any falls or injuries. Patient's did report that he does get too somnolent sometimes with his Dilaudid. HOSPITAL COURSE BY PROBLEM: 1. Taxol-induced neuropathy: MRI was negative for cord compression. We will continue gabapentin. 2. Acute on chronic back pain secondary to increased thoracic metastatic disease: Continue his home gabapentin and fentanyl patch. I did reduce his Dilaudid to 4 mg from 6 mg due to somnolence per his . Also added naproxen intermittently. He was advised to take this with food and alternate with Tylenol, and continue his proton pump inhibitor to avoid gastrointestinal ulcers. 3. Hyponatremia secondary to decreased p.o. intake. This improved with fluids. 4. Controlled diabetes. Continue home medications. 5. Atrial fibrillation. Continue beta kaleigh and Xarelto. 6. Weakness. The patient was seen by physical therapy/occupational therapy, and is doing well with walker. He will be discharged with that home. PHYSICAL EXAM: VITAL SIGNS: Today, temperature 36.8 blood pressure 112/69, heart rate 95, respiratory rate 16, 95% on room air. GENERAL: Walking around room with walker without issue. HEENT: PERRLA. EOMI. Oropharynx clear. Moist mucous membranes. CV: Irregular, irregular. LUNGS: Clear to auscultation bilaterally. ABDOMEN: Soft, nontender, nondistended. Positive bowel sounds. : No suprapubic tenderness. MUSCULOSKELETAL: Moving all 4 extremities using a walker. NEURO: Cranial nerves 2 through 12 intact. Decreased sensation over the toes. PSYCH: Alert and oriented x3. DISPOSITION: Patient is stable for discharge home with home health RN, PT and walker. MEDICATIONS: New medications: Naproxen and Tylenol p.r.n. Changed medication: Decreased Dilaudid to 4 mg p.r.n. FOLLOWUP: 1. PCP. 2. Primary oncologist, Dr. Solis. /[id number]/MODL MTDD
--- NOTE | 2017-01-20 16:16 | ASMTCMCOM ---
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 Spoke w/Sarah from [facility] earlier and seemed like they would be able to accept but Sarah on site and said they cannot b/c M'Caid. She tried many other agencies but had no luck finding one that would take pt in [facility] and/or w/M'Caid. Still waiting to hear back from [facility] and [facility] ([place] at [facility] [phone], f [phone])- I sent referrals to both of these. If neither of these can accept can try [facility] at [phone]. Pt has supportive at home and children in [facility] area. reported she has a lad who comes into their mendy to help with household things. I gave them [facility] Meals on Wheels info. Anticipate pt will dc home tomorrow once we have HHC in place; d/w ANT and Dr. Boland. Date Signed: 01/20/2017 04:16 PM Electronically Signed By:Suzanna Durbin RN
--- NOTE | 2017-01-20 17:38 | HOSPPROG ---
Hospitalist Progress Note Assessment/Plan: Addendum: Patient concerned about pain control and CM still working on home health coordination. Will keep patient overnight to cont IV opioids and ensure measure in place for safe DC tomorrow Objective: Vital Signs Temp Pulse Resp BP Pulse Ox 37.6 C 86 15 91/52 L 95 01/20/17 16:10 01/20/17 16:10 01/20/17 16:10 01/20/17 16:10 01/20/17 16:10 Laboratory Results 01/19/17 05:02 01/19/17 05:02 01/19/17 01/20/17 01/21/17 05:59 05:59 05:59 Intake Total 1200 3282 Output Total 700 2125 500 Balance 500 1157 -500 PT 16.2 SEC (12.0-15.0) H 01/18/17 22:50 INR 1.30 (0.83-1.16) H 01/18/17 22:50 ICD10 Worksheet Patient Problems: Problems Problem Status Onset Back pain Acute Generalized weakness Acute Hyponatremia Acute Lung cancer Acute
--- NOTE | 2017-01-20 20:16 | CPEKG ---
Heart Rate: 82 RR Interval: 732 QRSD Interval: 86 QT Interval: 384 QTC Interval: 449 QRS Paterson: 5 T Wave Paterson: -6 EKG Severity - ABNORMAL ECG - EKG Impression: ATRIAL FIBRILLATION, V-RATE 58-102 EKG Impression: BORDERLINE T ABNORMALITIES, INFERIOR LEADS EKG Impression: IN COMPARISON TO PRIOR ECG, ATRIAL FIBRILLATION IS NEW. REVIEW OF PRIOR ECG EKG Impression: WITH WHAT APPEARS TO BE ATRIAL FIBRILLATION AND SLOW VENTRICULAR RESPONSE (NOT EKG Impression: SINUS BRADYCARDIA) Electronically Signed By: Nikko Field 26-Jan-2017 09:05:38
[2017-01-20] MEDS ORDERED: NITROGLYCERIN 0.4 MG BTL SL PRN (20:47)
[2017-01-20] MEDS: RIVAROXABAN 20 MG TAB PO SCH (22:08)
[2017-01-20] MEDS: GLIMEPIRIDE 2 MG TAB PO SCH (22:09)
[2017-01-20] MEDS: ZOLPIDEM TARTRATE 5 MG TAB PO PRN (22:12)
[2017-01-20] MEDS: SENNOSIDES PO SCH (22:44)
[2017-01-21 07:00] LABS: ALANINE AMINOTRANSFERASE 347 IU/L (21-72); ALBUMIN 2.3 g/dL (3.5-5.0); ALKALINE PHOSPHATASE 101 IU/L (38-126); ANION GAP 6 mEq/L (8-16); ASPARTATE AMINOTRANSFERASE 236 IU/L (17-59); BILIRUBIN,TOTAL 1.3 mg/dL (0.1-1.4); CALCIUM 7.5 mg/dL (8.5-10.4); CARBON DIOXIDE 21 mEq/l (22-31); CHLORIDE 102 mEq/L (97-110); CREATININE 0.6 mg/dL (0.7-1.3); GLOMERULAR FILTRATION RATE > 60; GLUCOSE 109 mg/dL (70-100); POTASSIUM 3.8 mEq/L (3.5-5.2); SODIUM 129 mEq/L (134-144)
[2017-01-21 07:05] LABS: TROPONIN I < 0.012 ng/mL (0.000-0.034)
[2017-01-21] MEDS: INSULIN LISPRO 100 UNIT/ML SC SCH ×3 (07:30→18:32)
[2017-01-21] MEDS ORDERED: fentaNYL 100 MCG PATCH TD SCH (08:00)
[2017-01-21] MEDS ORDERED: fentaNYL 50 MCG PATCH TD SCH (08:00)
--- NOTE | 2017-01-21 09:49 | SOAPPROG ---
ANUSHA Progress Note Assessment/Plan: Assessment: 1. Metastatic SCC of lung with bone/liver mets: He is now on day 7 of Tacxol/ carbo. The side effects are abating. 2. Taxol induced myalgias and arthralgias and tingling: The side effects are abating and he is on naproxen. He is taking Fentanyl patch 150 micrograms every 3 days with dilaudid for breakthrough pain. The pain is mostly due to DJD and now Taxol. He had XRT to the lumbar spine. I did more counseling about the side effects to expect today. HE is ready to go home. 3. Low Na: there is no evidence of cacinomatous meningits on the scans. 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 He should remain on fluid restriction Plan: Home today with a walker 01/20/17 07:15 01/21/17 09:48 Subjective: Moncho was admitted after c/o "not being able to get out of bed," numbness in his legs, and joint and muscle pain. he is much better and going home today. Objective: Vital Signs Temp Pulse Resp BP Pulse Ox 36.7 C 76 18 105/65 92 01/21/17 08:00 01/21/17 08:00 01/21/17 08:00 01/21/17 08:00 01/21/17 08:00 Laboratory Results 01/19/17 05:02 01/21/17 04:30 01/20/17 01/21/17 01/22/17 05:59 05:59 05:59 Intake Total 3282 1200 Output Total 2125 900 Balance 1157 300 PT 16.2 SEC (12.0-15.0) H 01/18/17 22:50 INR 1.30 (0.83-1.16) H 01/18/17 22:50 ICD10 Worksheet Patient Problems: Problems Problem Status Onset Back pain Acute Lung cancer Acute Generalized weakness Acute Hyponatremia Acute
[2017-01-21] MEDS: PANTOPRAZOLE SODIUM 40 MG TAB PO SCH ×2 (09:52→20:55)
[2017-01-21] MEDS: oxyCODONE IR 5 MG TAB PO PRN ×2 (09:52→20:53)
[2017-01-21] MEDS: GABAPENTIN 400 MG CAP PO SCH ×3 (09:52→20:59)
[2017-01-21] MEDS: MULTIVITAMINS 1 EACH TAB PO SCH (09:52)
[2017-01-21] MEDS: ATORVASTATIN CALCIUM 40 MG TAB PO SCH (09:52)
[2017-01-21] MEDS: SERTRALINE HCL 100 MG TAB PO SCH (09:53)
[2017-01-21] MEDS: METOPROLOL TARTRATE 25 MG TAB PO SCH (09:53)
[2017-01-21] MEDS: TAMSULOSIN HCL 0.4 MG CAP PO SCH (09:53)
[2017-01-21] MEDS: FENOFIBRATE 134MG CAPSULE PO SCH (09:57)
--- NOTE | 2017-01-21 10:04 | ASMTCMCOM ---
CM Note CM Note Notes: Chart reviewed. Discussed home care needs with MD. Spoke with [facility], and they are able to accept patient. Referral information sent. Spoke with regarding inquiry to Meals on Wheels, the [facility] does not provide the first 5 days of meals for for free like [facility]. She asked that I inquire about cost regarrdless, Message left with Yesenia to call me with information. CM to follow Date Signed: 01/21/2017 10:03 AM Electronically Signed By:Fe Uribe RN
[2017-01-21] MEDS: LIDOCAINE 5% 1 EA PATCH TD SCH (11:04)
[2017-01-21] MEDS ORDERED: DIPHENOXYLATE/ATROPINE LOMOTIL 1 TAB PO PRN (15:26)
--- NOTE | 2017-01-21 19:46 | HOSPPROG ---
Hospitalist Progress Note Assessment/Plan: DIAGNOSES: # UNCONTROLLED PAIN -neuropathic pain in legs feet toes, likely largely a chemo side effect ( this is still hindering ambulation significantly) -lumbar spine pain, due to tumor as well as degenerative disease # ONGOING SIDE EFFECTS OF SEDATION DUE TO NARCOTIC AND GABAPENTIN # HYPONATREMIA, improved # DIARRHEA, NEW ONSET TODAY # HYPOTENSION, ? due to fluid losses from diarrhea # ONGOING HEPATITIS FROM CHEMOTHERAPY PLANS: -fluids for low bp -trial of lidoderm on feet for pain -check stools for C diff or other organism -continue current pain meds -continue PT and OT -we now have home care set up for when he discharges SUBJECTIVE: still quite a bit of pain, now mainly in the feet and toes of neuropathic nature w paresthesias back pain better ambulation still quite limited by pain VITALS: some hypotension today, no fever EXAM: groggy but oriented skin warm dry good color no rash resps good lungs clear abd soft nondistended nontender no edema joints nl Objective: Vital Signs Temp Pulse Resp BP Pulse Ox 36.8 C 84 18 96/58 L 94 01/21/17 15:08 01/21/17 11:32 01/21/17 15:08 01/21/17 15:08 01/21/17 15:08 Laboratory Results 01/19/17 05:02 01/21/17 04:30 01/20/17 01/21/17 01/22/17 06:59 06:59 06:59 Intake Total 3282 1200 918 Output Total 2625 400 604 Balance 657 800 314 PT 16.2 SEC (12.0-15.0) H 01/18/17 22:50 INR 1.30 (0.83-1.16) H 01/18/17 22:50 ICD10 Worksheet Patient Problems: Problems Problem Status Onset Back pain Acute Generalized weakness Acute Hyponatremia Acute Lung cancer Acute
[2017-01-21] MEDS: RIVAROXABAN 20 MG TAB PO SCH (20:55)
[2017-01-21] MEDS: GLIMEPIRIDE 2 MG TAB PO SCH (20:55)
[2017-01-21] MEDS ORDERED: PATCH REMOVAL 1 EA PATCH TD SCH (21:00)
[2017-01-21] MEDS: ZOLPIDEM TARTRATE 5 MG TAB PO PRN (21:59)
[2017-01-21] MEDS: SENNOSIDES PO SCH (22:00)
[2017-01-22 04:45] VITALS: TEMP 97.9; O2SAT 93
--- NOTE | 2017-01-22 06:55 | SOAPPROG ---
ANUSHA Progress Note Assessment/Plan: Assessment: 1. Metastatic SCC of lung with bone/liver mets: He is now on day 8 of Taxol/ carbo. The side effects are abating. 2. Taxol induced myalgias and arthralgias and tingling: The side effects are abating and he is on naproxen. He is taking Fentanyl patch 150 micrograms every 3 days with dilaudid for breakthrough pain. The pain is mostly due to DJD and now Taxol. He had XRT to the lumbar spine. I did more counseling about the side effects to expect today. HE is ready to go home. 3. Low Na: there is no evidence of cacinomatous meningits on the scans. 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 He should remain on fluid restriction 4. Hypotensive from BP meds: i stopped the metoprolol today. Plan: Home today with a walker. Follow up next week with Dr. zimmerman 01/20/17 07:15 01/21/17 09:48 01/22/17 08:02 Subjective: Moncho was admitted after c/o "not being able to get out of bed," numbness in his legs, and joint and muscle pain. he is much better and going home today. The numbness in his legs is about gone. Objective: Vital Signs Temp Pulse Resp BP Pulse Ox 36.6 C 78 16 119/68 93 01/22/17 04:00 01/22/17 04:00 01/22/17 04:00 01/22/17 04:00 01/22/17 04:00 Laboratory Results 01/19/17 05:02 01/21/17 04:30 01/21/17 01/22/17 01/23/17 05:59 05:59 05:59 Intake Total 1200 1418 Output Total 900 604 Balance 300 814 PT 16.2 SEC (12.0-15.0) H 01/18/17 22:50 INR 1.30 (0.83-1.16) H 01/18/17 22:50 proximal muscle atrophy ICD10 Worksheet Patient Problems: Problems Problem Status Onset Back pain Acute Lung cancer Acute Generalized weakness Acute Hyponatremia Acute
[2017-01-22 08:50] LABS: ALBUMIN 2.4 g/dL (3.5-5.0); BILIRUBIN,TOTAL 1.4 mg/dL (0.1-1.4); BILIRUBIN-CONJUGATED 1.1 mg/dL (0.0-0.5); BILIRUBIN-UNCONJUGATED 0.3 mg/dL (0.0-1.1)
[2017-01-22] MEDS: ATORVASTATIN CALCIUM 40 MG TAB PO SCH (09:27)
[2017-01-22] MEDS: GABAPENTIN 400 MG CAP PO SCH (09:27)
[2017-01-22] MEDS: MULTIVITAMINS 1 EACH TAB PO SCH (09:27)
[2017-01-22 09:28] VITALS: BP 110/75
[2017-01-22] MEDS: LIDOCAINE 5% 1 EA PATCH TD SCH (09:29)
[2017-01-22] MEDS: FENOFIBRATE 134MG CAPSULE PO SCH (09:30)
[2017-01-22] MEDS: INSULIN LISPRO 100 UNIT/ML SC SCH (09:34)
[2017-01-22 09:38] VITALS: PULSE 80; RESP 17
[2017-01-22] MEDS: PANTOPRAZOLE SODIUM 40 MG TAB PO SCH (09:44)
[2017-01-22] MEDS: TAMSULOSIN HCL 0.4 MG CAP PO SCH (09:44)
[2017-01-22] MEDS: SERTRALINE HCL 100 MG TAB PO SCH (09:44)
--- NOTE | 2017-01-22 10:38 | PDDCSUM ---
Discharge Summary Discharge Summary: DISCHARGE DIAGNOSES: # UNCONTROLLED PAIN OF CANCER AND CHEMOTHERAPY -neuropathic pain in legs feet toes, likely largely a chemo side effect and hindering ambulation -lumbar spine pain, due to tumor as well as degenerative disease # ONGOING SIDE EFFECTS OF SEDATION DUE TO NARCOTIC AND GABAPENTIN # HYPONATREMIA # DIARRHEA # HYPOTENSION # ONGOING HEPATITIS FROM CHEMOTHERAPY CONSULTANTS: DR. GO HAILE PROCEDURES: MRI of thoracic and lumbar spine: Stable metastatic disease and lumbar spinal had recent radiation therapy, some progression of the thoracic spine disease HOSPITAL COURSE SUMMARY: This patient with known metastatic lung cancer on chemotherapy with ongoing side effect of neuropathy came into the hospital with uncontrolled pain, and with sedation from narcotic medicines and gabapentin. He was somewhat dehydrated and probably had not been eating real well. He had some diarrhea which probably led to lower blood pressures dehydration and hyponatremia. He was quite weak and not thriving well. He was admitted and hydrated intravenously which helped his fluid status and hypovolemia nicely. The diarrhea resolved on its own. His main complaints particularly during the latter half of his hospital stay included ongoing severe neuropathic pain in the feet and toes and lower legs. MRI of the spine did not show any nerve impingement which is the same that we have seen in the past. His neuropathy is felt to likely be due to his chemotherapy. At this point he is on high doses of gabapentin and is not getting any relief from the inner narcotics that he is taking for that particular pain. He is taking also a nonsteroidal anti- inflammatory medicine at home. We did try some Lidoderm patches to the feet and he is not yet really had time to assess have much improvement he is getting with that. He will continue to trial that at home. At this point he is eating and drinking well up ambulating in the hallway and has more reasonable pain control. He is stable for discharge to home PENDING TEST RESULTS: None MEDICATION CHANGES: He will start putting Lidoderm patches on his feet as he has not been putting them on his back and does not need them there at this point Otherwise pain medicines will be the same FOLLOW-UP PLAN: He has an appointment with Dr. Solis next week Greater than 35 minutes bedside and care coordination time today
--- NOTE | 2017-01-22 13:42 | PDIAF ---
- Diagnosis Diagnosis: Weakness, metastatic lung cancer Code Status: Full Code - Medication Management Discharge Medications: Medications to Continue on Transfer Atorvastatin Calcium [Lipitor 80 mg] 80 mg PO DAILY 09/16/16 [Last Taken ] Fenofibrate,Micronized [Fenofibrate] 134 mg PO DAILY 09/16/16 [Last Taken ] Glimepiride [Amaryl] 4 mg PO HS 09/16/16 [Last Taken 01/18/17] Linagliptin [Tradjenta] 5 mg PO DAILY 09/16/16 [Last Taken 01/18/17] Multivitamins [Multivitamin (*)] 1 each PO DAILY 09/16/16 [Last Taken 01/18/17] Omeprazole 40 mg PO BID 09/16/16 [Last Taken 01/18/17] Potassium Chloride 20 meq PO DAILY 09/16/16 [Last Taken 01/18/17] Rivaroxaban [Xarelto] 20 mg PO HS 09/16/16 [Last Taken 01/17/17] Tamsulosin HCl [Flomax 0.4 MG (*)] 0.4 mg PO DAILY 09/16/16 [Last Taken 01/18/17 ] amLODIPine BESYLATE [Amlodipine Besylate] 10 mg PO DAILY 09/16/16 [Last Taken ] Ondansetron [Ondansetron Odt] 8 mg PO Q8 PRN 12/30/16 [Last Taken Unknown] Sertraline HCl [Zoloft 100mg (*)] 150 mg PO DAILY 12/30/16 [Last Taken 01/18/17] fentaNYL [Duragesic 100 MCG Patch (*)] 100 mcg TD Q72H 12/30/16 [Last Taken 10/28] Metoprolol Tartrate [Lopressor 25 mg (*)] 12.5 mg PO DAILY #0 01/08/17 [Last Taken 01/18/17] fentaNYL [Duragesic 50 MCG Patch (*)] 50 mcg TD Q3D #10 patch 01/08/17 [Last Taken 01/18/17] Gabapentin 1,200 mg PO TID 01/19/17 [Last Taken 01/18/17 20:00] Sennosides [EX-LAX] 45 mg PO HS 01/19/17 [Last Taken 01/17/17] Zolpidem Tartrate [Ambien 5MG (*)] 10 mg PO HS 01/19/17 [Last Taken 01/17/17] HYDROmorphone HCL [Dilaudid 2 mg (*)] 4 mg PO Q6 PRN tab 01/20/17 [Last Taken Unknown] Naproxen Sodium [Aleve 220 MG (*)] 220 mg PO TID PRN #30 tab 01/20/17 [Last Taken Unknown] Lidocaine 5% [Lidoderm 5% Patch (*)] 1 ea TD DAILY patch 01/22/17 [Last Taken Unknown] Nitroglycerin [Nitrostat 0.4 mg (*)] 0.4 mg SL Q5M PRN btl 01/22/17 [Last Taken Unknown] Patch Removal 1 ea TD DAILY21 patch 01/22/17 [Last Taken Unknown] Discharge Medications: Refer to the Discharge Home Medication list for PRN reason. - Orders Services needed: Home Care, Certified Pole Peeler, Physical Therapy, Occupational Therapy Home Care Face to Face: I certify that this patient was under my care and that I had the required [id number] encounter meeting the encounter requirements on the discharge day. My findings support the fact that the patient is homebound as defined in Home Care Face to Face Continued: CMS Chapter 7 Medicare Benefits Manual 30.1.1 , The condition of the patient is such that there exists a normal inability to leave home and consequently, leaving home would require a considerable and taxing effort. Diet Recommendation: ADA 2200 consistent carb, breast feeding Diet Texture: Regular Texture Diet - Follow Up Care Current Providers and Referrals: LORRI SHAW [Other] - As per Instructions
--- NOTE | 2017-01-22 15:36 | ASMTCMCOM ---
CM Note CM Note Notes: Pt ready for DC today. [facility] alerted and final orders faxed. Met with pt's who was very tearful. She is overwhelmed with pt's diagnoosis. Pt had palliative referral at last DC but Linda stated they were not able to meet with pt before he was readmitted. requested they go out sooner at this DC. Faxed final orders to them as well. Gave ph # of [place] [facility]. made a red lipstick referral for pt. Date Signed: 01/22/2017 03:36 PM Electronically Signed By:Marlee Vail LCSW
--- NOTE | 2017-01-22 15:57 | ASDISCHSUM ---
Discharge Information Plan Status: Medically Cleared to Leave: Discharge Date:01/22/2017 12:46 PM D/C Disposition: ADT D/C Disposition:Home, Routine, Self-Care Projected Discharge Date:01/22/2017 11:00 AM Transportation at D/C: Discharge Delay Reason: Follow-Up Date:01/22/2017 11:00 AM Discharge Slot: Final Diagnosis: Placement Information Referral Type:*Home Health Care Services Referral ID:[id number] Provider Name:[facility] Address 1:[address] Address 2: City:[place] Selection Factors: State:[place] Referral Type:Palliative Care Referral ID:[id number] Provider Name:[facility] Address 1:[address] Phone Number: Address 2: Fax Number: [facility]:[place] Selection Factors: State:[place] Patient Contact Information Contact Name:SHASHANKEVONELAINE Relationship: Address:[address] Work Phone: City:[place] Alternate Phone: State/Zip Code:[place] [address] Email: Financial Information Financial Class: Primary Plan Desc:MEDICAID [facility] IP Primary Plan Number:[id number] Secondary Plan Desc: Secondary Plan Number: Assessment Information [facility] CM Progress Note CM Note CM Note Notes: Reviewed chart, spoke w/ ANT Nur re: d/c poc, pt's progress. Pt admitted for Taxol induced neuropathy; thoracic metastatic dx sec to stage IV squamous cell lung carcinoma. MRI done to r/o cord compression; MRI negative. Pt lives w/ his and 4 children. Per Onc, neuropathy typically resolves/improves w/in a few days of treatment. Anticipate pt will likely d/c home w/ family support when medically stable. CM will cont to follow. 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 Spoke w/Sarah from [facility] earlier and seemed like they would be able to accept but Sarah on site and said they cannot b/c M'Caicasey. She tried many other agencies but had no luck finding one that would take pt in [facility] and/or w/Arely'Lilia. Still waiting to hear back from [facility] and [facility] ([place] at [facility] [phone], f [phone])- I sent referrals to both of these. If neither of these can accept can try [facility] at [phone]. Pt has supportive at home and children in [facility]. reported she has a lad who comes into their mendy to help with household things. I gave them [facility] Wheels info. Anticipate pt will dc home tomorrow once we have C in place; d/w RN and Dr. Boland. Date Signed: 01/20/2017 04:16 PM Electronically Signed By:Suzanna Durbin RN [facility] CM Progress Note CM Note CM Note Notes: Chart reviewed. Discussed home care needs with . Spoke with [facility], and they are able to accept patient. Referral information sent. Spoke with regarding inquiry to Meals on Wheels, the [facility] does not provide the first 5 days of meals for for free like [facility]. She asked that I inquire about cost regarrdletyler, Message left with Yesenia to call me with information. CM to follow Date Signed: 01/21/2017 10:03 AM Electronically Signed By:Fe Uribe RN [facility] Progress Note CM Note CM Note Notes: Pt ready for DC today. [facility] alerted and final orders faxed. Met with pt's who was very tearful. She is overwhelmed with pt's diagnoosis. Pt had palliative referral at last DC but Linda stated they were not able to meet with pt before he was readmitted. requested they go out sooner at this DC. Faxed final orders to them as well. Gave ph # of [place] [facility] [employer]. made a red lipstick referral for pt. Date Signed: 01/22/2017 03:36 PM Electronically Signed By:Marlee Vail LCSW Intervention Information
== END 2017-01-22 12:46 | disposition home health service (06) | DRG 74 ==
LOC: F1N 01-19 02:55
PROVIDERS: ADMIT Family Medicine; ATTEND Internal Medicine
DX: G62.0 Drug-induced polyneuropathy (principal); K75.9 Inflammatory liver disease, unspecified; T45.1X5A Adverse effect of antineoplastic and immunosuppressive drugs, initial encounter; M47.897 Other spondylosis, lumbosacral region; E11.65 Type 2 diabetes mellitus with hyperglycemia; I10 Essential (primary) hypertension; E78.5 Hyperlipidemia, unspecified; C79.51 Secondary malignant neoplasm of bone; C34.90 Malignant neoplasm of unspecified part of unspecified bronchus or lung; C78.7 Secondary malignant neoplasm of liver and intrahepatic bile duct; R19.7 Diarrhea, unspecified; K21.9 Gastro-esophageal reflux disease without esophagitis; F51.04 Psychophysiologic insomnia; E87.1 Hypo-osmolality and hyponatremia; D64.9 Anemia, unspecified; N40.0 Benign prostatic hyperplasia without lower urinary tract symptoms; I48.91 Unspecified atrial fibrillation; Z79.01 Long term (current) use of anticoagulants; Z87.891 Personal history of nicotine dependence
CPT/HCPCS: 96374; 97110-GP; 97116-GP; 97162-GP; 97166-GO; 97530-GO; 97535-GO; A9585; J1170; J1815; J2405

== ENCOUNTER → 2017-04-17 | Outpatient (CLI) | payer MEDICAID ==
[~2017-04-17] MED LIST changes: +GADOBUTROL 10 ML VIAL IVP ONE; -IOPAMIDOL (ISOVUE-M 300) 15 ML VIAL ONE; -TRIAMCINOLONE ACETONIDE 200 MG/5 ML MDV IM ONE
== END ==
LOC: FIMAGING 10:17
PROVIDERS: ATTEND Nurse Practitioner
DX: R45.1 Restlessness and agitation (principal); C34.90 Malignant neoplasm of unspecified part of unspecified bronchus or lung
CPT/HCPCS: A9585